=== PATIENT | female | born 1965 | race American Indian/Alaskan Native ===

== ENCOUNTER 2019-07-03 17:28 | Inpatient (IN) | payer MEDICARE ==
[2019-07-03] MEDS ORDERED: MAGNESIUM SULFATE 2 GM/50 ML BAG IV ONE (17:35)
[2019-07-03] MEDS ORDERED: methylPREDNISolone Sod Succinate 125 MG/2 ML INJ IV ONE (17:35)
--- NOTE | 2019-07-03 17:35 | Emergency Department Report ---
ED Shortness of Breath HPI - General Stated Complaint: TIM Time Seen by Provider: 07/03/19 17:32 Source: patient, EMS Mode of arrival: Stretcher Limitations: No Limitations - History of Present Illness Initial Comments: Patient is a 54-year-old female that presents emergency room with complaints of shortness of breath and difficulty breathing. Patient called EMS because she barely walk due to the worse of breath. Patient states her symptoms are severe and worsening. Patient states her symptoms are better with rest and worse with cough and exertion. Patient states she's had a fever over the past few days. Patient denies past medical history except for anxiety. Patient states she does not have a history of asthma or COPD. Patient brought in by EMS and is currently on a albuterol breathing treatment. Report received from EMS. EMS states that the patient is initially 86 on room air and placed on nonrebreather and oxygen improved to 92 MD Complaint: shortness of breath, cough -: Sudden Severity: severe Improves With: oxygen, upright position Worsens With: lying flat, exertion, movement Treatments Prior to Arrival: oxygen, bronchodilator - Related Data Home Medications Medication Instructions Recorded Confirmed Last Taken No Known Home Medications [No 07/03/19 07/03/19 Unknown Reported Home Medications] Allergies Allergy/AdvReac Type Severity Reaction Status Date / Time No Known Allergies Allergy Unverified 07/03/19 17:38 ED Review of Systems ROS: Stated complaint: TIM Other details as noted in HPI Constitutional: denies: chills, fever Eyes: denies: eye pain, eye discharge, vision change ENT: denies: ear pain, throat pain Respiratory: cough, orthopnea, shortness of breath, SOB with exertion, SOB at rest. denies: wheezing Cardiovascular: denies: chest pain, palpitations Endocrine: no symptoms reported Gastrointestinal: denies: abdominal pain, nausea, diarrhea Genitourinary: denies: urgency, dysuria, discharge Musculoskeletal: denies: back pain, joint swelling, arthralgia Skin: denies: rash, lesions Neurological: denies: headache, weakness, paresthesias Psychiatric: denies: anxiety, depression Hematological/Lymphatic: denies: easy bleeding, easy bruising ED Past Medical Hx - Past Medical History Previous Medical History?: Yes Hx Psychiatric Treatment: Yes (anx) - Surgical History Past Surgical History?: Yes Additional Surgical History: RORY at 35 - Family History Family history: no significant - Social History Smoking Status: Never Smoker Substance Use Type: None - Medications Home Medications: Home Medications Medication Instructions Recorded Confirmed Last Taken Type No Known Home Medications [No 07/03/19 07/03/19 Unknown History Reported Home Medications] ED Physical Exam - General Limitations: No Limitations General appearance: alert, in distress - Head Head exam: Present: atraumatic, normocephalic - Eye Eye exam: Present: normal appearance - ENT ENT exam: Present: mucous membranes dry - Neck Neck exam: Present: normal inspection - Respiratory Respiratory exam: Present: respiratory distress, rales, rhonchi, accessory muscle use - Cardiovascular Cardiovascular Exam: Present: regular rate, normal rhythm. Absent: systolic murmur, diastolic murmur, rubs, gallop - GI/Abdominal GI/Abdominal exam: Present: soft, normal bowel sounds. Absent: distended, tenderness, guarding - Rectal Rectal exam: Present: deferred - Extremities Exam Extremities exam: Present: normal inspection - Back Exam Back exam: Present: normal inspection - Neurological Exam Neurological exam: Present: alert, oriented X3 - Psychiatric Psychiatric exam: Present: normal affect, normal mood - Skin Skin exam: Present: warm, dry, intact, normal color. Absent: rash ED Course Vital Signs 07/03/19 07/03/19 07/03/19 17:32 17:46 17:47 Temperature 97.6 F Pulse Rate 113 H Pulse Rate [ Apical] Respiratory 30 H 29 H Rate Blood Pressure Blood Pressure 154/112 [Left] O2 Sat by Pulse 88 94 94 Oximetry 07/03/19 07/03/19 07/03/19 18:00 18:14 18:31 Temperature Pulse Rate 102 H 97 H 99 H Pulse Rate [ Apical] Respiratory 26 H 30 H 30 H Rate Blood Pressure 159/116 159/116 159/116 Blood Pressure [Left] O2 Sat by Pulse 96 95 96 Oximetry 07/03/19 07/03/19 07/03/19 18:35 19:13 19:31 Temperature Pulse Rate 97 H Pulse Rate [ Apical] Respiratory 30 H 21 28 H Rate Blood Pressure 150/112 150/112 150/112 Blood Pressure [Left] O2 Sat by Pulse 94 95 94 Oximetry 07/03/19 07/03/19 07/03/19 19:34 20:00 20:30 Temperature Pulse Rate 117 H Pulse Rate [ Apical] Respiratory 31 H 28 H 30 H Rate Blood Pressure 148/105 Blood Pressure [Left] O2 Sat by Pulse 96 91 99 Oximetry 07/03/19 07/03/19 07/03/19 20:31 21:00 21:41 Temperature Pulse Rate 115 H 106 H Pulse Rate [ Apical] Respiratory 34 H 29 H 22 Rate Blood Pressure 148/105 146/114 137/78 Blood Pressure [Left] O2 Sat by Pulse 96 96 99 Oximetry 07/03/19 21:45 Temperature Pulse Rate Pulse Rate [ 133 H Apical] Respiratory 35 H Rate Blood Pressure Blood Pressure [Left] O2 Sat by Pulse 93 Oximetry - Reevaluation(s) Reevaluation #1: Initial evaluation done and patient will be placed on BiPAP. On 15 L of oxygen and is still 86% 07/03/19 17:39 Reevaluation #2: Patient placed on BiPAP and O2 saturation improved. Patient given Solu-Medrol. X-ray done and shows pulmonary edema. 07/03/19 18:03 Reevaluation #3: Patient's sat improving. Patient is on BiPAP. Patient given Lasix. 07/03/19 18:40 Reevaluation #4: Discussed all results with patient. Patient agrees with plan of care and admission. Patient will be admitted to the hospital service. Patient's heart rate worsening and patient's rhonchi is increasing. Patient will be given a fluid challenge. 07/03/19 20:23 - Consultations Consultation #1: Hospitalist consult for admission. Hospitalist to admit patient. 07/03/19 20:23 ED Medical Decision Making - Lab Data Result diagrams: 07/03/19 17:54 07/03/19 17:54 - EKG Data -: EKG Interpreted by [place] EKG shows normal: sinus rhythm, axis, intervals, QRS complexes, ST-T waves Rate: normal - Radiology Data Radiology results: report reviewed, image reviewed CHEST 1 VIEW INDICATION / CLINICAL INFORMATION: Dyspnea. COMPARISON: None available. FINDINGS: SUPPORT DEVICES: None. HEART / MEDIASTINUM: No significant abnormality. LUNGS / PLEURA: Diffuse interstitial opacity and patchy areas of the airspace disease in both lungs. In the left upper lobe there are nodular appearing densities that may represent confluent are as of consolidation. A small left pleural effusion is noted No pneumothorax. ADDITIONAL FINDINGS: No significant additional findings. IMPRESSION: 1. Diffuse interstitial and patchy bilateral airspace opacities 2. Possible nodularity in the left upper lobe. CT angio chest INDICATION / CLINICAL INFORMATION: sob. TECHNIQUE: Precontrast bolus timing images were obtained followed by postcontrast axial and reformatted images. 3-plane MIP reconstructions were performed at an independent workstation by the technologist. All CT scans at this location are performed using CT dose reduction for ALARA by means of automated exposure control. COMPARISON: None available. FINDINGS: Pulmonary arterial enhancement is normal, no evidence of pulmonary embolus. There is diffuse interstitial opacity in patchy, mosaic pattern of groundglass opacity in both lungs, upper zone predominance. Findings are particularly dense in the left upper lobe but no discrete pulmonary nodules are visualized. No mediastinal adenopathy. There are small bilateral pleural effusions. Limited upper abdominal images are remarkable for atrophy of the right kidney. No significant osseous abnormality. IMPRESSION: 1. No evidence of pulmonary embolus. 2. Extensive bilateral pulmonary parenchymal disease characterized by interstitial opacity and groundglass densities. 3. Small bilateral pleural effusions. - Medical Decision Making Patient is a 54-year-old female that presents emergency room with respiratory distress, difficulty breathing, shortness of breath. Patient initial chest x- ray showed pulmonary edema and patient was treated with Lasix. After the CT was done it appeared that the patient was more a pneumonia and SIRS, so the patient was given fluids and antibiotics. Patient responded well ER. Patient was placed on BiPAP as well on initial evaluation patient's oxygen saturation improved. Patient was initially hypoxic. Patient also found to be tachycardic. Patient's blood pressure was stable in the ER. Patient's labs unremarkable except for elevated WBC, lactic acidosis and acidosis. Patient admitted to the hospitalist service and to the ICU. - Differential Diagnosis SOB. TIM. Resp distress. Respiratory failure. Hypoxia. SIRS. PNA Critical Care Time: Yes Critical care attestation.: If time is entered above; I have spent that time in minutes in the direct care of this critically ill patient, excluding procedure time. Critical Care Time: 65 minutes ED Disposition Clinical Impression: Respiratory distress, SOB (shortness of breath), Hypoxia, SIRS (systemic inflammatory response syndrome), Acidosis, Lactic acid acidosis Pneumonia Qualifiers: Pneumonia type: due to unspecified organism Laterality: bilateral Lung location: unspecified part of lung Qualified Code(s): J18.9 - Pneumonia, unspecified organism Pulmonary edema Qualifiers: Chronicity: acute Qualified Code(s): J81.0 - Acute pulmonary edema Respiratory failure Qualifiers: Chronicity: acute Respiratory failure complication: hypoxia Qualified Code(s): J96.01 - Acute respiratory failure with hypoxia Disposition: DC-09 OP ADMIT IP TO THIS HOSP Is pt being admited?: Yes Does the pt Need Aspirin: No Condition: Critical Time of Disposition: 20:22
[2019-07-03] MEDS ORDERED: CEFEPIME/NS 2 GM/100 ML 2 GM/100 ML BAG IV ONE (17:37)
[2019-07-03 18:05] LABS: Basophils # (Auto) 0.1 K/mm3 (0.0-0.1); Basophils % (Auto) 0.6 % (0.0-1.8); Hemoglobin 15.4 gm/dl (10.1-14.3); Lymphocytes % (Auto) 7.9 % (13.4-35.0); Mean Corpuscular HGB Conc 34 % (30-34); Mean Corpuscular Volume 99 fl (79-97); Monocytes # (Auto) 0.6 K/mm3 (0.0-0.8); Monocytes % (Auto) 4.9 % (0.0-7.3); Platelet Count 221 K/mm3 (140-440); Red Blood Count 4.63 M/mm3 (3.65-5.03); Red Cell Distribution Width 13.4 % (13.2-15.2)
[2019-07-03] MEDS ORDERED: FUROSEMIDE 40 MG/4 ML INJ IV ONE ×2 (18:06→20:17)
--- NOTE | 2019-07-03 18:22 | XRay Report ---
CHEST 1 VIEW INDICATION / CLINICAL INFORMATION: Dyspnea. COMPARISON: None available. FINDINGS: SUPPORT DEVICES: None. HEART / MEDIASTINUM: No significant abnormality. LUNGS / PLEURA: Diffuse interstitial opacity and patchy areas of the airspace disease in both lungs. In the left upper lobe there are nodular appearing densities that may represent confluent areas of co nsolidation. A small left pleural effusion is noted No pneumothorax. ADDITIONAL FINDINGS: No significant additional findings. IMPRESSION: 1. Diffuse interstitial and patchy bilateral airspace opacities 2. Possible nodularity in the left upper lobe. Signer Name: Swapnil Kinney MD Signed: 07/03/2019 6:18 PM Workstation Name: [id number]
[2019-07-03 18:27] LABS: Alanine Aminotransferase 272 units/L (7-56); Albumin 4.1 g/dL (3.9-5); BUN/Creatinine Ratio 17; Blood Urea Nitrogen 15 mg/dL (7-17); Hemolysis Index 90
--- NOTE | 2019-07-03 20:06 | Cat Scan Report ---
CT angio chest INDICATION / CLINICAL INFORMATION: sob. TECHNIQUE: Precontrast bolus timing images were obtained followed by postcontrast axial and reformatted images. 3-plane MIP reconstructions were performed at an independent workstation by the technologist. All CT scans at this location are performed using CT dose reduction for ALARA by means of automated exposure control. COMPARISON: None available. FINDINGS: Pulmonary arterial enhancement is normal, no evidence of pulmonary embolus. There is diffuse interstitial opacity in patchy, mosaic pattern of groundglass opacity in both lungs, upper zone predominance. Findings are particularly dense in the left upper lobe but no discrete pulmonary nodules are visualiz ed. No mediastinal adenopathy. There are small bilateral pleural effusions. Limited upper abdominal images are remarkable for atrophy of the right kidney. No significant osseous abnormality. IMPRESSION: 1. No evidence of pulmonary embolus. 2. Extensive bilateral pulmonary parenchymal disease characterized by interstitial opacity and ground glass densities. 3. Small bilateral pleural effusions. Signer Name: Swapnil Kinney MD Signed: 07/03/2019 8:02 PM Workstation Name: [id number]
--- NOTE | 2019-07-03 20:29 | History and Physical Report ---
History of Present Illness Chief complaint: I cant breathe History of present illness: 54 YO Female with Anxiety presents to ED for evaluation. Pt states that she has experienced shortness of breath over the past 1 day with worsening symptoms over the past 8 hours. Pt is unable to speak in complete sentences, and is using accessory muscles to breathe. EMS notified, and upon arrival the patient was found to be in distress. Pt transported to [facility]. Pt seen and evaluated in ED and found to have Acute Hypoxemic Respiratory Failure, SIRS, Bilateral Pneumonia, and Acidosis. Pt admitted to ICU and treated with supplemental oxygen, and nebulizer therapy without improvement. Pt denies fever, chills, CP, Palpitations, NVD, Trauma, Hemoptysis, Unilateral leg swelling, calf pain, Individual/Family history of DVT/PE/Bleeding/Blood Clotting Disorders, Inhalation of noxious/toxic fumes, or known ill contacts. Pt admitted to ICU. Pulmonary team consulted in ED. No prior admission for review. No medication listed for reconciliation at time of admission. Past History Past Medical History: other (Anxiety) Past Surgical History: hysterectomy Social history: single. denies: smoking, alcohol abuse, prescription drug abuse Family history: no significant family history (reviewed) Medications and Allergies Allergies Allergy/AdvReac Type Severity Reaction Status Date / Time No Known Allergies Allergy Unverified 07/03/19 17:38 Home Medications Medication Instructions Recorded Confirmed Last Taken Type No Known Home Medications [No 07/03/19 07/03/19 Unknown History Reported Home Medications] Review of Systems Constitutional: no weight loss, no weight gain, no fever, no chills Ears, nose, mouth and throat: no ear pain, no ear discharge, no tinnitis, no decreased hearing, no nose pain, no nasal congestion, no nasal discharge Breasts: no change in shape, no mass Cardiovascular: shortness of breath, no chest pain, no orthopnea, no palpitations Respiratory: no cough, no cough with sputum, no excessive sputum, no hemoptysis Gastrointestinal: no abdominal pain, no nausea, no vomiting, no diarrhea, no change in bowel habits, no hematemesis Genitourinary Female: no dysmenorrhea, no pelvic pain, no flank pain, no m enorrhagia, no dysuria, no urinary frequency, no urgency Menstruation: no currently menstrual, no premenarcheal, no post hysterectomy, no ammenorrhea, no ammenorrhea on BC, no period heavy, no period spotting Rectal: no pain, no incontinence, no bleeding, no itching, no hemorrhoids, no discharge Musculoskeletal: no neck stiffness, no neck pain, no shooting arm pain, no low back pain, no shooting leg pain, no leg numbness/tingling Integumentary: no rash, no pruritis, no sores, no wounds, no jaundice, no boils Neurological: no head injury, no transient paralysis, no paralysis, no numbness, no seizures, no syncope, no tremors Psychiatric: no anxiety, no memory loss, no change in sleep habits, no sleep disturbances, no insomnia, no change in libido, no disorientation Endocrine: no cold intolerance, no heat intolerance, no excessive thirst, no polydipsia, no nocturia, no excessive sweating Hematologic/Lymphatic: no easy bruising, no easy bleeding, no lymphadenopathy Allergic/Immunologic: no urticaria, no allergic rhinitis, no persistent infections, no anaphylaxis Exam - Constitutional Vitals: Temp Pulse Resp BP Pulse Ox 97.6 F 117 H 31 H 150/112 96 07/03/19 17:46 07/03/19 19:34 07/03/19 19:34 07/03/19 18:35 07/03/19 19:34 General appearance: Present: severe distress - EENT Eyes: Present: PERRL ENT: hearing intact, clear oral mucosa - Neck Neck: Present: supple, normal ROM - Respiratory Respiratory effort: labored, pursed lips, accessory muscle use, stridor Respiratory: left: diminished - Cardiovascular Rhythm: other (tachycardia) Heart Sounds: Present: S1 & S2. Absent: rub, click - Extremities Extremities: pulses symmetrical, No edema Peripheral Pulses: within normal limits - Abdominal General gastrointestinal: Present: soft, non-tender, non-distended, normal bowel sounds Female genitourinary: Present: normal - Musculoskeletal Musculoskeletal: generalized weakness - Psychiatric Psychiatric: agitated - Neurologic Neurologic: CNII-XII intact, moves all extremities Results - Labs CBC & Chem 7: 07/03/19 17:54 07/03/19 17:54 Labs: Abnormal lab results 07/03/19 07/03/19 07/03/19 Range/Units 17:54 17:54 17:54 WBC 12.6 H (4.5-11.0) K/mm3 Hgb 15.4 H (10.1-14.3) gm/dl Hct 46.0 H (30.3-42.9) % MCV 99 H (79-97) fl MCH 33 H (28-32) pg Lymph % (Auto) 7.9 L (13.4-35.0) % Lymph # 1.0 L (1.2-5.4) K/mm3 Seg Neutrophils % 86.6 H (40.0-70.0) % Seg Neutrophils # 11.0 H (1.8-7.7) K/mm3 POC ABG pH (7.35-7.45) POC ABG pO2 (80-105) VBG pH (7.320-7.420) Carbon Dioxide 16 L (22-30) mmol/L Glucose 210 H (65-100) mg/dL Lactic Acid 7.90 H* (0.7-2.0) mmol/L AST 226 H (5-40) units/L ALT 272 H (7-56) units/L 07/03/19 07/03/19 07/03/19 Range/Units 17:59 18:41 19:15 WBC (4.5-11.0) K/mm3 Hgb (10.1-14.3) gm/dl Hct (30.3-42.9) % MCV (79-97) fl MCH (28-32) pg Lymph % (Auto) (13.4-35.0) % Lymph # (1.2-5.4) K/mm3 Seg Neutrophils % (40.0-70.0) % Seg Neutrophils # (1.8-7.7) K/mm3 POC ABG pH 7.305 L (7.35-7.45) POC ABG pO2 77 L (80-105) VBG pH 7.174 L* (7.320-7.420) Carbon Dioxide (22-30) mmol/L Glucose (65-100) mg/dL Lactic Acid 6.90 H* (0.7-2.0) mmol/L AST (5-40) units/L ALT (7-56) units/L Assessment and Plan - Patient Problems (1) Respiratory failure Current Visit: Yes Status: Acute Qualifiers: Respiratory failure complication: hypoxia Plan to address problem: Admit to ICU: Chest X ray, CT chest, ABG, pulse oximetry, NIPPV as clinically indicated, Pulmonary consulted, The high probability of a clinically significant, sudden or life threatening deterioration of the [repiratory, neuro, renal] system(s) required my full and direct attention, intervention and personal management. The aggregate critical care time was [65] minutes. This time is in addition to time spent performing reported procedures but includes the following: [x] Data Review and interpretation [x] Patient assessment and monitoring of vital signs [x] Documentation [x] Medication orders and management (2) Pneumonia Current Visit: Yes Status: Acute Qualifiers: Laterality: bilateral Plan to address problem: Pneumonia protocol: Chest x ray, IV antibiotic therapy, blood cultures, supplemental oxygen, nebulizer therapy, pulse oximetry, (3) SIRS (systemic inflammatory response syndrome) Current Visit: Yes Status: Acute Plan to address problem: IV antibiotic therapy, CBC, CMP, chest x ray, urinalysis. (4) Elevated LFTs Current Visit: Yes Status: Acute Plan to address problem: Hepatic panel, (5) Acidosis Current Visit: Yes Status: Acute Plan to address problem: IV fluid resuscitation therapy, IV bicarbonate therapy (6) DVT prophylaxis Current Visit: Yes Status: Acute Plan to address problem: SCD to BLE while in bed
[2019-07-03] MEDS ORDERED: ALBUTEROL 2.5 MG/3 ML NEBU IH PRN (20:30)
[2019-07-03] MEDS ORDERED: FUROSEMIDE 40 MG/4 ML INJ ONE (20:31)
[2019-07-03] MEDS ORDERED: SODIUM CHLORIDE 0.9% 1000 ML 1,000 ML IV ONE ×2 (20:37→21:25)
[2019-07-03] MEDS ORDERED: SODIUM CHLORIDE 0.9% 1000 ML 1,000 ML ONE (20:38)
[2019-07-03] MEDS ORDERED: SODIUM BICARB 8.4% 50 MEQ/50 ML SYRINGE IV ONE (21:00)
[2019-07-03 21:12] LABS: Alanine Aminotransferase 283 units/L (7-56); Albumin 4.5 g/dL (3.9-5)
[2019-07-03 21:14] LABS: Bilirubin,Direct < 0.2 mg/dL (0-0.2)
[2019-07-03] MEDS: FUROSEMIDE 40 MG/4 ML INJ IV SCH (23:37)
[2019-07-04 04:21] LABS: Basophils % (Auto) 0.2 % (0.0-1.8); Hematocrit 47.9 % (30.3-42.9); Hemoglobin 16.6 gm/dl (10.1-14.3); Lymphocytes # (Auto) 1.1 K/mm3 (1.2-5.4); Lymphocytes % (Auto) 7.1 % (13.4-35.0); Mean Corpuscular HGB Conc 35 % (30-34); Mean Corpuscular Volume 97 fl (79-97); Monocytes # (Auto) 0.6 K/mm3 (0.0-0.8); Monocytes % (Auto) 4.1 % (0.0-7.3); Platelet Count 195 K/mm3 (140-440); Red Blood Count 4.96 M/mm3 (3.65-5.03); Red Cell Distribution Width 13.6 % (13.2-15.2)
[2019-07-04 04:46] LABS: Alanine Aminotransferase 224 units/L (7-56); Albumin 3.9 g/dL (3.9-5); BUN/Creatinine Ratio 18; Blood Urea Nitrogen 18 mg/dL (7-17); Calcium 9.1 mg/dL (8.4-10.2); Hemolysis Index 28
[2019-07-04] MEDS: FUROSEMIDE 40 MG/4 ML INJ IV SCH ×2 (05:22→18:44)
[2019-07-04 06:50] LABS: ABG Base Excess -7.1 mmol/L (-2.0-3.0); ABG HCO3 15.7 mmol/L (20.0-26.0); ABG Methemoglobin 0.5 % (0.0-1.5); ABG Oxygen Saturation 98.8 % (95.0-99.0); ABG PCO2 26.1 mm Hg; ABG PH 7.398 pH Units (7.350-7.450); ABG PO2 141.7 mm Hg (80.0-90.0)
--- NOTE | 2019-07-04 08:17 | Consultation ---
History of Present Illness Consult date: 07/04/19 Requesting physician: DB CASTELLANOS Reason for consult: other (Acute Hypoxemic Respiratory Failure) History of present illness: PULMONARY/CCM CONSULT NOTE (Full dictation # [id number]) Please see dictated notes for full details Past History Past Medical History: other (Anxiety) Past Surgical History: hysterectomy Social history: single. denies: smoking, alcohol abuse, prescription drug abuse Family history: no significant family history (reviewed) Medications and Allergies Allergies Allergy/AdvReac Type Severity Reaction Status Date / Time No Known Allergies Allergy Unverified 07/03/19 17:38 Home Medications Medication Instructions Recorded Confirmed Last Taken Type No Known Home Medications [No 07/03/19 07/03/19 Unknown History Reported Home Medications] Active Meds: Active Medications Albuterol (Proventil) 2.5 mg IH Q3H PRN PRN Reason: Shortness Of Breath Enoxaparin Sodium (Lovenox) 40 mg SUB-Q QDAY SHYANN Furosemide (Lasix) 40 mg IV 0600,1800 [facility] Last Admin: 07/04/19 05:22 Dose: 40 mg Documented by: Levofloxacin/Dextrose (Levaquin 750mg/150ml) 750 mg in 150 mls @ 100 mls/hr IV Q24H SHYANN; Protocol Stop: 07/07/19 22:29 Last Admin: 07/03/19 23:17 Dose: 100 mls/hr Documented by: Sodium Chloride (Sodium Chloride Flush Syringe 10 Ml) 10 ml IV BID SHYANN Last Admin: 07/03/19 23:15 Dose: 10 ml Documented by: Sodium Chloride (Sodium Chloride Flush Syringe 10 Ml) 10 ml IV PRN PRN PRN Reason: LINE FLUSH Physical Examination Vital signs: Vital Signs Pulse Ox 88 07/03/19 17:32 Results - Laboratory Findings CBC and BMP: 07/04/19 04:02 07/04/19 04:02 ABG POC ABG pH 7.246 (7.35-7.45) L 07/03/19 23:02 ABG pH 7.398 pH Units (7.350-7.450) 07/04/19 06:30 POC ABG pCO2 30.4 (35-45) L 07/03/19 23:02 ABG pCO2 26.1 mm Hg 07/04/19 06:30 POC ABG pO2 75 (80-105) L 07/03/19 23:02 ABG pO2 141.7 mm Hg (80.0-90.0) H 07/04/19 06:30 POC ABG HCO3 13.2 (22-26 mml/L) 07/03/19 23:02 POC ABG Total CO2 14 (23-27mmol/L) 07/03/19 23:02 POC ABG O2 Sat 92 07/03/19 23:02 ABG O2 Saturation 98.8 % (95.0-99.0) 07/04/19 06:30 Abnormal lab findings: Abnormal Labs 07/03/19 07/03/19 07/03/19 17:54 17:54 17:54 WBC 12.6 H Hgb 15.4 H Hct 46.0 H MCV 99 H MCH 33 H MCHC Lymph % (Auto) 7.9 L Lymph # 1.0 L Seg Neutrophils % 86.6 H Seg Neutrophils # 11.0 H POC ABG pH POC ABG pCO2 POC ABG pO2 ABG pO2 ABG HCO3 ABG Base Excess VBG pH Carbon Dioxide 16 L BUN Glucose 210 H Lactic Acid 7.90 H* AST 226 H ALT 272 H Total Protein 07/03/19 07/03/19 07/03/19 17:59 18:41 19:15 WBC Hgb Hct MCV MCH MCHC Lymph % (Auto) Lymph # Seg Neutrophils % Seg Neutrophils # POC ABG pH 7.305 L POC ABG pCO2 POC ABG pO2 77 L ABG pO2 ABG HCO3 ABG Base Excess VBG pH 7.174 L* Carbon Dioxide BUN Glucose Lactic Acid 6.90 H* AST ALT Total Protein 07/03/19 07/03/19 07/03/19 20:37 20:37 21:51 WBC Hgb Hct MCV MCH MCHC Lymph % (Auto) Lymph # Seg Neutrophils % Seg Neutrophils # POC ABG pH POC ABG pCO2 POC ABG pO2 ABG pO2 ABG HCO3 ABG Base Excess VBG pH Carbon Dioxide BUN Glucose Lactic Acid 6.50 H* 5.80 H* AST 257 H ALT 283 H Total Protein 8.3 H 07/03/19 07/04/19 07/04/19 23:02 00:46 04:02 WBC 15.2 H Hgb 16.6 H Hct 47.9 H MCV MCH 34 H MCHC 35 H Lymph % (Auto) 7.1 L Lymph # 1.1 L Seg Neutrophils % 88.6 H Seg Neutrophils # 13.5 H POC ABG pH 7.246 L POC ABG pCO2 30.4 L POC ABG pO2 75 L ABG pO2 ABG HCO3 ABG Base Excess VBG pH Carbon Dioxide BUN Glucose Lactic Acid 8.00 H* AST ALT Total Protein 07/04/19 07/04/19 04:02 06:30 WBC Hgb Hct MCV MCH MCHC Lymph % (Auto) Lymph # Seg Neutrophils % Seg Neutrophils # POC ABG pH POC ABG pCO2 POC ABG pO2 ABG pO2 141.7 H ABG HCO3 15.7 L ABG Base Excess -7.1 L VBG pH Carbon Dioxide 17 L BUN 18 H Glucose 138 H Lactic Acid AST 137 H ALT 224 H Total Protein
[2019-07-04] MEDS ORDERED: FAMOTIDINE 20 MG/2 ML INJ IV SCH (10:00)
[2019-07-04] MEDS: ENOXAPARIN 40 MG/0.4 ML INJ SUB-Q SCH (10:07)
--- NOTE | 2019-07-04 13:01 | Progress Note ---
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 The aggregate critical care time was [35] minutes. This time is in addition to time spent performing reported procedures but includes the following: [x] Data Review and interpretation [x] Patient assessment and monitoring of vital signs [x] Documentation [x] Medication orders and management Subjective Date of service: 07/04/19 Interval history: Ptaient seen and examined On NRB - 100% Fio2 family at bedside c/o SOB even while speaks Objective - Constitutional Vitals: Vital Signs - 12hr 07/04/19 07/04/19 07/04/19 01:00 01:11 01:21 Temperature Pulse Rate 115 H 115 H 114 H Pulse Rate [ Apical] Respiratory 32 H 32 H 30 H Rate Blood Pressure 127/100 129/98 129/98 O2 Sat by Pulse 97 97 98 Oximetry 07/04/19 07/04/19 07/04/19 01:30 01:41 01:51 Temperature Pulse Rate 112 H 112 H 120 H Pulse Rate [ Apical] Respiratory 30 H 31 H 29 H Rate Blood Pressure 123/97 123/97 123/97 O2 Sat by Pulse 98 100 99 Oximetry 07/04/19 07/04/19 07/04/19 02:00 02:11 02:21 Temperature Pulse Rate 114 H 114 H 114 H Pulse Rate [ Apical] Respiratory 32 H 30 H 31 H Rate Blood Pressure 115/90 115/90 115/90 O2 Sat by Pulse 96 100 99 Oximetry 07/04/19 07/04/19 07/04/19 02:30 02:41 02:51 Temperature Pulse Rate 111 H 118 H 110 H Pulse Rate [ Apical] Respiratory 30 H 30 H 32 H Rate Blood Pressure 115/91 115/90 115/90 O2 Sat by Pulse 98 99 99 Oximetry 07/04/19 07/04/19 07/04/19 03:00 03:11 03:21 Temperature Pulse Rate 111 H 110 H 110 H Pulse Rate [ 114 H Apical] Respiratory 31 H 30 H 30 H Rate Blood Pressure 118/94 115/91 115/91 O2 Sat by Pulse 99 99 100 Oximetry 07/04/19 07/04/19 07/04/19 03:30 03:41 03:51 Temperature Pulse Rate 114 H 113 H 118 H Pulse Rate [ Apical] Respiratory 26 H 30 H 29 H Rate Blood Pressure 121/87 118/94 118/94 O2 Sat by Pulse 97 100 99 Oximetry 07/04/19 07/04/19 07/04/19 04:00 04:11 04:21 Temperature 97.8 F Pulse Rate 115 H 121 H 122 H Pulse Rate [ Apical] Respiratory 29 H 31 H 60 H Rate Blood Pressure 121/86 121/86 121/86 O2 Sat by Pulse 99 99 99 Oximetry 07/04/19 07/04/19 07/04/19 04:30 04:41 04:51 Temperature Pulse Rate 116 H 115 H 113 H Pulse Rate [ Apical] Respiratory 26 H 31 H 26 H Rate Blood Pressure 119/94 119/94 121/86 O2 Sat by Pulse 98 100 100 Oximetry 07/04/19 07/04/19 07/04/19 05:00 05:11 05:21 Temperature Pulse Rate 118 H 111 H 111 H Pulse Rate [ Apical] Respiratory 23 30 H 30 H Rate Blood Pressure 112/89 112/89 119/94 O2 Sat by Pulse 99 99 98 Oximetry 07/04/19 07/04/19 07/04/19 05:30 05:41 05:51 Temperature Pulse Rate 109 H 108 H 103 H Pulse Rate [ Apical] Respiratory 30 H 30 H 30 H Rate Blood Pressure 118/95 118/95 118/95 O2 Sat by Pulse 95 97 97 Oximetry 07/04/19 07/04/19 07/04/19 06:01 06:11 06:31 Temperature Pulse Rate 111 H 110 H 114 H Pulse Rate [ Apical] Respiratory 31 H 30 H 31 H Rate Blood Pressure 118/95 118/95 78/61 O2 Sat by Pulse 97 99 93 Oximetry 07/04/19 07/04/19 07/04/19 07:00 07:30 07:35 Temperature Pulse Rate 100 H 106 H Pulse Rate [ Apical] Respiratory 30 H 30 H Rate Blood Pressure 102/78 112/87 O2 Sat by Pulse 98 98 95 Oximetry 07/04/19 07/04/19 07/04/19 08:00 08:30 09:00 Temperature 98.3 F Pulse Rate 112 H 111 H 120 H Pulse Rate [ Apical] Respiratory 25 H 30 H 33 H Rate Blood Pressure 115/92 112/88 125/89 O2 Sat by Pulse 93 92 90 Oximetry 07/04/19 07/04/19 07/04/19 09:30 10:00 10:30 Temperature Pulse Rate 113 H 110 H 107 H Pulse Rate [ Apical] Respiratory 30 H 31 H 34 H Rate Blood Pressure 112/82 127/95 127/95 O2 Sat by Pulse 87 91 Oximetry 07/04/19 07/04/19 07/04/19 11:00 11:56 12:00 Temperature 97.7 F Pulse Rate 107 H Pulse Rate [ 103 H Apical] Respiratory 30 H 31 H Rate Blood Pressure 129/98 O2 Sat by Pulse 94 Oximetry General appearance: Present: mild distress, well-nourished - EENT Eyes: PERRL, EOM intact ENT: hearing intact, clear oral mucosa Ears: bilateral: normal - Neck Neck: supple, normal ROM - Respiratory Respiratory effort: labored Respiratory: bilateral: diminished, rales, wheezing - Cardiovascular Rhythm: regular Heart Sounds: Present: S1 & S2. Absent: gallop, rub Extremities: pulses intact, No edema, normal color, Full ROM - Gastrointestinal General gastrointestinal: Present: soft, non-tender, non-distended, normal bowel sounds - Integumentary Integumentary: clear, warm, dry - Musculoskeletal Musculoskeletal: 1, strength equal bilaterally - Neurologic Neurologic: moves all extremities - Psychiatric Psychiatric: memory intact, appropriate mood/affect, intact judgment & insight - Labs CBC & Chem 7: 07/04/19 04:02 07/05/19 13:01 Labs: Abnormal lab results 07/03/19 07/03/19 07/03/19 Range/Units 17:54 17:54 17:54 WBC 12.6 H (4.5-11.0) K/mm3 Hgb 15.4 H (10.1-14.3) gm/dl Hct 46.0 H (30.3-42.9) % MCV 99 H (79-97) fl MCH 33 H (28-32) pg MCHC (30-34) % Lymph % (Auto) 7.9 L (13.4-35.0) % Lymph # 1.0 L (1.2-5.4) K/mm3 Seg Neutrophils % 86.6 H (40.0-70.0) % Seg Neutrophils # 11.0 H (1.8-7.7) K/mm3 POC ABG pH (7.35-7.45) POC ABG pCO2 (35-45) POC ABG pO2 (80-105) ABG pO2 (80.0-90.0) mm Hg ABG HCO3 (20.0-26.0) mmol/L ABG Base Excess (-2.0-3.0) mmol/L VBG pH (7.320-7.420) Carbon Dioxide 16 L (22-30) mmol/L BUN (7-17) mg/dL Glucose 210 H (65-100) mg/dL Lactic Acid 7.90 H* (0.7-2.0) mmol/L AST 226 H (5-40) units/L ALT 272 H (7-56) units/L C-Reactive Protein (0.00-1.30) mg/dL NT-Pro-B Natriuret Pep (0-900) pg/mL Total Protein (6.3-8.2) g/dL 07/03/19 07/03/19 07/03/19 Range/Units 17:59 18:41 19:15 WBC (4.5-11.0) K/mm3 Hgb (10.1-14.3) gm/dl Hct (30.3-42.9) % MCV (79-97) fl MCH (28-32) pg MCHC (30-34) % Lymph % (Auto) (13.4-35.0) % Lymph # (1.2-5.4) K/mm3 Seg Neutrophils % (40.0-70.0) % Seg Neutrophils # (1.8-7.7) K/mm3 POC ABG pH 7.305 L (7.35-7.45) POC ABG pCO2 (35-45) POC ABG pO2 77 L (80-105) ABG pO2 (80.0-90.0) mm Hg ABG HCO3 (20.0-26.0) mmol/L ABG Base Excess (-2.0-3.0) mmol/L VBG pH 7.174 L* (7.320-7.420) Carbon Dioxide (22-30) mmol/L BUN (7-17) mg/dL Glucose (65-100) mg/dL Lactic Acid 6.90 H* (0.7-2.0) mmol/L AST (5-40) units/L ALT (7-56) units/L C-Reactive Protein (0.00-1.30) mg/dL NT-Pro-B Natriuret Pep (0-900) pg/mL Total Protein (6.3-8.2) g/dL 07/03/19 07/03/19 07/03/19 Range/Units 20:37 20:37 21:51 WBC (4.5-11.0) K/mm3 Hgb (10.1-14.3) gm/dl Hct (30.3-42.9) % MCV (79-97) fl MCH (28-32) pg MCHC (30-34) % Lymph % (Auto) (13.4-35.0) % Lymph # (1.2-5.4) K/mm3 Seg Neutrophils % (40.0-70.0) % Seg Neutrophils # (1.8-7.7) K/mm3 POC ABG pH (7.35-7.45) POC ABG pCO2 (35-45) POC ABG pO2 (80-105) ABG pO2 (80.0-90.0) mm Hg ABG HCO3 (20.0-26.0) mmol/L ABG Base Excess (-2.0-3.0) mmol/L VBG pH (7.320-7.420) Carbon Dioxide (22-30) mmol/L BUN (7-17) mg/dL Glucose (65-100) mg/dL Lactic Acid 6.50 H* 5.80 H* (0.7-2.0) mmol/L AST 257 H (5-40) units/L ALT 283 H (7-56) units/L C-Reactive Protein (0.00-1.30) mg/dL NT-Pro-B Natriuret Pep (0-900) pg/mL Total Protein 8.3 H (6.3-8.2) g/dL 07/03/19 07/04/19 07/04/19 Range/Units 23:02 00:46 04:02 WBC 15.2 H (4.5-11.0) K/mm3 Hgb 16.6 H (10.1-14.3) gm/dl Hct 47.9 H (30.3-42.9) % MCV (79-97) fl MCH 34 H (28-32) pg MCHC 35 H (30-34) % Lymph % (Auto) 7.1 L (13.4-35.0) % Lymph # 1.1 L (1.2-5.4) K/mm3 Seg Neutrophils % 88.6 H (40.0-70.0) % Seg Neutrophils # 13.5 H (1.8-7.7) K/mm3 POC ABG pH 7.246 L (7.35-7.45) POC ABG pCO2 30.4 L (35-45) POC ABG pO2 75 L (80-105) ABG pO2 (80.0-90.0) mm Hg ABG HCO3 (20.0-26.0) mmol/L ABG Base Excess (-2.0-3.0) mmol/L VBG pH (7.320-7.420) Carbon Dioxide (22-30) mmol/L BUN (7-17) mg/dL Glucose (65-100) mg/dL Lactic Acid 8.00 H* (0.7-2.0) mmol/L AST (5-40) units/L ALT (7-56) units/L C-Reactive Protein (0.00-1.30) mg/dL NT-Pro-B Natriuret Pep (0-900) pg/mL Total Protein (6.3-8.2) g/dL 07/04/19 07/04/19 07/04/19 Range/Units 04:02 06:30 07:52 WBC (4.5-11.0) K/mm3 Hgb (10.1-14.3) gm/dl Hct (30.3-42.9) % MCV (79-97) fl MCH (28-32) pg MCHC (30-34) % Lymph % (Auto) (13.4-35.0) % Lymph # (1.2-5.4) K/mm3 Seg Neutrophils % (40.0-70.0) % Seg Neutrophils # (1.8-7.7) K/mm3 POC ABG pH (7.35-7.45) POC ABG pCO2 (35-45) POC ABG pO2 (80-105) ABG pO2 141.7 H (80.0-90.0) mm Hg ABG HCO3 15.7 L (20.0-26.0) mmol/L ABG Base Excess -7.1 L (-2.0-3.0) mmol/L VBG pH (7.320-7.420) Carbon Dioxide 17 L (22-30) mmol/L BUN 18 H (7-17) mg/dL Glucose 138 H (65-100) mg/dL Lactic Acid 4.10 H* (0.7-2.0) mmol/L AST 137 H (5-40) units/L ALT 224 H (7-56) units/L C-Reactive Protein (0.00-1.30) mg/dL NT-Pro-B Natriuret Pep (0-900) pg/mL Total Protein (6.3-8.2) g/dL 07/04/19 07/04/19 07/04/19 Range/Units 08:52 08:52 08:52 WBC (4.5-11.0) K/mm3 Hgb (10.1-14.3) gm/dl Hct (30.3-42.9) % MCV (79-97) fl MCH (28-32) pg MCHC (30-34) % Lymph % (Auto) (13.4-35.0) % Lymph # (1.2-5.4) K/mm3 Seg Neutrophils % (40.0-70.0) % Seg Neutrophils # (1.8-7.7) K/mm3 POC ABG pH (7.35-7.45) POC ABG pCO2 (35-45) POC ABG pO2 (80-105) ABG pO2 (80.0-90.0) mm Hg ABG HCO3 (20.0-26.0) mmol/L ABG Base Excess (-2.0-3.0) mmol/L VBG pH (7.320-7.420) Carbon Dioxide (22-30) mmol/L BUN (7-17) mg/dL Glucose (65-100) mg/dL Lactic Acid 3.60 H* (0.7-2.0) mmol/L AST (5-40) units/L ALT (7-56) units/L C-Reactive Protein 4.80 H (0.00-1.30) mg/dL NT-Pro-B Natriuret Pep 11911 H (0-900) pg/mL Total Protein (6.3-8.2) g/dL - Imaging and cardiology Chest x-ray: report reviewed
--- NOTE | 2019-07-05 02:39 | Consultation ---
PULMONARY CRITICAL CARE CONSULT NOTE CONSULTING PHYSICIAN: Dr. Cerrato. REASON FOR CONSULTATION: Acute hypoxemic respiratory failure. CHIEF COMPLAINT AND HISTORY OF PRESENT ILLNESS: The patient is a 54-year-old -Italian female with past medical history significant only for a diagnosis of anxiety, who came to the Emergency Room complaining of really about 1-2 days at most of increasing shortness of breath. She was talking in complete sentences using accessory muscles. Emergency medical services had found the patient in respiratory distress. In the ER, she was found to have bilateral pulmonary infiltrates diagnosed with acute hypoxemic respiratory failure. The patient admits to about a 10+ pack year tobacco smoking history. She had multiple bouts of vomiting at home for about a day prior to coming into the hospital. She denied any real fevers or chills. She denied any sick contacts. She denied any new onset leg pain or swelling either unilaterally or bilaterally or any suggestion of a deep venous thrombosis. She does admit to dyspnea on exertion going on for a few days as well as episodes of paroxysmal nocturnal dyspnea. This really is as much of the history of presentation. When I stopped by to see her, she was resting in bed. She had been on continuous BiPAP therapy requiring significantly high pressures of BiPAP of about 25/5 with a backup rate of 30 to match her own rate of about 45 breaths per minute. This really is as much of the history of presentation as I have. PAST MEDICAL HISTORY: Anxiety disorder. PAST SURGICAL HISTORY: Hysterectomy. MEDICATIONS: She was on at the time I stopped by her to see were reviewed, pertinent medications include the following: Albuterol 2.5 mg nebulized q.3 hours p.r.n. shortness of breath, Lovenox 40 mg subcutaneous daily, Pepcid 20 mg IV daily had been started earlier Lasix, she had received 40 mg IV dose and now was being placed on 40 mg IV q.12 hours. She received a dose of cefepime 2 g IV x 1 in the Emergency Room and a dose of Levaquin. She apparently also received 125 mg IV of Solu-Medrol. ALLERGIES: No known drug allergies. DIET: Well-built lady. Denies acute weight loss or gain in the preceding few weeks to months. FAMILY AND SOCIAL HISTORY: Lives in the community, 10+ pack year tobacco smoking history. Denies alcohol or illicit drug use or abuse. There is a family history of hypertension. REVIEW OF SYSTEMS: No loss of consciousness. No new onset seizures. No new onset focal weakness. No gross hematochezia or melena. No gross hematuria, no hematemesis. She did have the nausea and vomiting. She denied heat or cold intolerance. She denied polydipsia or polyuria. She denied any new rashes on her body. She denies any arthralgias or joint swelling. She denies any history of seizures. She denied any upper respiratory tract infection type symptoms. No history of allergic rhinitis. No sore throat. Complete 13-system review of systems obtained. Pertinent positives and/or negatives as in body of history above, otherwise are noncontributory. PHYSICAL EXAMINATION: VITAL SIGNS: At presentation, she was afebrile, temperature 97.6 degrees Fahrenheit with a pulse of 113, respiratory rate of 30, blood pressure 152/112, O2 sats initially were 88%, inspired oxygen concentration at that time was not recorded. When I stopped by to see her, she was on 50% Ventimask with O2 sats of 91-92%. GENERAL: She is a middle-aged -Italian female, normocephalic, atraumatic, talking to me still in a significantly interrupted sentences with moderately increased respiratory effort at rest. HEAD, EYES, EARS, NOSE AND THROAT: She is anicteric. No conjunctival erythema. Oropharynx was moist. Mallampati #3 oropharynx. No gross jugular venous distention, no thyromegaly. NECK: Grossly, there were no palpable lymph nodes in the supraclavicular or submandibular lymph node chains. LUNGS: Auscultation of both lung reyes revealed bilateral rales, no wheezing. HEART: Heart sounds 1 and 2 are heard. They were regular in rate and rhythm at time of my evaluation without overt rubs or murmurs. ABDOMEN: Soft, flat. Bowel sounds are positive, nontender, no palpable hepatosplenomegaly. EXTREMITIES: Without overt digital clubbing, no cyanosis, no pedal edema. Pedal pulses are 2+ bilaterally. NEUROLOGIC: Pupils are equal, round, about 4 mm, reactive to light. Extraocular muscle movements are intact. She moves all 4 extremities spontaneously. No fasciculations, no spasticity. SKIN: Normal turgor without overt cellulitis or rash. LABORATORY DATA: From my review are as follows: White cell count 12,600, hemoglobin 15.4, hematocrit 46.0 and platelet count 221. No band forms reported. Arterial blood gas at presentation showed a pH of 7.31, pCO2 was not reported, and a pO2 of 77 that was on 60% FiO2, went down to 7.25 on the pH with a pCO2 of 30 and pO2 of 75 on 70% FiO2. Most recent gas now shows a pH of 7.40, pCO2 of 26 and pO2 of 142 that was on 50%, I believe on BiPAP. Serum sodium 138, potassium 4.0, chloride 99, bicarbonate 16, BUN 15, creatinine 0.9, glucose was 210. Lactic acid level was 6.9, down to 3.6. AST was 226, ALT was 272, otherwise liver function tests within normal limits. Alcohol level was non-detectable. Microbiology studies, two sets of blood cultures, no growth to date. CT angiogram was done, it shows no gross filling defects consistent with pulmonary emboli, extensive bilateral pulmonary infiltrates with small bilateral pleural effusions, ground glass opacifications, overall more consistent with pulmonary edema, in my opinion; however, the chest x-ray also showed gross cardiomegaly. A 2D echocardiogram has been done and is now being reported as having an ejection fraction of less than 10-15% with a right ventricular systolic pressure is 37. No mention of diastolic function. ASSESSMENT: 1. Acute hypoxemic respiratory failure, requiring noninvasive continuous ventilation therapy. 2. Acute pulmonary edema. 3. Acute congestive heart failure exacerbation, actually new onset. 4. Leukocytosis. 5. Tobacco use disorder. 6. Metabolic acidosis, mild. 7. Lactic acidosis. 8. Elevated serum transaminases. 9. Possible occult pneumonia. 10. History of anxiety. PLAN: We will keep him on supplemental oxygen therapy. I will continue noninvasive ventilation therapy attempt to give her breaks during the day. We will continue to schedule diuresis q. 12 hours 40 mg IV as tolerated. Cardiology will be consulted. She will probably end up on heart failure medications. She probably needs a heart catheterization, I will defer to them. I will get a CRP level and follow her clinically off antibiotics at this time. Aspiration precautions will be maintained. Oxygen will be weaned to keep sats greater than or equal to about 90%. She will be placed or she is on GI prophylaxis as well as DVT prophylaxis. Flu and pneumonia vaccination will be addressed per protocol. I will be getting cardiac enzymes in this lady. It does not seem like anywhere gotten earlier. Thank you very much for the consult Dr. Cerrato. We will follow along and make further recommendations as picture progresses/becomes clearer. She is critically ill on life-sustaining interventions including continuous noninvasive ventilation at high risk of decompensation including the risk of . At this time, I spent about 35-40 minutes of critical care time without overlap excluding any procedural time that may be necessary. JOB# [id number] LYUDMILA/GREGG LY
[2019-07-05] MEDS: FUROSEMIDE 40 MG/4 ML INJ IV SCH ×2 (06:04→17:40)
[2019-07-05] MEDS: ENOXAPARIN 40 MG/0.4 ML INJ SUB-Q SCH (09:22)
[2019-07-05] MEDS: FAMOTIDINE 20 MG TAB PO SCH (09:22)
--- NOTE | 2019-07-05 11:50 | Progress Note ---
Assessment and Plan Acute hypoxemic respiratory failure Acute pulmonary edema. Acute congestive heart failure exacerbation (new onset) Leukocytosis. Tobacco use disorder. Metabolic acidosis, mild. Lactic acidosis. Elevated serum transaminases. Possible occult pneumonia. History of anxiety. - begin prn xanax for anxiolysis - continue to wean supplemental oxygen to keep O2 sat's > 90% - change BIPAP to prn at this point - continue diuresis - prn bronchodilators - heart failure evaluation per cardiology - follow clinically off AB's - GI & VTE prophylaxis - continue other care per attending / other consultants .... transfer to telemetry floor [place] Subjective Date of service: 07/05/19 Principal diagnosis: Ac. hypoxemic resp failure; Ac. pulmonary edema; Acute CHF (New Onset) Interval history: Patient is seen today for: Acute hypoxemic respiratory failure; Acute pulmonary edema; Acute CHF exacerbation (new onset); Leukocytosis; Tobacco use disorder; Metabolic acidosis, mild; Lactic acidosis; Elevated serum transaminases; Possible occult pneumonia; History of anxiety. Seen and examined at bedside; 24hour events reviewed; nursing and respiratory care staff consulted; no adverse overnight events reported to me; resting peacefully in bed; down to 3LNC; denies acute chest pains or palpitations; she was having anxiety issues this morning; seen by cardiology now; no new issues otherwise Objective Vital Signs - 12hr 07/05/19 07/05/19 07/05/19 00:00 00:30 01:00 Temperature Pulse Rate 106 H 95 H 96 H Pulse Rate [ 120 H Apical] Pulse Rate [ 120 H Left Dorsalis Pedis] Pulse Rate [ 120 H Right Dorsalis Pedis] Respiratory 25 H 22 26 H Rate Blood Pressure 87/65 97/73 105/80 O2 Sat by Pulse 97 Oximetry 07/05/19 07/05/19 07/05/19 01:30 02:00 02:30 Temperature Pulse Rate 97 H 101 H 88 Pulse Rate [ Apical] Pulse Rate [ Left Dorsalis Pedis] Pulse Rate [ Right Dorsalis Pedis] Respiratory 26 H 27 H 24 Rate Blood Pressure 100/78 92/72 86/65 O2 Sat by Pulse 95 Oximetry 07/05/19 07/05/19 07/05/19 03:00 03:03 03:30 Temperature 98.6 F Pulse Rate 99 H 95 H Pulse Rate [ Apical] Pulse Rate [ Left Dorsalis Pedis] Pulse Rate [ Right Dorsalis Pedis] Respiratory 25 H 22 Rate Blood Pressure 104/78 108/83 O2 Sat by Pulse 98 97 Oximetry 07/05/19 07/05/19 07/05/19 04:00 04:01 04:30 Temperature Pulse Rate 99 H 89 Pulse Rate [ 120 H Apical] Pulse Rate [ 112 H Left Dorsalis Pedis] Pulse Rate [ 112 H Right Dorsalis Pedis] Respiratory 34 H 25 H 25 H Rate Blood Pressure 94/73 98/72 O2 Sat by Pulse 91 100 98 Oximetry 07/05/19 07/05/19 07/05/19 05:00 05:30 06:00 Temperature Pulse Rate 104 H 86 77 Pulse Rate [ Apical] Pulse Rate [ Left Dorsalis Pedis] Pulse Rate [ Right Dorsalis Pedis] Respiratory 19 25 H 21 Rate Blood Pressure 110/86 105/81 95/68 O2 Sat by Pulse 94 Oximetry 07/05/19 07/05/19 08:00 10:17 Temperature 97.9 F Pulse Rate Pulse Rate [ Apical] Pulse Rate [ Left Dorsalis Pedis] Pulse Rate [ Right Dorsalis Pedis] Respiratory Rate Blood Pressure O2 Sat by Pulse 99 Oximetry Constitutional: alert, other (middle aged AAF, normocephalic with mildly increased respiratory effort at rest) Eyes: non-icteric ENT: oropharynx moist, other (mallampati 3) Neck: supple, no lymphadenopathy, no JVD Effort: mildly labored Ascultation: Bilateral: rales (bases bilaterally) Percussion: Bilateral: not dull Cardiovascular: regular rate and rhythm, other (No R/M) Gastrointestinal: normoactive bowel sounds, soft, non-tender, non-distended Integumentary: normal Extremities: no cyanosis, no edema, pulses normal, no ischemia or petechiae Neurologic: normal mental status, non-focal exam, pupils equal and round, CN II- XII normal, motor strength normal and Psychiatric: anxious CBC and BMP: 07/04/19 04:02 07/05/19 13:01 ABG, PT/INR, D-dimer: ABG POC ABG pH 7.246 (7.35-7.45) L 07/03/19 23:02 ABG pH 7.398 pH Units (7.350-7.450) 07/04/19 06:30 POC ABG pCO2 30.4 (35-45) L 07/03/19 23:02 ABG pCO2 26.1 mm Hg 07/04/19 06:30 POC ABG pO2 75 (80-105) L 07/03/19 23:02 ABG pO2 141.7 mm Hg (80.0-90.0) H 07/04/19 06:30 POC ABG HCO3 13.2 (22-26 mml/L) 07/03/19 23:02 POC ABG Total CO2 14 (23-27mmol/L) 07/03/19 23:02 POC ABG O2 Sat 92 07/03/19 23:02 ABG O2 Saturation 98.8 % (95.0-99.0) 07/04/19 06:30 Abnormal lab findings: Abnormal Labs 07/03/19 07/03/19 07/03/19 17:54 17:54 17:54 WBC 12.6 H Hgb 15.4 H Hct 46.0 H MCV 99 H MCH 33 H MCHC Lymph % (Auto) 7.9 L Lymph # 1.0 L Seg Neutrophils % 86.6 H Seg Neutrophils # 11.0 H POC ABG pH POC ABG pCO2 POC ABG pO2 ABG pO2 ABG HCO3 ABG Base Excess VBG pH Carbon Dioxide 16 L BUN Glucose 210 H Lactic Acid 7.90 H* AST 226 H ALT 272 H C-Reactive Protein NT-Pro-B Natriuret Pep Total Protein 07/03/19 07/03/19 07/03/19 17:59 18:41 19:15 WBC Hgb Hct MCV MCH MCHC Lymph % (Auto) Lymph # Seg Neutrophils % Seg Neutrophils # POC ABG pH 7.305 L POC ABG pCO2 POC ABG pO2 77 L ABG pO2 ABG HCO3 ABG Base Excess VBG pH 7.174 L* Carbon Dioxide BUN Glucose Lactic Acid 6.90 H* AST ALT C-Reactive Protein NT-Pro-B Natriuret Pep Total Protein 07/03/19 07/03/19 07/03/19 20:37 20:37 21:51 WBC Hgb Hct MCV MCH MCHC Lymph % (Auto) Lymph # Seg Neutrophils % Seg Neutrophils # POC ABG pH POC ABG pCO2 POC ABG pO2 ABG pO2 ABG HCO3 ABG Base Excess VBG pH Carbon Dioxide BUN Glucose Lactic Acid 6.50 H* 5.80 H* AST 257 H ALT 283 H C-Reactive Protein NT-Pro-B Natriuret Pep Total Protein 8.3 H 07/03/19 07/04/19 07/04/19 23:02 00:46 04:02 WBC 15.2 H Hgb 16.6 H Hct 47.9 H MCV MCH 34 H MCHC 35 H Lymph % (Auto) 7.1 L Lymph # 1.1 L Seg Neutrophils % 88.6 H Seg Neutrophils # 13.5 H POC ABG pH 7.246 L POC ABG pCO2 30.4 L POC ABG pO2 75 L ABG pO2 ABG HCO3 ABG Base Excess VBG pH Carbon Dioxide BUN Glucose Lactic Acid 8.00 H* AST ALT C-Reactive Protein NT-Pro-B Natriuret Pep Total Protein 07/04/19 07/04/19 07/04/19 04:02 06:30 07:52 WBC Hgb Hct MCV MCH MCHC Lymph % (Auto) Lymph # Seg Neutrophils % Seg Neutrophils # POC ABG pH POC ABG pCO2 POC ABG pO2 ABG pO2 141.7 H ABG HCO3 15.7 L ABG Base Excess -7.1 L VBG pH Carbon Dioxide 17 L BUN 18 H Glucose 138 H Lactic Acid 4.10 H* AST 137 H ALT 224 H C-Reactive Protein NT-Pro-B Natriuret Pep Total Protein 07/04/19 07/04/19 07/04/19 08:52 08:52 08:52 WBC Hgb Hct MCV MCH MCHC Lymph % (Auto) Lymph # Seg Neutrophils % Seg Neutrophils # POC ABG pH POC ABG pCO2 POC ABG pO2 ABG pO2 ABG HCO3 ABG Base Excess VBG pH Carbon Dioxide BUN Glucose Lactic Acid 3.60 H* AST ALT C-Reactive Protein 4.80 H NT-Pro-B Natriuret Pep 74528 H Total Protein Chest x-ray: image reviewed (Improving bilateral pulmonary infiltrates) Allied health notes reviewed: nursing
--- NOTE | 2019-07-05 12:56 | XRay Report ---
CHEST 1 VIEW INDICATION / CLINICAL INFORMATION: hypoxemic respiratory failure. COMPARISON: 07/03/2019 FINDINGS: SUPPORT DEVICES: None. HEART / MEDIASTINUM: No significant abnormality. LUNGS / PLEURA: Nodular airspace disease in both upper lungs No pneumothorax. ADDITIONAL FINDINGS: No significant additional findings. IMPRESSION: Diffuse bilateral airspace and interstitial disease has significantly improved since 07/03/2019. Nodul ar densities persist in the upper lungs Signer Name: Adria Sky MD FACR Signed: 07/05/2019 12:52 PM Workstation Name: [id number]
[2019-07-05 13:43] LABS: Calcium 9.1 mg/dL (8.4-10.2)
[2019-07-05] MEDS ORDERED: ALPRAZolam 0.25 MG TAB PO PRN (14:00)
--- NOTE | 2019-07-05 14:33 | Consultation ---
History of Present Illness Consult date: 07/05/19 Consult reason: congestive heart failure History of present illness: This is a 54-year old woman with no prior medical history who presented 07/03 with worsening shortness of breath, admitted with respiratory distress and acute pulmonary edema. Further evaluation with an echocardiogram reveals a severely decreased left ventricular systolic function, ejection fraction 10-15%. A cardiac consultation has been requested. Patient is resting in bed comfortably and reports her breathing has improved since admission. She denies chest pain. An ECG is a normal sinus rhythm. A repeat chest x-ray reports interstitial edema is near resolution. Past History Past Medical History: other (Anxiety) Past Surgical History: hysterectomy Social history: single. denies: smoking, alcohol abuse, prescription drug abuse Family history: no significant family history (reviewed) Medications and Allergies Allergies Allergy/AdvReac Type Severity Reaction Status Date / Time No Known Allergies Allergy Unverified 07/03/19 17:38 Home Medications Medication Instructions Recorded Confirmed Last Taken Type No Known Home Medications [No 07/03/19 07/03/19 Unknown History Reported Home Medications] Active Meds: Active Medications Albuterol (Proventil) 2.5 mg IH Q3H PRN PRN Reason: Shortness Of Breath Alprazolam (Xanax) 0.25 mg PO TID PRN PRN Reason: Anxiety Enoxaparin Sodium (Lovenox) 40 mg SUB-Q QDAY [facility] Last Admin: 07/05/19 09:22 Dose: 40 mg Documented by: Famotidine (Pepcid) 20 mg PO DAILY [facility] Last Admin: 07/05/19 09:22 Dose: 20 mg Documented by: Furosemide (Lasix) 40 mg IV 0600,1800 [facility] Last Admin: 07/05/19 06:04 Dose: 40 mg Documented by: Sodium Chloride (Sodium Chloride Flush Syringe 10 Ml) 10 ml IV BID [facility] Last Admin: 07/05/19 09:24 Dose: 10 ml Documented by: Sodium Chloride (Sodium Chloride Flush Syringe 10 Ml) 10 ml IV PRN PRN PRN Reason: LINE FLUSH Last Admin: 07/05/19 09:23 Dose: 10 ml Documented by: Physical Examination Vital Signs Pulse Ox 88 07/03/19 17:32 General appearance: no acute distress HEENT: Positive: PERRL Neck: Positive: trachea midline Cardiac: Positive: Reg Rate and Rhythm Lungs: Positive: Decreased Breath Sounds Neuro: Positive: Grossly Intact Results 07/04/19 04:02 07/05/19 13:01 Comprehensive Metabolic Panel 07/05/19 Range/Units 13:01 Sodium 135 L (137-145) mmol/L Potassium 4.5 (3.6-5.0) mmol/L Chloride 96.1 L (98-107) mmol/L Carbon Dioxide 25 D (22-30) mmol/L BUN 28 H (7-17) mg/dL Creatinine 1.2 (0.7-1.2) mg/dL Glucose 90 (65-100) mg/dL Calcium 9.1 (8.4-10.2) mg/dL
--- NOTE | 2019-07-05 15:25 | Progress Note ---
Assessment and Plan /Acute hypoxic Respiratory failure Likely due to acute CHF exacerbation conr lasix, nebs, O2 as needed wean off o2 as tolerated, pulmonary following /New onset CHFeEF 10-15% CHF protocol: Chest x ray, IV lasix, supplemental oxygen, nebulizer therapy, pulse oximetry, cardiology consulted - will follow recommendation / SIRS (systemic inflammatory response syndrome) likely reactive, will stop abx follow cx / Elevated LFTs Hepatic panel ordered, rainer from hepatic congestion / gastroenteritis with n/v, resolved - PPI, supportive care / DVT prophylaxis SCD to BLE while in bed Disposition: transfer to [facility] today Subjective Date of service: 07/05/19 Principal diagnosis: Ac. hypoxemic resp failure; Ac. pulmonary edema; Acute CHF (New Onset) Interval history: Ptaient seen and examined On N/c - 4-5L family at bedside, updated Breathing much improved denies chest pain Objective - Exam Narrative Exam: General appearance: Present: no distress, well-nourished - EENT Eyes: PERRL, EOM intact ENT: hearing intact, clear oral mucosa Ears: bilateral: normal - Neck Neck: supple, normal ROM - Respiratory Respiratory effort: labored Respiratory: bilateral: diminished, rales, wheezing - Cardiovascular Rhythm: regular Heart Sounds: Present: S1 & S2. Absent: gallop, rub Extremities: pulses intact, No edema, normal color, Full ROM - Gastrointestinal General gastrointestinal: Present: soft, non-tender, non-distended, normal bowel sounds - Integumentary Integumentary: clear, warm, dry - Musculoskeletal Musculoskeletal: 1, strength equal bilaterally - Neurologic Neurologic: moves all extremities - Psychiatric Psychiatric: memory intact, appropriate mood/affect, intact judgment & insight - Constitutional Vitals: Vital Signs - 12hr 07/05/19 07/05/19 07/05/19 03:30 04:00 04:01 Temperature Pulse Rate 95 H 99 H Pulse Rate [ 120 H Apical] Pulse Rate [ 112 H Left Dorsalis Pedis] Pulse Rate [ 112 H Right Dorsalis Pedis] Respiratory 22 34 H 25 H Rate Blood Pressure 108/83 94/73 O2 Sat by Pulse 97 91 100 Oximetry 07/05/19 07/05/19 07/05/19 04:30 05:00 05:30 Temperature Pulse Rate 89 104 H 86 Pulse Rate [ Apical] Pulse Rate [ Left Dorsalis Pedis] Pulse Rate [ Right Dorsalis Pedis] Respiratory 25 H 19 25 H Rate Blood Pressure 98/72 110/86 105/81 O2 Sat by Pulse 98 94 Oximetry 07/05/19 07/05/19 07/05/19 06:00 08:00 10:17 Temperature 97.9 F Pulse Rate 77 Pulse Rate [ Apical] Pulse Rate [ Left Dorsalis Pedis] Pulse Rate [ Right Dorsalis Pedis] Respiratory 21 Rate Blood Pressure 95/68 O2 Sat by Pulse 99 Oximetry 07/05/19 11:59 Temperature 98.6 F Pulse Rate Pulse Rate [ Apical] Pulse Rate [ Left Dorsalis Pedis] Pulse Rate [ Right Dorsalis Pedis] Respiratory Rate Blood Pressure O2 Sat by Pulse Oximetry - Labs CBC & Chem 7: 07/04/19 04:02 07/05/19 13:01 Labs: Abnormal lab results 07/05/19 07/05/19 Range/Units 13:01 13:01 Sodium 135 L (137-145) mmol/L Chloride 96.1 L (98-107) mmol/L BUN 28 H (7-17) mg/dL Lactic Acid 2.40 H* (0.7-2.0) mmol/L
[2019-07-05] MEDS: carvediloL 3.125 MG TAB PO SCH (23:51)
[2019-07-06] MEDS: FUROSEMIDE 40 MG/4 ML INJ IV SCH ×2 (05:24→17:45)
--- NOTE | 2019-07-06 09:48 | Progress Note ---
<EMILIANO JENKINS - Last Filed: 07/06/19 09:45> Assessment and Plan Acute pulmonary edema Acute systolic heart failure echocardiogram revealed severe dilated cardiomyopathy, ejection fraction 10- 15%. Recommendations: Continue medical management of acute pulmonary edema and congestive heart failure as tolerated. Further cardiac evaluation with a right and left cardiac cath will be done tomorrow. Subjective Date of service: 07/06/19 Principal diagnosis: Ac. hypoxemic resp failure; Ac. pulmonary edema; Acute CHF (New Onset) Interval history: Patient is resting in bed comfortably. No distress noted. No events reported on telemetry monitoring. Objective Vital Signs Temp Pulse Resp BP Pulse Ox 07/06/19 03:36 98.4 F 71 22 107/65 78 L 07/05/19 23:51 70 93/54 07/05/19 22:50 98.5 F 70 18 92/61 98 07/05/19 22:00 71 22 07/05/19 21:27 99.6 F 74 18 93/54 98 07/05/19 20:30 93 H 22 95/70 96 07/05/19 20:00 98.1 F 103 H 18 86/61 97 07/05/19 19:59 98 07/05/19 19:30 93 H 21 102/67 96 07/05/19 19:00 110 H 21 101/73 95 07/05/19 18:30 96 H 17 104/81 95 07/05/19 18:01 88 22 101/65 71 L 07/05/19 17:30 81 19 98/67 96 07/05/19 17:00 69 16 101/65 95 07/05/19 16:30 70 20 86/61 92 07/05/19 16:00 98.0 F 82 14 114/75 94 07/05/19 15:30 77 22 98/70 07/05/19 15:00 98 H 19 93/69 95 07/05/19 14:30 93 H 22 88/65 94 07/05/19 14:00 91 H 21 96/66 98 07/05/19 13:30 107 H 20 106/68 94 07/05/19 13:00 90 21 101/77 96 07/05/19 12:30 83 13 102/70 96 07/05/19 12:00 76 24 96/73 97 07/05/19 11:59 98.6 F 07/05/19 11:30 86 19 93/73 98 07/05/19 11:00 83 21 103/76 07/05/19 10:30 78 25 H 95/68 97 07/05/19 10:17 99 07/05/19 10:00 85 24 92/72 95 - Physical Examination General: No Apparent Distress HEENT: Positive: PERRL Neck: Positive: trachea midline Cardiac: Positive: Reg Rate and Rhythm Lungs: Positive: Decreased Breath Sounds Neuro: Positive: Grossly Intact - Labs and Meds Comprehensive Metabolic Panel 07/05/19 Range/Units 13:01 Sodium 135 L (137-145) mmol/L Potassium 4.5 (3.6-5.0) mmol/L Chloride 96.1 L (98-107) mmol/L Carbon Dioxide 25 D (22-30) mmol/L BUN 28 H (7-17) mg/dL Creatinine 1.2 (0.7-1.2) mg/dL Glucose 90 (65-100) mg/dL Calcium 9.1 (8.4-10.2) mg/dL - Allied health notes Allied health notes reviewed: nursing <THEODORE DON - Last Filed: 07/06/19 10:44> Assessment and Plan I've seen and evaluated the patient and agree with the assessment and plan. Mr. Mosley is a 54-year-old female presenting with new onset severe dilated cardiomyopathy with ejection fraction 10-15%. At this time recommend continuing goal-directed medical therapy and gentle diuresis for treatment of congestive heart failure and severe dilated cardiomyopathy. Given the patient's ejection fraction is 10-15%, the patient should have a right and left heart cath for further evaluation. We'll plan for right and left heart catheterization tomorrow. I've discussed this with the patient who is agreeable. Objective Vital Signs Temp Pulse Resp BP Pulse Ox 07/06/19 03:36 98.4 F 71 22 107/65 78 L 07/05/19 23:51 70 93/54 07/05/19 22:50 98.5 F 70 18 92/61 98 07/05/19 22:00 71 22 07/05/19 21:27 99.6 F 74 18 93/54 98 07/05/19 20:30 93 H 22 95/70 96 07/05/19 20:00 98.1 F 103 H 18 86/61 97 07/05/19 19:59 98 07/05/19 19:30 93 H 21 102/67 96 07/05/19 19:00 110 H 21 101/73 95 07/05/19 18:30 96 H 17 104/81 95 07/05/19 18:01 88 22 101/65 71 L 07/05/19 17:30 81 19 98/67 96 07/05/19 17:00 69 16 101/65 95 07/05/19 16:30 70 20 86/61 92 07/05/19 16:00 98.0 F 82 14 114/75 94 07/05/19 15:30 77 22 98/70 07/05/19 15:00 98 H 19 93/69 95 07/05/19 14:30 93 H 22 88/65 94 07/05/19 14:00 91 H 21 96/66 98 07/05/19 13:30 107 H 20 106/68 94 07/05/19 13:00 90 21 101/77 96 07/05/19 12:30 83 13 102/70 96 07/05/19 12:00 76 24 96/73 97 07/05/19 11:59 98.6 F 07/05/19 11:30 86 19 93/73 98 07/05/19 11:00 83 21 103/76 - Labs and Meds Comprehensive Metabolic Panel 07/05/19 Range/Units 13:01 Sodium 135 L (137-145) mmol/L Potassium 4.5 (3.6-5.0) mmol/L Chloride 96.1 L (98-107) mmol/L Carbon Dioxide 25 D (22-30) mmol/L BUN 28 H (7-17) mg/dL Creatinine 1.2 (0.7-1.2) mg/dL Glucose 90 (65-100) mg/dL Calcium 9.1 (8.4-10.2) mg/dL
[2019-07-06] MEDS: ENOXAPARIN 40 MG/0.4 ML INJ SUB-Q SCH (10:53)
[2019-07-06] MEDS: FAMOTIDINE 20 MG TAB PO SCH (10:53)
[2019-07-06] MEDS: ASPIRIN 325 MG TAB PO SCH (10:53)
[2019-07-06] MEDS: LISINOPRIL 5 MG TAB PO SCH (10:54)
[2019-07-06] MEDS: carvediloL 3.125 MG TAB PO SCH ×2 (10:54→21:29)
--- NOTE | 2019-07-06 13:42 | Progress Note ---
Assessment and Plan /Acute hypoxic Respiratory failure Likely due to acute CHF exacerbation conr lasix, nebs, O2 as needed wean off o2 as tolerated, pulmonary following /New onset CHFeEF 10-15% CHF protocol: Chest x ray, IV lasix, supplemental oxygen, nebulizer therapy, pulse oximetry, cardiology consulted - plan for cardiac cath tomorrow / SIRS (systemic inflammatory response syndrome) likely reactive, will stop abx follow cx / Elevated LFTs Hepatic panel ordered, likely from hepatic congestion / gastroenteritis with n/v, resolved - PPI, supportive care / DVT prophylaxis SCD to BLE while in bed Disposition: home with when medically stable Subjective Date of service: 07/06/19 Principal diagnosis: Ac. hypoxemic resp failure; Ac. pulmonary edema; Acute CHF (New Onset) Interval history: Ptaient seen and examined On N/c - 3L, patient is resting family at bedside, updated Breathing much improved denies chest pain Objective - Exam Narrative Exam: General appearance: Present: no distress, well-nourished - EENT Eyes: PERRL, EOM intact ENT: hearing intact, clear oral mucosa Ears: bilateral: normal - Neck Neck: supple, normal ROM - Respiratory Respiratory effort: labored Respiratory: bilateral: diminished, rales, wheezing - Cardiovascular Rhythm: regular Heart Sounds: Present: S1 & S2. Absent: gallop, rub Extremities: pulses intact, No edema, normal color, Full ROM - Gastrointestinal General gastrointestinal: Present: soft, non-tender, non-distended, normal bowel sounds - Integumentary Integumentary: clear, warm, dry - Musculoskeletal Musculoskeletal: 1, strength equal bilaterally - Neurologic Neurologic: moves all extremities - Psychiatric Psychiatric: memory intact, appropriate mood/affect, intact judgment & insight - Constitutional Vitals: Vital Signs - 12hr 07/06/19 07/06/19 07/06/19 03:36 10:00 11:15 Temperature 98.4 F Pulse Rate 71 68 Respiratory 22 Rate Blood Pressure 107/65 O2 Sat by Pulse 78 L 99 Oximetry - Labs CBC & Chem 7: 07/07/19 04:32 07/07/19 04:32 Labs: Abnormal lab results 07/05/19 07/05/19 07/05/19 Range/Units 13:01 13:01 14:49 Sodium 135 L (137-145) mmol/L Chloride 96.1 L (98-107) mmol/L BUN 28 H (7-17) mg/dL Lactic Acid 2.40 H* 3.10 H* (0.7-2.0) mmol/L
--- NOTE | 2019-07-06 17:25 | Progress Note ---
Assessment and Plan Patient alert, awake, and weak. Resting on 2L O2. O2 saturation 99%. No acute respiratory distress. BIPAP standby in the room. Patient afebrile, has leukocytosis. Patient denies history of asthma. Patient diagnosed with CHF. Patient denies smoking history, alcohol abuse, drug abuse. Patient says she is single, has 2 children. 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 - Patient Problems (1) Respiratory failure Current Visit: Yes Status: Acute Qualifiers: Chronicity: acute Respiratory failure complication: hypoxia Qualified Code(s): J96.01 - Acute respiratory failure with hypoxia Plan to address problem: Likely from CHF. It is improving. Patient resting on 2L O2 NC. O2 saturation 99%. BIPAP standby in the room. Albuterol aerosol treatment s q 6 hrs PRN for shortness of breath. Continue S/C Lovenox. Continue Famotidine. (2) SOB (shortness of breath) Current Visit: Yes Status: Acute Plan to address problem: Likely from CHF. It is improving. Patient resting on 2L O2 NC. O2 saturation 99%. (3) Congestive heart failure (CHF) Current Visit: Yes Status: Acute Plan to address problem: Management as per cardiology. Subjective Date of service: 07/06/19 Principal diagnosis: Ac. hypoxemic resp failure; Ac. pulmonary edema; Acute CHF (New Onset) Interval history: Patient alert, awake, and weak. Resting on 2L O2. O2 saturation 99%. No acute respiratory distress. BIPAP standby in the room. Patient afebrile, has leukocytosis. Patient denies history of asthma. Patient diagnosed with CHF. Patient denies smoking history, alcohol abuse, drug abuse. Patient says she is single, has 2 children. 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 Objective Vital Signs - 12hr 07/06/19 07/06/19 10:00 11:15 Pulse Rate 68 O2 Sat by Pulse 99 Oximetry Constitutional: no acute distress, alert, other (middle aged AAF, normocephalic with mildly increased respiratory effort at rest) Eyes: non-icteric ENT: oropharynx moist, other (mallampati 3) Neck: supple, no lymphadenopathy, no JVD Effort: mildly labored Ascultation: Bilateral: rales (bases bilaterally) Percussion: Bilateral: not dull Cardiovascular: regular rate and rhythm, other (No R/M) Gastrointestinal: normoactive bowel sounds, soft, non-tender, non-distended Integumentary: normal Extremities: no cyanosis, no edema, pulses normal, no ischemia or petechiae Neurologic: normal mental status, non-focal exam, pupils equal and round, CN II- XII normal, motor strength normal and Psychiatric: anxious CBC and BMP: 07/04/19 04:02 07/05/19 13:01 ABG, PT/INR, D-dimer: ABG POC ABG pH 7.246 (7.35-7.45) L 07/03/19 23:02 ABG pH 7.398 pH Units (7.350-7.450) 07/04/19 06:30 POC ABG pCO2 30.4 (35-45) L 07/03/19 23:02 ABG pCO2 26.1 mm Hg 07/04/19 06:30 POC ABG pO2 75 (80-105) L 07/03/19 23:02 ABG pO2 141.7 mm Hg (80.0-90.0) H 07/04/19 06:30 POC ABG HCO3 13.2 (22-26 mml/L) 07/03/19 23:02 POC ABG Total CO2 14 (23-27mmol/L) 07/03/19 23:02 POC ABG O2 Sat 92 07/03/19 23:02 ABG O2 Saturation 98.8 % (95.0-99.0) 07/04/19 06:30 Abnormal lab findings: Abnormal Labs 07/03/19 07/03/19 07/03/19 17:54 17:54 17:54 WBC 12.6 H Hgb 15.4 H Hct 46.0 H MCV 99 H MCH 33 H MCHC Lymph % (Auto) 7.9 L Lymph # 1.0 L Seg Neutrophils % 86.6 H Seg Neutrophils # 11.0 H POC ABG pH POC ABG pCO2 POC ABG pO2 ABG pO2 ABG HCO3 ABG Base Excess VBG pH Sodium Chloride Carbon Dioxide 16 L BUN Glucose 210 H Lactic Acid 7.90 H* AST 226 H ALT 272 H C-Reactive Protein NT-Pro-B Natriuret Pep Total Protein 07/03/19 07/03/19 07/03/19 17:59 18:41 19:15 WBC Hgb Hct MCV MCH MCHC Lymph % (Auto) Lymph # Seg Neutrophils % Seg Neutrophils # POC ABG pH 7.305 L POC ABG pCO2 POC ABG pO2 77 L ABG pO2 ABG HCO3 ABG Base Excess VBG pH 7.174 L* Sodium Chloride Carbon Dioxide BUN Glucose Lactic Acid 6.90 H* AST ALT C-Reactive Protein NT-Pro-B Natriuret Pep Total Protein 07/03/19 07/03/19 07/03/19 20:37 20:37 21:51 WBC Hgb Hct MCV MCH MCHC Lymph % (Auto) Lymph # Seg Neutrophils % Seg Neutrophils # POC ABG pH POC ABG pCO2 POC ABG pO2 ABG pO2 ABG HCO3 ABG Base Excess VBG pH Sodium Chloride Carbon Dioxide BUN Glucose Lactic Acid 6.50 H* 5.80 H* AST 257 H ALT 283 H C-Reactive Protein NT-Pro-B Natriuret Pep Total Protein 8.3 H 07/03/19 07/04/19 07/04/19 23:02 00:46 04:02 WBC 15.2 H Hgb 16.6 H Hct 47.9 H MCV MCH 34 H MCHC 35 H Lymph % (Auto) 7.1 L Lymph # 1.1 L Seg Neutrophils % 88.6 H Seg Neutrophils # 13.5 H POC ABG pH 7.246 L POC ABG pCO2 30.4 L POC ABG pO2 75 L ABG pO2 ABG HCO3 ABG Base Excess VBG pH Sodium Chloride Carbon Dioxide BUN Glucose Lactic Acid 8.00 H* AST ALT C-Reactive Protein NT-Pro-B Natriuret Pep Total Protein 07/04/19 07/04/19 07/04/19 04:02 06:30 07:52 WBC Hgb Hct MCV MCH MCHC Lymph % (Auto) Lymph # Seg Neutrophils % Seg Neutrophils # POC ABG pH POC ABG pCO2 POC ABG pO2 ABG pO2 141.7 H ABG HCO3 15.7 L ABG Base Excess -7.1 L VBG pH Sodium Chloride Carbon Dioxide 17 L BUN 18 H Glucose 138 H Lactic Acid 4.10 H* AST 137 H ALT 224 H C-Reactive Protein NT-Pro-B Natriuret Pep Total Protein 07/04/19 07/04/19 07/04/19 08:52 08:52 08:52 WBC Hgb Hct MCV MCH MCHC Lymph % (Auto) Lymph # Seg Neutrophils % Seg Neutrophils # POC ABG pH POC ABG pCO2 POC ABG pO2 ABG pO2 ABG HCO3 ABG Base Excess VBG pH Sodium Chloride Carbon Dioxide BUN Glucose Lactic Acid 3.60 H* AST ALT C-Reactive Protein 4.80 H NT-Pro-B Natriuret Pep 43095 H Total Protein 07/05/19 07/05/19 07/05/19 13:01 13:01 14:49 WBC Hgb Hct MCV MCH MCHC Lymph % (Auto) Lymph # Seg Neutrophils % Seg Neutrophils # POC ABG pH POC ABG pCO2 POC ABG pO2 ABG pO2 ABG HCO3 ABG Base Excess VBG pH Sodium 135 L Chloride 96.1 L Carbon Dioxide BUN 28 H Glucose Lactic Acid 2.40 H* 3.10 H* AST ALT C-Reactive Protein NT-Pro-B Natriuret Pep Total Protein Chest x-ray: report reviewed, image reviewed CT scan - chest: report reviewed, image reviewed Additional Studies: CXR 07/05/19 IMPRESSION: Diffuse bilateral airspace and interstitial disease has significantly improved since 07/03/2019. Nodular densities persist in the upper lungs CTA Chest 07/03/19 IMPRESSION: 1. No evidence of pulmonary embolus. 2. Extensive bilateral pulmonary parenchymal disease characterized by interstitial opacity and groundglass densities. 3. Small bilateral pleural effusions. CXR 07/03/19 IMPRESSION: 1. Diffuse interstitial and patchy bilateral airspace opacities 2. Possible nodularity in the left upper lobe. Allied health notes reviewed: nursing
[2019-07-07 05:28] LABS: Basophils % (Auto) 0.3 % (0.0-1.8); Eosinophils # (Auto) 0.1 K/mm3 (0.0-0.4); Eosinophils % (Auto) 1.8 % (0.0-4.3); Hematocrit 39.9 % (30.3-42.9); Hemoglobin 13.8 gm/dl (10.1-14.3); Lymphocytes # (Auto) 3.1 K/mm3 (1.2-5.4); Lymphocytes % (Auto) 40.4 % (13.4-35.0); Mean Corpuscular HGB Conc 35 % (30-34); Mean Corpuscular Volume 97 fl (79-97); Monocytes # (Auto) 0.5 K/mm3 (0.0-0.8); Monocytes % (Auto) 6.1 % (0.0-7.3); Platelet Count 154 K/mm3 (140-440); Red Blood Count 4.13 M/mm3 (3.65-5.03); Red Cell Distribution Width 13.1 % (13.2-15.2)
[2019-07-07 05:36] LABS: INR 4.42 (0.87-1.13)
[2019-07-07 05:46] LABS: Calcium 8.7 mg/dL (8.4-10.2)
[2019-07-07] MEDS: FUROSEMIDE 40 MG/4 ML INJ IV SCH ×2 (05:53→19:12)
--- NOTE | 2019-07-07 09:52 | Progress Note ---
Assessment and Plan Acute pulmonary edema Acute systolic heart failure echocardiogram revealed severe dilated cardiomyopathy, ejection fraction 10- 15%. Supra-therapeutic INR Elevated liver transaminase Recommendations: Recheck PT/INR Continue medical management for congestive heart failure as tolerated. Lexiscan thallium test will be done before discharge. Subjective Date of service: 07/07/19 Principal diagnosis: Ac. hypoxemic resp failure; Ac. pulmonary edema; Acute CHF (New Onset) Interval history: Cardiac cath cancelled due to supra therapeutic INR of 4.4. Objective Vital Signs Temp Pulse Resp BP Pulse Ox 07/07/19 07:38 98.2 F 81 18 108/77 100 07/07/19 05:32 20 98 07/07/19 03:52 98.0 F 69 12 98/65 80 L 07/07/19 03:49 80 19 104/77 99 07/06/19 23:32 98.5 F 74 16 104/77 99 07/06/19 22:00 74 22 07/06/19 21:29 76 103/58 07/06/19 20:19 98.5 F 70 16 103/58 100 07/06/19 18:46 98.0 F 102/68 07/06/19 11:15 99 07/06/19 10:00 68 - Physical Examination General: No Apparent Distress HEENT: Positive: PERRL Neck: Positive: trachea midline Cardiac: Positive: Reg Rate and Rhythm Lungs: Positive: Decreased Breath Sounds Neuro: Positive: Grossly Intact Extremities: Absent: edema - Labs and Meds Coagulation 07/07/19 Range/Units 04:32 PT 41.6 H (12.2-14.9) Sec. INR 4.42 H (0.87-1.13) CBC 07/07/19 Range/Units 04:32 WBC 7.8 (4.5-11.0) K/mm3 RBC 4.13 (3.65-5.03) M/mm3 Hgb 13.8 (10.1-14.3) gm/dl Hct 39.9 (30.3-42.9) % Plt Count 154 (140-440) K/mm3 Lymph # 3.1 (1.2-5.4) K/mm3 Terrell # 0.5 (0.0-0.8) K/mm3 Eos # 0.1 (0.0-0.4) K/mm3 Baso # 0.0 (0.0-0.1) K/mm3 Comprehensive Metabolic Panel 07/07/19 Range/Units 04:32 Sodium 135 L (137-145) mmol/L Potassium 3.2 L D (3.6-5.0) mmol/L Chloride 94.5 L (98-107) mmol/L Carbon Dioxide 27 (22-30) mmol/L BUN 29 H (7-17) mg/dL Creatinine 1.2 (0.7-1.2) mg/dL Glucose 107 H (65-100) mg/dL Calcium 8.7 (8.4-10.2) mg/dL - Allied health notes Allied health notes reviewed: nursing
[2019-07-07] MEDS ORDERED: POTASSIUM CHLORIDE ER 20 MEQ TAB PO NR (10:30)
[2019-07-07 10:31] LABS: INR 1.01 (0.87-1.13)
[2019-07-07] MEDS: ASPIRIN 325 MG TAB PO SCH (11:14)
[2019-07-07] MEDS: SPIRONOLACTONE 25 MG TAB PO SCH (11:15)
[2019-07-07] MEDS: carvediloL 3.125 MG TAB PO SCH ×2 (11:17→22:14)
[2019-07-07] MEDS: FAMOTIDINE 20 MG TAB PO SCH (11:18)
[2019-07-07] MEDS: ENOXAPARIN 40 MG/0.4 ML INJ SUB-Q SCH (11:22)
[2019-07-07] MEDS: LISINOPRIL 5 MG TAB PO SCH (11:46)
--- NOTE | 2019-07-07 12:20 | Progress Note ---
Assessment and Plan Acute hypoxemic respiratory failure Acute pulmonary edema. Acute congestive heart failure exacerbation (new onset) Leukocytosis. Tobacco use disorder. Metabolic acidosis, mild. Lactic acidosis. Elevated serum transaminases. Possible occult pneumonia. History of anxiety. - repeat Lactic acid level - repeat CXR - continue prn xanax for anxiolysis - continue to wean supplemental oxygen to keep O2 sat's > 90% - change BIPAP to prn at this point - continue diuresis - prn bronchodilators - heart failure evaluation per cardiology - follow clinically off AB's - GI & VTE prophylaxis - continue other care per attending / other consultants .... re-evaluate in am & prn Subjective Date of service: 07/07/19 Principal diagnosis: Ac. hypoxemic resp failure; Ac. pulmonary edema; Acute CHF (New Onset) Interval history: Patient is seen today for: Acute hypoxemic respiratory failure; Acute pulmonary edema; Acute CHF exacerbation (new onset); Leukocytosis; Tobacco use disorder; Metabolic acidosis, mild; Lactic acidosis; Elevated serum transaminases; Possible occult pneumonia; History of anxiety. Seen and examined at bedside; 24hour events reviewed; nursing and respiratory care staff consulted; no adverse overnight events reported to me; resting peacefully in bed; Objective Vital Signs - 12hr 07/07/19 07/07/19 07/07/19 03:49 03:52 05:32 Temperature 98.0 F Pulse Rate 80 69 Respiratory 19 12 20 Rate Blood Pressure 104/77 98/65 O2 Sat by Pulse 99 80 L 98 Oximetry 07/07/19 07/07/19 07/07/19 07:38 11:15 11:17 Temperature 98.2 F Pulse Rate 81 76 72 Respiratory 18 Rate Blood Pressure 108/77 108/77 108/77 O2 Sat by Pulse 100 Oximetry 07/07/19 07/07/19 11:46 11:54 Temperature 98.1 F Pulse Rate 72 77 Respiratory 20 Rate Blood Pressure 108/77 130/87 O2 Sat by Pulse 100 Oximetry Constitutional: no acute distress, alert, other (middle aged AAF, normocephalic with mildly increased respiratory effort at rest) Eyes: non-icteric ENT: oropharynx moist, other (mallampati 3) Neck: supple, no lymphadenopathy, no JVD Effort: mildly labored Ascultation: Bilateral: rales (bases bilaterally) Percussion: Bilateral: not dull Cardiovascular: regular rate and rhythm, other (No R/M) Gastrointestinal: normoactive bowel sounds, soft, non-tender, non-distended Integumentary: normal Extremities: no cyanosis, no edema, pulses normal, no ischemia or petechiae Neurologic: normal mental status, non-focal exam, pupils equal and round, CN II- XII normal, motor strength normal and Psychiatric: anxious CBC and BMP: 07/11/19 07:30 07/11/19 07:30 ABG, PT/INR, D-dimer: ABG POC ABG pH 7.246 (7.35-7.45) L 07/03/19 23:02 ABG pH 7.398 pH Units (7.350-7.450) 07/04/19 06:30 POC ABG pCO2 30.4 (35-45) L 07/03/19 23:02 ABG pCO2 26.1 mm Hg 07/04/19 06:30 POC ABG pO2 75 (80-105) L 07/03/19 23:02 ABG pO2 141.7 mm Hg (80.0-90.0) H 07/04/19 06:30 POC ABG HCO3 13.2 (22-26 mml/L) 07/03/19 23:02 POC ABG Total CO2 14 (23-27mmol/L) 07/03/19 23:02 POC ABG O2 Sat 92 07/03/19 23:02 ABG O2 Saturation 98.8 % (95.0-99.0) 07/04/19 06:30 PT/INR, D-dimer PT 13.0 Sec. (12.2-14.9) 07/07/19 09:49 INR 1.01 (0.87-1.13) 07/07/19 09:49 Abnormal lab findings: Abnormal Labs 07/03/19 07/03/19 07/03/19 17:54 17:54 17:54 WBC 12.6 H Hgb 15.4 H Hct 46.0 H MCV 99 H MCH 33 H MCHC RDW Lymph % (Auto) 7.9 L Lymph # 1.0 L Seg Neutrophils % 86.6 H Seg Neutrophils # 11.0 H PT INR POC ABG pH POC ABG pCO2 POC ABG pO2 ABG pO2 ABG HCO3 ABG Base Excess VBG pH Sodium Potassium Chloride Carbon Dioxide 16 L BUN Glucose 210 H Lactic Acid 7.90 H* AST 226 H ALT 272 H C-Reactive Protein NT-Pro-B Natriuret Pep Total Protein 07/03/19 07/03/19 07/03/19 17:59 18:41 19:15 WBC Hgb Hct MCV MCH MCHC RDW Lymph % (Auto) Lymph # Seg Neutrophils % Seg Neutrophils # PT INR POC ABG pH 7.305 L POC ABG pCO2 POC ABG pO2 77 L ABG pO2 ABG HCO3 ABG Base Excess VBG pH 7.174 L* Sodium Potassium Chloride Carbon Dioxide BUN Glucose Lactic Acid 6.90 H* AST ALT C-Reactive Protein NT-Pro-B Natriuret Pep Total Protein 07/03/19 07/03/19 07/03/19 20:37 20:37 21:51 WBC Hgb Hct MCV MCH MCHC RDW Lymph % (Auto) Lymph # Seg Neutrophils % Seg Neutrophils # PT INR POC ABG pH POC ABG pCO2 POC ABG pO2 ABG pO2 ABG HCO3 ABG Base Excess VBG pH Sodium Potassium Chloride Carbon Dioxide BUN Glucose Lactic Acid 6.50 H* 5.80 H* AST 257 H ALT 283 H C-Reactive Protein NT-Pro-B Natriuret Pep Total Protein 8.3 H 07/03/19 07/04/19 07/04/19 23:02 00:46 04:02 WBC 15.2 H Hgb 16.6 H Hct 47.9 H MCV MCH 34 H MCHC 35 H RDW Lymph % (Auto) 7.1 L Lymph # 1.1 L Seg Neutrophils % 88.6 H Seg Neutrophils # 13.5 H PT INR POC ABG pH 7.246 L POC ABG pCO2 30.4 L POC ABG pO2 75 L ABG pO2 ABG HCO3 ABG Base Excess VBG pH Sodium Potassium Chloride Carbon Dioxide BUN Glucose Lactic Acid 8.00 H* AST ALT C-Reactive Protein NT-Pro-B Natriuret Pep Total Protein 07/04/19 07/04/19 07/04/19 04:02 06:30 07:52 WBC Hgb Hct MCV MCH MCHC RDW Lymph % (Auto) Lymph # Seg Neutrophils % Seg Neutrophils # PT INR POC ABG pH POC ABG pCO2 POC ABG pO2 ABG pO2 141.7 H ABG HCO3 15.7 L ABG Base Excess -7.1 L VBG pH Sodium Potassium Chloride Carbon Dioxide 17 L BUN 18 H Glucose 138 H Lactic Acid 4.10 H* AST 137 H ALT 224 H C-Reactive Protein NT-Pro-B Natriuret Pep Total Protein 07/04/19 07/04/19 07/04/19 08:52 08:52 08:52 WBC Hgb Hct MCV MCH MCHC RDW Lymph % (Auto) Lymph # Seg Neutrophils % Seg Neutrophils # PT INR POC ABG pH POC ABG pCO2 POC ABG pO2 ABG pO2 ABG HCO3 ABG Base Excess VBG pH Sodium Potassium Chloride Carbon Dioxide BUN Glucose Lactic Acid 3.60 H* AST ALT C-Reactive Protein 4.80 H NT-Pro-B Natriuret Pep 18054 H Total Protein 07/05/19 07/05/19 07/05/19 13:01 13:01 14:49 WBC Hgb Hct MCV MCH MCHC RDW Lymph % (Auto) Lymph # Seg Neutrophils % Seg Neutrophils # PT INR POC ABG pH POC ABG pCO2 POC ABG pO2 ABG pO2 ABG HCO3 ABG Base Excess VBG pH Sodium 135 L Potassium Chloride 96.1 L Carbon Dioxide BUN 28 H Glucose Lactic Acid 2.40 H* 3.10 H* AST ALT C-Reactive Protein NT-Pro-B Natriuret Pep Total Protein 07/07/19 07/07/19 07/07/19 04:32 04:32 04:32 WBC Hgb Hct MCV MCH 34 H MCHC 35 H RDW 13.1 L Lymph % (Auto) 40.4 H Lymph # Seg Neutrophils % Seg Neutrophils # PT 41.6 H INR 4.42 H POC ABG pH POC ABG pCO2 POC ABG pO2 ABG pO2 ABG HCO3 ABG Base Excess VBG pH Sodium 135 L Potassium 3.2 L D Chloride 94.5 L Carbon Dioxide BUN 29 H Glucose 107 H Lactic Acid AST ALT C-Reactive Protein NT-Pro-B Natriuret Pep Total Protein Allied health notes reviewed: nursing
--- NOTE | 2019-07-07 13:21 | Progress Note ---
Assessment and Plan /Acute hypoxic Respiratory failure Likely due to acute CHF exacerbation conr lasix, nebs, O2 as needed wean off o2 as tolerated, pulmonary following /New onset CHFeEF 10-15% CHF protocol: Chest x ray, IV lasix, supplemental oxygen, nebulizer therapy, pulse oximetry, cardiology consulted - cardiac cath cancelled and plan for stress test tomorrow / SIRS (systemic inflammatory response syndrome) likely reactive, off abx, negative cx / Elevated LFTs - trended down Hepatic panel ordered, likely from hepatic congestion / gastroenteritis with n/v, resolved - PPI, supportive care / DVT prophylaxis SCD to BLE while in bed Disposition: home with HH when medically stable and when clears by cardiology Brief history: 54 y/o AAF presented with acute respiratory failure, wor up showed new onset CHF with Ef 10-15%. Planned for stress test tomorrow. Subjective Date of service: 07/07/19 Principal diagnosis: Ac. hypoxemic resp failure; Ac. pulmonary edema; Acute CHF (New Onset) Interval history: Ptaient seen and examined On N/c - 3L, patient is resting family at bedside, updated Breathing much improved had an episode of chest tightness today - occured while taking all pills together - EKG showed no ST elevation. symptom improved after taking ice water Objective - Exam Narrative Exam: General appearance: Present: no distress, well-nourished - EENT Eyes: PERRL, EOM intact ENT: hearing intact, clear oral mucosa Ears: bilateral: normal - Neck Neck: supple, normal ROM - Respiratory Respiratory effort: labored Respiratory: bilateral: diminished, rales, wheezing - Cardiovascular Rhythm: regular Heart Sounds: Present: S1 & S2. Absent: gallop, rub Extremities: pulses intact, No edema, normal color, Full ROM - Gastrointestinal General gastrointestinal: Present: soft, non-tender, non-distended, normal bowel sounds - Integumentary Integumentary: clear, warm, dry - Musculoskeletal Musculoskeletal: 1, strength equal bilaterally - Neurologic Neurologic: moves all extremities - Psychiatric Psychiatric: memory intact, appropriate mood/affect, intact judgment & insight - Constitutional Vitals: Vital Signs - 12hr 07/07/19 07/07/19 07/07/19 03:49 03:52 05:32 Temperature 98.0 F Pulse Rate 80 69 Respiratory 19 12 20 Rate Blood Pressure 104/77 98/65 O2 Sat by Pulse 99 80 L 98 Oximetry 07/07/19 07/07/19 07/07/19 07:38 10:00 11:15 Temperature 98.2 F Pulse Rate 81 66 76 Respiratory 18 Rate Blood Pressure 108/77 108/77 O2 Sat by Pulse 100 Oximetry 07/07/19 07/07/19 07/07/19 11:17 11:46 11:54 Temperature 98.1 F Pulse Rate 72 72 77 Respiratory 20 Rate Blood Pressure 108/77 108/77 130/87 O2 Sat by Pulse 100 Oximetry - Labs CBC & Chem 7: 07/07/19 04:32 07/07/19 04:32 Labs: Abnormal lab results 07/07/19 07/07/19 07/07/19 Range/Units 04:32 04:32 04:32 MCH 34 H (28-32) pg MCHC 35 H (30-34) % RDW 13.1 L (13.2-15.2) % Lymph % (Auto) 40.4 H (13.4-35.0) % PT 41.6 H (12.2-14.9) Sec. INR 4.42 H (0.87-1.13) Sodium 135 L (137-145) mmol/L Potassium 3.2 L D (3.6-5.0) mmol/L Chloride 94.5 L (98-107) mmol/L BUN 29 H (7-17) mg/dL Glucose 107 H (65-100) mg/dL
[2019-07-07] MEDS ORDERED: MORPHINE 2 MG/1 ML INJ IV PRN (14:30)
[2019-07-07] MEDS ORDERED: POTASSIUM CHLORIDE ER 20 MEQ TAB PO SCH (15:00)
[2019-07-07] MEDS: POLYETHYLENE GLYCOL 3350 17 GM POWDER PO SCH (22:18)
[2019-07-08 03:12] LABS: Chol/HDL Ratio 4.66 %
[2019-07-08] MEDS: FUROSEMIDE 40 MG/4 ML INJ IV SCH ×2 (05:20→18:01)
[2019-07-08 08:29] LABS: BUN/Creatinine Ratio 20; Blood Urea Nitrogen 22 mg/dL (7-17); Calcium 9.4 mg/dL (8.4-10.2); Hemolysis Index 35
[2019-07-08] MEDS ORDERED: REGADENOSON 0.4 MG/5 ML INJ IV ONE ×2 (09:11→09:24)
--- NOTE | 2019-07-08 09:22 | Progress Note ---
Assessment and Plan Acute hypoxemic respiratory failure Acute pulmonary edema. Acute congestive heart failure exacerbation (new onset) Leukocytosis. Tobacco use disorder. Metabolic acidosis, mild. Lactic acidosis. Elevated serum transaminases. Possible occult pneumonia. History of anxiety. -Follow up lexiscan when done -Smoking cessation counselling - continue prn xanax for anxiolysis - continue to wean supplemental oxygen to keep O2 sat's > 90% - continue BIPAP prn - continue diuresis, heart failure measures - prn bronchodilators - heart failure evaluation per cardiology - follow clinically off AB's - VTE prophylaxis Subjective Date of service: 07/08/19 Principal diagnosis: Ac. hypoxemic resp failure; Ac. pulmonary edema; Acute CHF (New Onset) Interval history: Patient is seen today for: Acute hypoxemic respiratory failure; Acute pulmonary edema; Acute CHF exacerbation (new onset); Leukocytosis; Tobacco use disorder; Metabolic acidosis, mild; Lactic acidosis; Elevated serum transaminases; Possible occult pneumonia; History of anxiety. Seen and examined at bedside; 24hour events reviewed; nursing and respiratory care staff consulted; no adverse overnight events reported to me; resting peacefully in bed; Objective Vital Signs - 12hr 07/07/19 07/07/19 07/08/19 22:14 23:20 01:50 Temperature 98.0 F Pulse Rate 71 66 75 Respiratory 16 12 Rate Blood Pressure 96/63 O2 Sat by Pulse 100 97 Oximetry 07/08/19 07/08/19 03:06 07:49 Temperature 97.9 F 97.9 F Pulse Rate 59 L 66 Respiratory 16 18 Rate Blood Pressure 114/79 100/66 O2 Sat by Pulse 98 100 Oximetry Constitutional: no acute distress, alert, other (middle aged AAF, normocephalic with mildly increased respiratory effort at rest) Eyes: non-icteric ENT: oropharynx moist, other (mallampati 3) Neck: supple, no lymphadenopathy, no JVD Effort: mildly labored Ascultation: Bilateral: rales (bases bilaterally) Percussion: Bilateral: not dull Cardiovascular: regular rate and rhythm, other (No R/M) Gastrointestinal: normoactive bowel sounds, soft, non-tender, non-distended Integumentary: normal Extremities: no cyanosis, no edema, pulses normal, no ischemia or petechiae Neurologic: normal mental status, non-focal exam, pupils equal and round, CN II- XII normal, motor strength normal and Psychiatric: anxious CBC and BMP: 07/07/19 04:32 07/08/19 07:25 ABG, PT/INR, D-dimer: ABG POC ABG pH 7.246 (7.35-7.45) L 07/03/19 23:02 ABG pH 7.398 pH Units (7.350-7.450) 07/04/19 06:30 POC ABG pCO2 30.4 (35-45) L 07/03/19 23:02 ABG pCO2 26.1 mm Hg 07/04/19 06:30 POC ABG pO2 75 (80-105) L 07/03/19 23:02 ABG pO2 141.7 mm Hg (80.0-90.0) H 07/04/19 06:30 POC ABG HCO3 13.2 (22-26 mml/L) 07/03/19 23:02 POC ABG Total CO2 14 (23-27mmol/L) 07/03/19 23:02 POC ABG O2 Sat 92 07/03/19 23:02 ABG O2 Saturation 98.8 % (95.0-99.0) 07/04/19 06:30 PT/INR, D-dimer PT 13.0 Sec. (12.2-14.9) 07/07/19 09:49 INR 1.01 (0.87-1.13) 07/07/19 09:49 Abnormal lab findings: Abnormal Labs 07/03/19 07/03/19 07/03/19 17:54 17:54 17:54 WBC 12.6 H Hgb 15.4 H Hct 46.0 H MCV 99 H MCH 33 H MCHC RDW Lymph % (Auto) 7.9 L Lymph # 1.0 L Seg Neutrophils % 86.6 H Seg Neutrophils # 11.0 H PT INR POC ABG pH POC ABG pCO2 POC ABG pO2 ABG pO2 ABG HCO3 ABG Base Excess VBG pH Sodium Potassium Chloride Carbon Dioxide 16 L BUN Glucose 210 H POC Glucose Lactic Acid 7.90 H* AST 226 H ALT 272 H Troponin T C-Reactive Protein NT-Pro-B Natriuret Pep Total Protein HDL Cholesterol 07/03/19 07/03/19 07/03/19 17:59 18:41 19:15 WBC Hgb Hct MCV MCH MCHC RDW Lymph % (Auto) Lymph # Seg Neutrophils % Seg Neutrophils # PT INR POC ABG pH 7.305 L POC ABG pCO2 POC ABG pO2 77 L ABG pO2 ABG HCO3 ABG Base Excess VBG pH 7.174 L* Sodium Potassium Chloride Carbon Dioxide BUN Glucose POC Glucose Lactic Acid 6.90 H* AST ALT Troponin T C-Reactive Protein NT-Pro-B Natriuret Pep Total Protein HDL Cholesterol 07/03/19 07/03/19 07/03/19 20:37 20:37 21:51 WBC Hgb Hct MCV MCH MCHC RDW Lymph % (Auto) Lymph # Seg Neutrophils % Seg Neutrophils # PT INR POC ABG pH POC ABG pCO2 POC ABG pO2 ABG pO2 ABG HCO3 ABG Base Excess VBG pH Sodium Potassium Chloride Carbon Dioxide BUN Glucose POC Glucose Lactic Acid 6.50 H* 5.80 H* AST 257 H ALT 283 H Troponin T C-Reactive Protein NT-Pro-B Natriuret Pep Total Protein 8.3 H HDL Cholesterol 07/03/19 07/04/19 07/04/19 23:02 00:46 04:02 WBC 15.2 H Hgb 16.6 H Hct 47.9 H MCV MCH 34 H MCHC 35 H RDW Lymph % (Auto) 7.1 L Lymph # 1.1 L Seg Neutrophils % 88.6 H Seg Neutrophils # 13.5 H PT INR POC ABG pH 7.246 L POC ABG pCO2 30.4 L POC ABG pO2 75 L ABG pO2 ABG HCO3 ABG Base Excess VBG pH Sodium Potassium Chloride Carbon Dioxide BUN Glucose POC Glucose Lactic Acid 8.00 H* AST ALT Troponin T C-Reactive Protein NT-Pro-B Natriuret Pep Total Protein HDL Cholesterol 07/04/19 07/04/19 07/04/19 04:02 06:30 07:52 WBC Hgb Hct MCV MCH MCHC RDW Lymph % (Auto) Lymph # Seg Neutrophils % Seg Neutrophils # PT INR POC ABG pH POC ABG pCO2 POC ABG pO2 ABG pO2 141.7 H ABG HCO3 15.7 L ABG Base Excess -7.1 L VBG pH Sodium Potassium Chloride Carbon Dioxide 17 L BUN 18 H Glucose 138 H POC Glucose Lactic Acid 4.10 H* AST 137 H ALT 224 H Troponin T C-Reactive Protein NT-Pro-B Natriuret Pep Total Protein HDL Cholesterol 07/04/19 07/04/19 07/04/19 08:52 08:52 08:52 WBC Hgb Hct MCV MCH MCHC RDW Lymph % (Auto) Lymph # Seg Neutrophils % Seg Neutrophils # PT INR POC ABG pH POC ABG pCO2 POC ABG pO2 ABG pO2 ABG HCO3 ABG Base Excess VBG pH Sodium Potassium Chloride Carbon Dioxide BUN Glucose POC Glucose Lactic Acid 3.60 H* AST ALT Troponin T C-Reactive Protein 4.80 H NT-Pro-B Natriuret Pep 82347 H Total Protein HDL Cholesterol 07/05/19 07/05/19 07/05/19 13:01 13:01 14:49 WBC Hgb Hct MCV MCH MCHC RDW Lymph % (Auto) Lymph # Seg Neutrophils % Seg Neutrophils # PT INR POC ABG pH POC ABG pCO2 POC ABG pO2 ABG pO2 ABG HCO3 ABG Base Excess VBG pH Sodium 135 L Potassium Chloride 96.1 L Carbon Dioxide BUN 28 H Glucose POC Glucose Lactic Acid 2.40 H* 3.10 H* AST ALT Troponin T C-Reactive Protein NT-Pro-B Natriuret Pep Total Protein HDL Cholesterol 07/07/19 07/07/19 07/07/19 04:32 04:32 04:32 WBC Hgb Hct MCV MCH 34 H MCHC 35 H RDW 13.1 L Lymph % (Auto) 40.4 H Lymph # Seg Neutrophils % Seg Neutrophils # PT 41.6 H INR 4.42 H POC ABG pH POC ABG pCO2 POC ABG pO2 ABG pO2 ABG HCO3 ABG Base Excess VBG pH Sodium 135 L Potassium 3.2 L D Chloride 94.5 L Carbon Dioxide BUN 29 H Glucose 107 H POC Glucose Lactic Acid AST ALT Troponin T C-Reactive Protein NT-Pro-B Natriuret Pep Total Protein HDL Cholesterol 07/07/19 07/07/19 07/07/19 14:19 17:42 19:45 WBC Hgb Hct MCV MCH MCHC RDW Lymph % (Auto) Lymph # Seg Neutrophils % Seg Neutrophils # PT INR POC ABG pH POC ABG pCO2 POC ABG pO2 ABG pO2 ABG HCO3 ABG Base Excess VBG pH Sodium Potassium Chloride Carbon Dioxide BUN Glucose POC Glucose 139 H 109 H Lactic Acid AST ALT Troponin T 0.094 H C-Reactive Protein NT-Pro-B Natriuret Pep Total Protein HDL Cholesterol 07/07/19 07/08/19 07/08/19 21:04 01:03 05:19 WBC Hgb Hct MCV MCH MCHC RDW Lymph % (Auto) Lymph # Seg Neutrophils % Seg Neutrophils # PT INR POC ABG pH POC ABG pCO2 POC ABG pO2 ABG pO2 ABG HCO3 ABG Base Excess VBG pH Sodium Potassium Chloride Carbon Dioxide BUN Glucose POC Glucose 108 H Lactic Acid AST ALT Troponin T 0.069 H D 0.073 H C-Reactive Protein NT-Pro-B Natriuret Pep Total Protein HDL Cholesterol 36 L 07/08/19 07:25 WBC Hgb Hct MCV MCH MCHC RDW Lymph % (Auto) Lymph # Seg Neutrophils % Seg Neutrophils # PT INR POC ABG pH POC ABG pCO2 POC ABG pO2 ABG pO2 ABG HCO3 ABG Base Excess VBG pH Sodium Potassium Chloride 94.5 L Carbon Dioxide BUN 22 H Glucose POC Glucose Lactic Acid AST ALT Troponin T C-Reactive Protein NT-Pro-B Natriuret Pep Total Protein HDL Cholesterol Allied health notes reviewed: nursing
[2019-07-08 10:08] LABS: Hepatitis B Surface Antigen Non-Reactive (Negative); Hepatitis C Virus Antibody Non-Reactive (NonReactive)
--- NOTE | 2019-07-08 11:47 | Progress Note ---
Assessment and Plan Acute pulmonary edema - resolved Acute systolic heart failure - resolved Echocardiogram revealed severe dilated cardiomyopathy, ejection fraction 10- 15%. Elevated liver transaminase Recommendations: Follow-up lexiscan findings Continue medical management for congestive heart failure as tolerated. Lifevest prior to discharge Subjective Date of service: 07/08/19 Principal diagnosis: Ac. hypoxemic resp failure; Ac. pulmonary edema; Acute CHF (New Onset) Interval history: Doing well No events overnight Objective Vital Signs Temp Pulse Resp BP Pulse Ox 07/08/19 10:00 87 07/08/19 09:27 112/68 07/08/19 09:26 116/72 07/08/19 09:25 109/71 07/08/19 09:24 111/71 07/08/19 09:23 121/80 07/08/19 09:21 109/76 07/08/19 09:17 106/70 07/08/19 09:15 111/76 07/08/19 09:11 105/68 07/08/19 09:06 101/71 07/08/19 07:49 97.9 F 66 18 100/66 100 07/08/19 03:06 97.9 F 59 L 16 114/79 98 07/08/19 01:50 75 12 97 07/07/19 23:20 98.0 F 66 16 96/63 100 07/07/19 22:14 71 07/07/19 20:20 71 12 97 07/07/19 20:00 68 07/07/19 19:25 97.7 F 70 12 101/62 98 07/07/19 17:18 18 84/54 07/07/19 15:56 97.9 F 66 18 91/59 100 07/07/19 11:54 98.1 F 77 20 130/87 100 07/07/19 11:46 72 108/77 - Physical Examination General: No Apparent Distress HEENT: Positive: PERRL Neck: Positive: trachea midline Cardiac: Positive: Reg Rate and Rhythm Lungs: Positive: Normal Exam Neuro: Positive: Grossly Intact Extremities: Absent: edema - Labs and Meds Lipids 07/08/19 Range/Units 01:03 Triglycerides 106 (2-149) mg/dL Cholesterol 168 (50-199) mg/dL HDL Cholesterol 36 L (40-59) mg/dL Cholesterol/HDL Ratio 4.66 % Comprehensive Metabolic Panel 07/08/19 Range/Units 07:25 Sodium 137 (137-145) mmol/L Potassium 4.0 D (3.6-5.0) mmol/L Chloride 94.5 L (98-107) mmol/L Carbon Dioxide 23 (22-30) mmol/L BUN 22 H (7-17) mg/dL Creatinine 1.1 (0.7-1.2) mg/dL Glucose 100 (65-100) mg/dL Calcium 9.4 (8.4-10.2) mg/dL - Allied health notes Allied health notes reviewed: nursing
[2019-07-08] MEDS: LISINOPRIL 5 MG TAB PO SCH (12:01)
[2019-07-08] MEDS: FAMOTIDINE 20 MG TAB PO SCH (12:01)
[2019-07-08] MEDS: ASPIRIN 81 MG TAB CHEW PO SCH (12:02)
[2019-07-08] MEDS: carvediloL 3.125 MG TAB PO SCH ×2 (12:02→21:26)
[2019-07-08] MEDS: POTASSIUM CHLORIDE ER 20 MEQ TAB PO SCH (12:03)
[2019-07-08] MEDS: SPIRONOLACTONE 25 MG TAB PO SCH (12:03)
[2019-07-08] MEDS: ENOXAPARIN 40 MG/0.4 ML INJ SUB-Q SCH (12:04)
[2019-07-08] MEDS: POLYETHYLENE GLYCOL 3350 17 GM POWDER PO SCH (12:15)
--- NOTE | 2019-07-08 13:48 | Progress Note ---
Assessment and Plan - Patient Problems (1) Congestive heart failure (CHF) Current Visit: Yes Status: Acute Plan to address problem: Patient presented with acute respiratory failure secondary to pulmonary edema congestive heart failure with ejection fraction of 10%. 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 (2) Respiratory failure Current Visit: Yes Status: Acute Qualifiers: Chronicity: acute Respiratory failure complication: hypoxia Qualified Code(s): J96.01 - Acute respiratory failure with hypoxia Plan to address problem: Q respiratory failure secondary to acute systolic heart failure. Ejection fraction 10-15%. (3) Chest pain Current Visit: Yes Status: Acute Plan to address problem: Patient Hospital course complicated by abnormal stress tests with a defect scheduled for cardiac catheterization in a.m. History Interval history: Patient 54-year-old that presents with acute respiratory failure secondary to congestive heart failure systolic congestive heart failure. Patient is currently chest pain-free now. Some shortness of breath otherwise stable. Patient hospital course was complicated by abnormal cardiac stress test. Patient to have cardiac catheterization in a.m. Hospitalist Physical - Constitutional Vitals: Temp Pulse Resp BP Pulse Ox 97.9 F 87 18 112/68 99 07/08/19 07:49 07/08/19 12:03 07/08/19 07:49 07/08/19 12:03 07/08/19 10:00 General appearance: Present: mild distress, well-nourished - EENT Eyes: Present: PERRL, EOM intact, irregular pupil ENT: hearing intact, clear oral mucosa, dentition normal - Neck Neck: Present: supple, normal ROM - Respiratory Respiratory effort: normal Respiratory: bilateral: CTA - Cardiovascular Rhythm: regular - Extremities Extremities: no ischemia, pulses intact, pulses symmetrical, No edema, normal temperature, normal color Peripheral Pulses: within normal limits - Abdominal General gastrointestinal: soft, non-tender, non-distended, normal bowel sounds - Integumentary Integumentary: Present: clear, warm, dry - Psychiatric Psychiatric: appropriate mood/affect, intact judgment & insight, memory intact - Neurologic Neurologic: CNII-XII intact, moves all extremities Results - Labs CBC & Chem 7: 07/07/19 04:32 07/08/19 07:25 Labs: Laboratory Last Values WBC 7.8 K/mm3 (4.5-11.0) 07/07/19 04:32 RBC 4.13 M/mm3 (3.65-5.03) 07/07/19 04:32 Hgb 13.8 gm/dl (10.1-14.3) 07/07/19 04:32 Hct 39.9 % (30.3-42.9) 07/07/19 04:32 MCV 97 fl (79-97) 07/07/19 04:32 MCH 34 pg (28-32) H 07/07/19 04:32 MCHC 35 % (30-34) H 07/07/19 04:32 RDW 13.1 % (13.2-15.2) L 07/07/19 04:32 Plt Count 154 K/mm3 (140-440) 07/07/19 04:32 Lymph % (Auto) 40.4 % (13.4-35.0) H 07/07/19 04:32 [place] % (Auto) 6.1 % (0.0-7.3) 07/07/19 04:32 Eos % (Auto) 1.8 % (0.0-4.3) 07/07/19 04:32 Baso % (Auto) 0.3 % (0.0-1.8) 07/07/19 04:32 Lymph # 3.1 K/mm3 (1.2-5.4) 07/07/19 04:32 [place] # 0.5 K/mm3 (0.0-0.8) 07/07/19 04:32 Eos # 0.1 K/mm3 (0.0-0.4) 07/07/19 04:32 Baso # 0.0 K/mm3 (0.0-0.1) 07/07/19 04:32 Seg Neutrophils % 51.4 % (40.0-70.0) 07/07/19 04:32 Seg Neutrophils # 4.0 K/mm3 (1.8-7.7) 07/07/19 04:32 PT 13.0 Sec. (12.2-14.9) 07/07/19 09:49 INR 1.01 (0.87-1.13) 07/07/19 09:49 POC ABG pH 7.246 (7.35-7.45) L 07/03/19 23:02 ABG pH 7.398 pH Units (7.350-7.450) 07/04/19 06:30 POC ABG pCO2 30.4 (35-45) L 07/03/19 23:02 ABG pCO2 26.1 mm Hg 07/04/19 06:30 POC ABG pO2 75 (80-105) L 07/03/19 23:02 ABG pO2 141.7 mm Hg (80.0-90.0) H 07/04/19 06:30 POC ABG HCO3 13.2 (22-26 mml/L) 07/03/19 23:02 ABG HCO3 15.7 mmol/L (20.0-26.0) L 07/04/19 06:30 POC ABG Total CO2 14 (23-27mmol/L) 07/03/19 23:02 POC ABG O2 Sat 92 07/03/19 23:02 ABG O2 Saturation 98.8 % (95.0-99.0) 07/04/19 06:30 ABG O2 Content 21.7 (0.0-44) 07/04/19 06:30 POC ABG Base Excess -14 ((-2) - (+3)mmol/L) 07/03/19 23:02 ABG Base Excess -7.1 mmol/L (-2.0-3.0) L 07/04/19 06:30 ABG Hemoglobin 15.7 gm/dl (12.0-16.0) 07/04/19 06:30 ABG Carboxyhemoglobin 1.0 % (0.0-5.0) 07/04/19 06:30 ABG Methemoglobin 0.5 % (0.0-1.5) 07/04/19 06:30 VBG pH 7.174 (7.320-7.420) L* 07/03/19 17:59 97.3 % (95.0-99.0) 07/04/19 06:30 50 % 07/04/19 06:30 Sodium 137 mmol/L (137-145) 07/08/19 07:25 Potassium 4.0 mmol/L (3.6-5.0) D 07/08/19 07:25 Chloride 94.5 mmol/L (98-107) L 07/08/19 07:25 Carbon Dioxide 23 mmol/L (22-30) 07/08/19 07:25 24 mmol/L 07/08/19 07:25 BUN 22 mg/dL (7-17) H 07/08/19 07:25 1.1 mg/dL (0.7-1.2) 07/08/19 07:25 Estimated GFR > 60 ml/min 07/08/19 07:25 20 % 07/08/19 07:25 Glucose 100 mg/dL (65-100) 07/08/19 07:25 POC Glucose 100 (70-105) 07/08/19 11:23 Lactic Acid 0.80 mmol/L (0.7-2.0) 07/07/19 13:05 Calcium 9.4 mg/dL (8.4-10.2) 07/08/19 07:25 0.40 mg/dL (0.1-1.2) 07/04/19 04:02 < 0.2 mg/dL (0-0.2) 07/03/19 20:37 0.3 mg/dL 07/03/19 20:37 AST 137 units/L (5-40) H 07/04/19 04:02 ALT 224 units/L (7-56) H 07/04/19 04:02 113 units/L (35-129) 07/04/19 04:02 0.073 ng/mL (0.00-0.029) H 07/08/19 05:19 4.80 mg/dL (0.00-1.30) H 07/04/19 08:52 NT-Pro-B Natriuret Pep 29771 pg/mL (0-900) H 07/04/19 08:52 8.0 g/dL (6.3-8.2) 07/04/19 04:02 3.9 g/dL (3.9-5) 07/04/19 04:02 1.0 % 07/04/19 04:02 Triglycerides 106 mg/dL (2-149) 07/08/19 01:03 Cholesterol 168 mg/dL (50-199) 07/08/19 01:03 121 mg/dL (50-130) 07/08/19 01:03 36 mg/dL (40-59) L 07/08/19 01:03 4.66 % 07/08/19 01:03 Plasma/Serum Alcohol < 0.01 % (0-0.07) 07/03/19 20:37 Hepatitis A IgM Ab Non-reactive (NonReactive) 07/08/19 07:25 Hep Bs Antigen Non-reactive (Negative) 07/08/19 07:25 Hep B Core IgM Ab Non-reactive (NonReactive) 07/08/19 07:25 Non-reactive (NonReactive) 07/08/19 07:25 - Imaging and Cardiology Chest x-ray: report reviewed Venous US: report reviewed (echocardiogram) Active Medications - Current Medications Current Medications: Generic Name Dose Route Start Last Admin Trade Name Freq PRN Reason Stop Dose Admin Albuterol 2.5 mg 07/03/19 20:30 Proventil IH Q3H PRN Shortness Of Breath Alprazolam 0.25 mg 07/05/19 14:00 Xanax PO TID PRN Anxiety Aspirin 81 mg 07/08/19 10:00 07/08/19 12:02 Baby Aspirin PO 81 mg QDAY SHYANN Administration Carvedilol 3.125 mg 07/05/19 22:00 07/08/19 12:02 Coreg PO 3.125 mg BID SHYANN Administration Enoxaparin Sodium 40 mg 07/04/19 10:00 07/08/19 12:04 Lovenox SUB-Q 40 mg QDAY SHYANN Administration Famotidine 20 mg 07/05/19 10:00 07/08/19 12:01 Pepcid PO 20 mg DAILY SHYANN Administration Furosemide 40 mg 07/04/19 00:00 07/08/19 05:20 Lasix IV 40 mg 0600,1800 SHYANN Administration Lisinopril 2.5 mg 07/06/19 10:00 07/08/19 12:01 Zestril PO 2.5 mg QDAY SHYANN Administration Morphine Sulfate 2 mg 07/07/19 14:30 Morphine IV Q3H PRN Pain, Moderate (4-6) Polyethylene Glycol 17 gm 07/07/19 20:00 07/08/19 12:15 Miralax 3350 PO Not Given QDAY SHYANN Potassium Chloride 20 meq 07/08/19 10:00 07/08/19 12:03 K-Dur PO 20 meq QDAY SHYANN Administration Sodium Chloride 10 ml 07/03/19 22:00 07/08/19 12:04 Sodium Chloride Flush Syringe 10 Ml IV 10 ml BID SHYANN Administration Sodium Chloride 10 ml 07/03/19 20:30 07/05/19 09:23 Sodium Chloride Flush Syringe 10 Ml IV 10 ml PRN PRN Administration LINE FLUSH Spironolactone 25 mg 07/07/19 10:30 07/08/19 12:03 Aldactone PO 25 mg QDAY SHYANN Administration Nutrition/Malnutrition Assess - Dietary Evaluation Nutrition/Malnutrition Findings: Nutrition Notes Start: 07/08/19 13:09 Freq: Status: Active Protocol: Document 07/08/19 13:10 RM (Rec: 07/08/19 13:19 RM [id number]) Nutrition Notes Need for Assessment generated from: LOS Initial or Follow up Assessment Current Diagnosis Heart Failure Other Pertinent Diagnosis Pneu, SIRS Current Diet NPO after midnight Labs/Tests Reviewed Pertinent Medications Lasix Height 5 ft 5 in Weight 69.1 kg [place] Body Weight (kg) 56.81 BMI 25.3 Subjective/Other Information Screened for LOS. Pt stated that her appetite is "so so" and that she ate bites of her meals before NPO status. Percent of energy/protein needs met: 0%/0% Burn Absent Trauma Absent Minimum of two criteria No #1 Nutrition Diagnosis Inadequate oral intake Etiology decreased appetite As Evidenced by Signs and Symptoms pt statement that she ate bites of her meals before NPO status Is patient on ventilator? No Is Patient Ambulatory and/or Out of Bed No REE-([facility]-confined to bed) [phone] Calculation Used for Recommendations [facility] Additional Notes Protein Needs: 104-117g (1.5-1 .7g/kg) Fluid Needs: 1 ml/kcal Nutrition Intervention Change Diet Order: Advance diet when medically able Add Supplement/Snack (indicate name/kcal Ensure Enlive [place] 1 /protein ) daily once diet advanced Provides kCal: 350 Provides Protein (gm) 20 Goal #1 Diet advancement Anticipated Discharge Needs: Unable to determine at this time Follow-Up By: 07/12/19 Additional Comments Follow for PO and ONS intakes
[2019-07-09] MEDS: FUROSEMIDE 40 MG/4 ML INJ IV SCH ×2 (05:37→17:30)
--- NOTE | 2019-07-09 05:38 | Treadmill Report ---
INDICATION: Cardiomyopathy. ORDERING PHYSICIAN: Dr. Jayashree Chowdhury. FINDINGS: The left ventricular cavity is normal in size. There is evidence of a small, mildly reversible apical and mid anterior wall defect. Overlying breast attenuation artifact cannot be completely excluded. Gated wall imaging reveals an ejection fraction of 39% with moderate global hypokinesis. IMPRESSION: 1. Small, mildly reversible apical and mid anterior wall defect. LAD ischemia versus breast attenuation artifact. 2. The left ventricular ejection fraction is measured at 39% with moderate global left ventricular hypokinesis. JOB# [id number] AKAlfa/NTS
[2019-07-09] MEDS: ENOXAPARIN 40 MG/0.4 ML INJ SUB-Q SCH (09:52)
[2019-07-09] MEDS: POTASSIUM CHLORIDE ER 20 MEQ TAB PO SCH (09:53)
[2019-07-09] MEDS: FAMOTIDINE 20 MG TAB PO SCH (09:53)
[2019-07-09] MEDS: LISINOPRIL 5 MG TAB PO SCH (09:53)
[2019-07-09] MEDS: ASPIRIN 81 MG TAB CHEW PO SCH (09:53)
[2019-07-09] MEDS: carvediloL 3.125 MG TAB PO SCH ×2 (09:54→21:42)
[2019-07-09] MEDS: SPIRONOLACTONE 25 MG TAB PO SCH (09:59)
[2019-07-09] MEDS: POLYETHYLENE GLYCOL 3350 17 GM POWDER PO SCH (10:00)
--- NOTE | 2019-07-09 11:28 | Progress Note ---
Assessment and Plan - Patient Problems (1) Congestive heart failure (CHF) Current Visit: Yes Status: Acute Plan to address problem: Patient presented with acute respiratory failure respiratory failure has resolved with diuretics. Patient's chest clear oxygenating much better. congestive heart failure with ejection fraction of 10%. 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 Unclear etiology patient had small reversible defect plan for cardiac catheterization on Thursday. LifeVest prior to discharge. (2) Respiratory failure Current Visit: Yes Status: Acute Qualifiers: Chronicity: acute Respiratory failure complication: hypoxia Qualified Code(s): J96.01 - Acute respiratory failure with hypoxia Plan to address problem: Acute respiratory failure secondary to systolic congestive heart failure acute CHF exacerbation. Resolving with afterload reduce his diuretics Tyrone inhibitors. Abnormal stress test. Cardiac catheterization planned for Thursday. (3) Chest pain Current Visit: Yes Status: Acute Plan to address problem: Patient Hospital course complicated by abnormal stress tests with a defect scheduled for cardiac catheterization in a.m. History Interval history: Patient states she feels better today a little depressed. About her children. Sister at bedside. States she does not want anything for depression or anxiety no pills she says she'll let me know if he changes her mind. Denies chest pain denies shortness of breath. Hospitalist Physical - Constitutional Vitals: Temp Pulse Resp BP Pulse Ox 97.9 F 75 18 101/66 100 07/09/19 07:50 07/09/19 09:59 07/09/19 07:50 07/09/19 09:59 07/09/19 07:50 General appearance: Present: no acute distress, well-nourished - EENT Eyes: Present: PERRL, EOM intact ENT: hearing intact, clear oral mucosa, dentition normal - Neck Neck: Present: supple, normal ROM - Respiratory Respiratory: right: diminished, bilateral: CTA - Cardiovascular Rhythm: regular - Extremities Extremities: no ischemia, pulses intact, pulses symmetrical, No edema, normal temperature, normal color, Full ROM Peripheral Pulses: within normal limits - Abdominal General gastrointestinal: soft, non-tender, non-distended, normal bowel sounds, no hepatomegaly, no splenomegaly, no mass - Integumentary Integumentary: Present: clear, warm, dry - Psychiatric Psychiatric: appropriate mood/affect, intact judgment & insight, memory intact, depressed - Neurologic Neurologic: moves all extremities Results - Labs CBC & Chem 7: 07/07/19 04:32 07/08/19 07:25 Labs: Laboratory Last Values WBC 7.8 K/mm3 (4.5-11.0) 07/07/19 04:32 RBC 4.13 M/mm3 (3.65-5.03) 07/07/19 04:32 Hgb 13.8 gm/dl (10.1-14.3) 07/07/19 04:32 Hct 39.9 % (30.3-42.9) 07/07/19 04:32 MCV 97 fl (79-97) 07/07/19 04:32 MCH 34 pg (28-32) H 07/07/19 04:32 MCHC 35 % (30-34) H 07/07/19 04:32 RDW 13.1 % (13.2-15.2) L 07/07/19 04:32 Plt Count 154 K/mm3 (140-440) 07/07/19 04:32 Lymph % (Auto) 40.4 % (13.4-35.0) H 07/07/19 04:32 [place] % (Auto) 6.1 % (0.0-7.3) 07/07/19 04:32 Eos % (Auto) 1.8 % (0.0-4.3) 07/07/19 04:32 Baso % (Auto) 0.3 % (0.0-1.8) 07/07/19 04:32 Lymph # 3.1 K/mm3 (1.2-5.4) 07/07/19 04:32 [place] # 0.5 K/mm3 (0.0-0.8) 07/07/19 04:32 Eos # 0.1 K/mm3 (0.0-0.4) 07/07/19 04:32 Baso # 0.0 K/mm3 (0.0-0.1) 07/07/19 04:32 Seg Neutrophils % 51.4 % (40.0-70.0) 07/07/19 04:32 Seg Neutrophils # 4.0 K/mm3 (1.8-7.7) 07/07/19 04:32 PT 13.0 Sec. (12.2-14.9) 07/07/19 09:49 INR 1.01 (0.87-1.13) 07/07/19 09:49 POC ABG pH 7.246 (7.35-7.45) L 07/03/19 23:02 ABG pH 7.398 pH Units (7.350-7.450) 07/04/19 06:30 POC ABG pCO2 30.4 (35-45) L 07/03/19 23:02 ABG pCO2 26.1 mm Hg 07/04/19 06:30 POC ABG pO2 75 (80-105) L 07/03/19 23:02 ABG pO2 141.7 mm Hg (80.0-90.0) H 07/04/19 06:30 POC ABG HCO3 13.2 (22-26 mml/L) 07/03/19 23:02 ABG HCO3 15.7 mmol/L (20.0-26.0) L 07/04/19 06:30 POC ABG Total CO2 14 (23-27mmol/L) 07/03/19 23:02 POC ABG O2 Sat 92 07/03/19 23:02 ABG O2 Saturation 98.8 % (95.0-99.0) 07/04/19 06:30 ABG O2 Content 21.7 (0.0-44) 07/04/19 06:30 POC ABG Base Excess -14 ((-2) - (+3)mmol/L) 07/03/19 23:02 ABG Base Excess -7.1 mmol/L (-2.0-3.0) L 07/04/19 06:30 ABG Hemoglobin 15.7 gm/dl (12.0-16.0) 07/04/19 06:30 ABG Carboxyhemoglobin 1.0 % (0.0-5.0) 07/04/19 06:30 ABG Methemoglobin 0.5 % (0.0-1.5) 07/04/19 06:30 VBG pH 7.174 (7.320-7.420) L* 07/03/19 17:59 97.3 % (95.0-99.0) 07/04/19 06:30 50 % 07/04/19 06:30 Sodium 137 mmol/L (137-145) 07/08/19 07:25 Potassium 4.0 mmol/L (3.6-5.0) D 07/08/19 07:25 Chloride 94.5 mmol/L (98-107) L 07/08/19 07:25 Carbon Dioxide 23 mmol/L (22-30) 07/08/19 07:25 24 mmol/L 07/08/19 07:25 BUN 22 mg/dL (7-17) H 07/08/19 07:25 1.1 mg/dL (0.7-1.2) 07/08/19 07:25 Estimated GFR > 60 ml/min 07/08/19 07:25 20 % 07/08/19 07:25 Glucose 100 mg/dL (65-100) 07/08/19 07:25 POC Glucose 78 (70-105) 07/09/19 07:55 Lactic Acid 0.80 mmol/L (0.7-2.0) 07/07/19 13:05 Calcium 9.4 mg/dL (8.4-10.2) 07/08/19 07:25 0.40 mg/dL (0.1-1.2) 07/04/19 04:02 < 0.2 mg/dL (0-0.2) 07/03/19 20:37 0.3 mg/dL 07/03/19 20:37 AST 137 units/L (5-40) H 07/04/19 04:02 ALT 224 units/L (7-56) H 07/04/19 04:02 113 units/L (35-129) 07/04/19 04:02 0.033 ng/mL (0.00-0.029) H D 07/08/19 12:28 4.80 mg/dL (0.00-1.30) H 07/04/19 08:52 NT-Pro-B Natriuret Pep 22402 pg/mL (0-900) H 07/04/19 08:52 8.0 g/dL (6.3-8.2) 07/04/19 04:02 3.9 g/dL (3.9-5) 07/04/19 04:02 1.0 % 07/04/19 04:02 Triglycerides 106 mg/dL (2-149) 07/08/19 01:03 Cholesterol 168 mg/dL (50-199) 07/08/19 01:03 121 mg/dL (50-130) 07/08/19 01:03 36 mg/dL (40-59) L 07/08/19 01:03 4.66 % 07/08/19 01:03 Plasma/Serum Alcohol < 0.01 % (0-0.07) 07/03/19 20:37 Hepatitis A IgM Ab Non-reactive (NonReactive) 07/08/19 07:25 Hep Bs Antigen Non-reactive (Negative) 07/08/19 07:25 Hep B Core IgM Ab Non-reactive (NonReactive) 07/08/19 07:25 Non-reactive (NonReactive) 07/08/19 07:25 Active Medications - Current Medications Current Medications: Generic Name Dose Route Start Last Admin Trade Name Freq PRN Reason Stop Dose Admin Albuterol 2.5 mg 07/03/19 20:30 Proventil IH Q3H PRN Shortness Of Breath Alprazolam 0.25 mg 07/05/19 14:00 Xanax PO TID PRN Anxiety Aspirin 81 mg 07/08/19 10:00 07/09/19 09:53 Baby Aspirin PO 81 mg QDAY SHYANN Administration Carvedilol 3.125 mg 07/05/19 22:00 07/09/19 09:54 Coreg PO 3.125 mg BID SHYANN Administration Enoxaparin Sodium 40 mg 07/04/19 10:00 07/09/19 09:52 Lovenox SUB-Q 40 mg QDAY SHYANN Administration Famotidine 20 mg 07/05/19 10:00 07/09/19 09:53 Pepcid PO 20 mg DAILY SHYANN Administration Furosemide 40 mg 07/04/19 00:00 07/09/19 05:37 Lasix IV 40 mg 0600,1800 SHYANN Administration Lisinopril 2.5 mg 07/06/19 10:00 07/09/19 09:53 Zestril PO 2.5 mg QDAY SHYANN Administration Morphine Sulfate 2 mg 07/07/19 14:30 Morphine IV Q3H PRN Pain, Moderate (4-6) Polyethylene Glycol 17 gm 07/07/19 20:00 07/09/19 10:00 Miralax 3350 PO Not Given QDAY SHYANN Potassium Chloride 20 meq 07/08/19 10:00 07/09/19 09:53 K-Dur PO 20 meq QDAY SHYANN Administration Sodium Chloride 10 ml 07/03/19 22:00 07/09/19 09:59 Sodium Chloride Flush Syringe 10 Ml IV 10 ml BID SHYANN Administration Sodium Chloride 10 ml 07/03/19 20:30 07/05/19 09:23 Sodium Chloride Flush Syringe 10 Ml IV 10 ml PRN PRN Administration LINE FLUSH Spironolactone 25 mg 07/07/19 10:30 07/09/19 09:59 Aldactone PO 25 mg QDAY SHYANN Administration Nutrition/Malnutrition Assess - Dietary Evaluation Nutrition/Malnutrition Findings: Nutrition Notes Start: 07/08/19 13:09 Freq: Status: Active Protocol: Document 07/08/19 13:10 RM (Rec: 07/08/19 13:19 RM [id number]) Nutrition Notes Need for Assessment generated from: LOS Initial or Follow up Assessment Current Diagnosis Heart Failure Other Pertinent Diagnosis Pneu, SIRS Current Diet NPO after midnight Labs/Tests Reviewed Pertinent Medications Lasix Height 5 ft 5 in Weight 69.1 kg [place] Body Weight (kg) 56.81 BMI 25.3 Subjective/Other Information Screened for LOS. Pt stated that her appetite is "so so" and that she ate bites of her meals before NPO status. Percent of energy/protein needs met: 0%/0% Burn Absent Trauma Absent Minimum of two criteria No #1 Nutrition Diagnosis Inadequate oral intake Etiology decreased appetite As Evidenced by Signs and Symptoms pt statement that she ate bites of her meals before NPO status Is patient on ventilator? No Is Patient Ambulatory and/or Out of Bed No REE-([facility]-confined to bed) [phone] Calculation Used for Recommendations [facility] Additional Notes Protein Needs: 104-117g (1.5-1 .7g/kg) Fluid Needs: 1 ml/kcal Nutrition Intervention Change Diet Order: Advance diet when medically able Add Supplement/Snack (indicate name/kcal Ensure Enlive [place] 1 /protein ) daily once diet advanced Provides kCal: 350 Provides Protein (gm) 20 Goal #1 Diet advancement Anticipated Discharge Needs: Unable to determine at this time Follow-Up By: 07/12/19 Additional Comments Follow for PO and ONS intakes
--- NOTE | 2019-07-09 12:17 | Progress Note ---
Assessment and Plan - Patient Problems (1) Congestive heart failure (CHF) Current Visit: Yes Status: Acute Plan to address problem: Congestive heart failure fluid overload optimize. A cardiac catheterization has been recommended for Thursday morning. Subjective Date of service: 07/09/19 Principal diagnosis: Ac. hypoxemic resp failure; Ac. pulmonary edema; Acute CHF (New Onset) Interval history: Patient is comfortable, no cardiac complaints. Looks and feels better. Objective Vital Signs Temp Pulse Resp BP Pulse Ox 07/09/19 11:58 98.0 F 70 18 93/63 98 07/09/19 09:59 75 101/66 07/09/19 09:54 75 101/66 07/09/19 09:53 75 101/66 07/09/19 07:50 97.9 F 75 18 101/66 100 07/09/19 05:38 97.7 F 07/09/19 05:35 69 16 102/68 100 07/08/19 23:40 77 22 96 07/08/19 22:19 98.1 F 07/08/19 22:18 61 18 101/65 100 07/08/19 22:01 99 07/08/19 20:41 18 07/08/19 20:38 71 07/08/19 20:16 98.1 F 07/08/19 20:15 71 18 100/65 100 07/08/19 17:59 18 108/71 07/08/19 17:10 98.2 F 71 18 95/63 100 - Physical Examination General: No Apparent Distress HEENT: Positive: PERRL Neck: Positive: trachea midline Cardiac: Positive: Reg Rate and Rhythm Lungs: Positive: Decreased Breath Sounds Neuro: Positive: Grossly Intact Abdomen: Positive: Soft Skin: Positive: Clear Extremities: Absent: edema - Allied health notes Allied health notes reviewed: nursing
--- NOTE | 2019-07-09 15:12 | Progress Note ---
Assessment and Plan Acute hypoxemic respiratory failure Acute pulmonary edema. Acute congestive heart failure exacerbation (new onset) Leukocytosis. Tobacco use disorder. Metabolic acidosis, mild. Lactic acidosis. Elevated serum transaminases. Possible occult pneumonia. History of anxiety. -For cardiac cath on Thursday -Smoking cessation counselling done at the bedside -Life vest on discharge - continue prn xanax for anxiolysis - continue to wean supplemental oxygen to keep O2 sat's > 90% - continue BIPAP prn - continue diuresis, heart failure measures - prn bronchodilators - follow clinically off AB's - VTE prophylaxis Updated patient and family at the bedside. All questions answered Subjective Date of service: 07/09/19 Principal diagnosis: Ac. hypoxemic resp failure; Ac. pulmonary edema; Acute CHF (New Onset) Interval history: Patient is seen today for: Acute hypoxemic respiratory failure; Acute pulmonary edema; Acute CHF exacerbation (new onset); Leukocytosis; Tobacco use disorder; Metabolic acidosis, mild; Lactic acidosis; Elevated serum transaminases; Possible occult pneumonia; History of anxiety. Seen and examined at bedside; 24hour events reviewed; nursing and respiratory care staff consulted; no adverse overnight events reported to me; resting peacefully in bed;anxious about cardiac cath and life vest. family is visiting. Comfortable, denies any chest pain, no shortness of breath. denies any fevers, chills, nausea or vomiting. Vitals, labs, medications, chart notes reviewed Objective Vital Signs - 12hr 07/09/19 07/09/19 07/09/19 05:35 05:38 07:50 Temperature 97.7 F 97.9 F Pulse Rate 69 75 Respiratory 16 18 Rate Blood Pressure 102/68 101/66 O2 Sat by Pulse 100 100 Oximetry 07/09/19 07/09/19 07/09/19 09:53 09:54 09:59 Temperature Pulse Rate 75 75 75 Respiratory Rate Blood Pressure 101/66 101/66 101/66 O2 Sat by Pulse Oximetry 07/09/19 07/09/19 10:00 11:58 Temperature 98.0 F Pulse Rate 70 Respiratory 18 Rate Blood Pressure 93/63 O2 Sat by Pulse 98 98 Oximetry Constitutional: no acute distress, alert Eyes: non-icteric ENT: oropharynx moist, other (mallampati 3) Neck: supple, no lymphadenopathy, no JVD Effort: normal Ascultation: Bilateral: rales (bases bilaterally) Percussion: Bilateral: not dull Cardiovascular: regular rate and rhythm, other (No R/M) Gastrointestinal: normoactive bowel sounds, soft, non-tender, non-distended Integumentary: normal Extremities: no cyanosis, no edema, pulses normal, no ischemia or petechiae Neurologic: normal mental status, non-focal exam, pupils equal and round, CN II- XII normal, motor strength normal and Psychiatric: mood appropriate, anxious CBC and BMP: 07/07/19 04:32 07/08/19 07:25 ABG, PT/INR, D-dimer: ABG POC ABG pH 7.246 (7.35-7.45) L 07/03/19 23:02 ABG pH 7.398 pH Units (7.350-7.450) 07/04/19 06:30 POC ABG pCO2 30.4 (35-45) L 07/03/19 23:02 ABG pCO2 26.1 mm Hg 07/04/19 06:30 POC ABG pO2 75 (80-105) L 07/03/19 23:02 ABG pO2 141.7 mm Hg (80.0-90.0) H 07/04/19 06:30 POC ABG HCO3 13.2 (22-26 mml/L) 07/03/19 23:02 POC ABG Total CO2 14 (23-27mmol/L) 07/03/19 23:02 POC ABG O2 Sat 92 07/03/19 23:02 ABG O2 Saturation 98.8 % (95.0-99.0) 07/04/19 06:30 PT/INR, D-dimer PT 13.0 Sec. (12.2-14.9) 07/07/19 09:49 INR 1.01 (0.87-1.13) 07/07/19 09:49 Abnormal lab findings: Abnormal Labs 07/03/19 07/03/19 07/03/19 17:54 17:54 17:54 WBC 12.6 H Hgb 15.4 H Hct 46.0 H MCV 99 H MCH 33 H MCHC RDW Lymph % (Auto) 7.9 L Lymph # 1.0 L Seg Neutrophils % 86.6 H Seg Neutrophils # 11.0 H PT INR POC ABG pH POC ABG pCO2 POC ABG pO2 ABG pO2 ABG HCO3 ABG Base Excess VBG pH Sodium Potassium Chloride Carbon Dioxide 16 L BUN Glucose 210 H POC Glucose Lactic Acid 7.90 H* AST 226 H ALT 272 H Troponin T C-Reactive Protein NT-Pro-B Natriuret Pep Total Protein HDL Cholesterol 07/03/19 07/03/19 07/03/19 17:59 18:41 19:15 WBC Hgb Hct MCV MCH MCHC RDW Lymph % (Auto) Lymph # Seg Neutrophils % Seg Neutrophils # PT INR POC ABG pH 7.305 L POC ABG pCO2 POC ABG pO2 77 L ABG pO2 ABG HCO3 ABG Base Excess VBG pH 7.174 L* Sodium Potassium Chloride Carbon Dioxide BUN Glucose POC Glucose Lactic Acid 6.90 H* AST ALT Troponin T C-Reactive Protein NT-Pro-B Natriuret Pep Total Protein HDL Cholesterol 07/03/19 07/03/19 07/03/19 20:37 20:37 21:51 WBC Hgb Hct MCV MCH MCHC RDW Lymph % (Auto) Lymph # Seg Neutrophils % Seg Neutrophils # PT INR POC ABG pH POC ABG pCO2 POC ABG pO2 ABG pO2 ABG HCO3 ABG Base Excess VBG pH Sodium Potassium Chloride Carbon Dioxide BUN Glucose POC Glucose Lactic Acid 6.50 H* 5.80 H* AST 257 H ALT 283 H Troponin T C-Reactive Protein NT-Pro-B Natriuret Pep Total Protein 8.3 H HDL Cholesterol 07/03/19 07/04/19 07/04/19 23:02 00:46 04:02 WBC 15.2 H Hgb 16.6 H Hct 47.9 H MCV MCH 34 H MCHC 35 H RDW Lymph % (Auto) 7.1 L Lymph # 1.1 L Seg Neutrophils % 88.6 H Seg Neutrophils # 13.5 H PT INR POC ABG pH 7.246 L POC ABG pCO2 30.4 L POC ABG pO2 75 L ABG pO2 ABG HCO3 ABG Base Excess VBG pH Sodium Potassium Chloride Carbon Dioxide BUN Glucose POC Glucose Lactic Acid 8.00 H* AST ALT Troponin T C-Reactive Protein NT-Pro-B Natriuret Pep Total Protein HDL Cholesterol 07/04/19 07/04/19 07/04/19 04:02 06:30 07:52 WBC Hgb Hct MCV MCH MCHC RDW Lymph % (Auto) Lymph # Seg Neutrophils % Seg Neutrophils # PT INR POC ABG pH POC ABG pCO2 POC ABG pO2 ABG pO2 141.7 H ABG HCO3 15.7 L ABG Base Excess -7.1 L VBG pH Sodium Potassium Chloride Carbon Dioxide 17 L BUN 18 H Glucose 138 H POC Glucose Lactic Acid 4.10 H* AST 137 H ALT 224 H Troponin T C-Reactive Protein NT-Pro-B Natriuret Pep Total Protein HDL Cholesterol 07/04/19 07/04/19 07/04/19 08:52 08:52 08:52 WBC Hgb Hct MCV MCH MCHC RDW Lymph % (Auto) Lymph # Seg Neutrophils % Seg Neutrophils # PT INR POC ABG pH POC ABG pCO2 POC ABG pO2 ABG pO2 ABG HCO3 ABG Base Excess VBG pH Sodium Potassium Chloride Carbon Dioxide BUN Glucose POC Glucose Lactic Acid 3.60 H* AST ALT Troponin T C-Reactive Protein 4.80 H NT-Pro-B Natriuret Pep 29929 H Total Protein HDL Cholesterol 07/05/19 07/05/19 07/05/19 13:01 13:01 14:49 WBC Hgb Hct MCV MCH MCHC RDW Lymph % (Auto) Lymph # Seg Neutrophils % Seg Neutrophils # PT INR POC ABG pH POC ABG pCO2 POC ABG pO2 ABG pO2 ABG HCO3 ABG Base Excess VBG pH Sodium 135 L Potassium Chloride 96.1 L Carbon Dioxide BUN 28 H Glucose POC Glucose Lactic Acid 2.40 H* 3.10 H* AST ALT Troponin T C-Reactive Protein NT-Pro-B Natriuret Pep Total Protein HDL Cholesterol 07/07/19 07/07/19 07/07/19 04:32 04:32 04:32 WBC Hgb Hct MCV MCH 34 H MCHC 35 H RDW 13.1 L Lymph % (Auto) 40.4 H Lymph # Seg Neutrophils % Seg Neutrophils # PT 41.6 H INR 4.42 H POC ABG pH POC ABG pCO2 POC ABG pO2 ABG pO2 ABG HCO3 ABG Base Excess VBG pH Sodium 135 L Potassium 3.2 L D Chloride 94.5 L Carbon Dioxide BUN 29 H Glucose 107 H POC Glucose Lactic Acid AST ALT Troponin T C-Reactive Protein NT-Pro-B Natriuret Pep Total Protein HDL Cholesterol 07/07/19 07/07/19 07/07/19 14:19 17:42 19:45 WBC Hgb Hct MCV MCH MCHC RDW Lymph % (Auto) Lymph # Seg Neutrophils % Seg Neutrophils # PT INR POC ABG pH POC ABG pCO2 POC ABG pO2 ABG pO2 ABG HCO3 ABG Base Excess VBG pH Sodium Potassium Chloride Carbon Dioxide BUN Glucose POC Glucose 139 H 109 H Lactic Acid AST ALT Troponin T 0.094 H C-Reactive Protein NT-Pro-B Natriuret Pep Total Protein HDL Cholesterol 07/07/19 07/08/19 07/08/19 21:04 01:03 05:19 WBC Hgb Hct MCV MCH MCHC RDW Lymph % (Auto) Lymph # Seg Neutrophils % Seg Neutrophils # PT INR POC ABG pH POC ABG pCO2 POC ABG pO2 ABG pO2 ABG HCO3 ABG Base Excess VBG pH Sodium Potassium Chloride Carbon Dioxide BUN Glucose POC Glucose 108 H Lactic Acid AST ALT Troponin T 0.069 H D 0.073 H C-Reactive Protein NT-Pro-B Natriuret Pep Total Protein HDL Cholesterol 36 L 07/08/19 07/08/19 07/08/19 07:25 12:28 20:54 WBC Hgb Hct MCV MCH MCHC RDW Lymph % (Auto) Lymph # Seg Neutrophils % Seg Neutrophils # PT INR POC ABG pH POC ABG pCO2 POC ABG pO2 ABG pO2 ABG HCO3 ABG Base Excess VBG pH Sodium Potassium Chloride 94.5 L Carbon Dioxide BUN 22 H Glucose POC Glucose 128 H Lactic Acid AST ALT Troponin T 0.033 H D C-Reactive Protein NT-Pro-B Natriuret Pep Total Protein HDL Cholesterol Allied health notes reviewed: nursing
[2019-07-09] MEDS ORDERED: ALUM-MAG HYDROXIDE-SIMETHICONE 200-200-20MG/5ML ORAL LIQD 30 ML PO PRN (18:42)
[2019-07-10] MEDS: FUROSEMIDE 40 MG/4 ML INJ IV SCH ×2 (06:05→20:37)
[2019-07-10] MEDS: carvediloL 3.125 MG TAB PO SCH ×2 (10:57→22:26)
[2019-07-10] MEDS: ASPIRIN 81 MG TAB CHEW PO SCH (10:57)
[2019-07-10] MEDS: FAMOTIDINE 20 MG TAB PO SCH (10:57)
[2019-07-10] MEDS: SPIRONOLACTONE 25 MG TAB PO SCH (10:58)
[2019-07-10] MEDS: POLYETHYLENE GLYCOL 3350 17 GM POWDER PO SCH ×2 (10:58→11:29)
[2019-07-10] MEDS: POTASSIUM CHLORIDE ER 20 MEQ TAB PO SCH (10:58)
[2019-07-10] MEDS: ENOXAPARIN 40 MG/0.4 ML INJ SUB-Q SCH ×2 (10:58→11:29)
[2019-07-10] MEDS: LISINOPRIL 5 MG TAB PO SCH (10:59)
--- NOTE | 2019-07-10 12:45 | Progress Note ---
Assessment and Plan - Patient Problems (1) Congestive heart failure (CHF) Current Visit: Yes Status: Acute Plan to address problem: At present ejection fraction 10-15%. Now compensated with diuretics. Awaiting left heart cath in a.m. (2) Respiratory failure Current Visit: Yes Status: Acute Qualifiers: Chronicity: acute Respiratory failure complication: hypoxia Qualified Code(s): J96.01 - Acute respiratory failure with hypoxia Plan to address problem: Acute respiratory failure secondary to systolic congestive heart failure acute CHF exacerbation. Resolving with afterload reduce his diuretics Tyrone inhibitors. Abnormal stress test. Cardiac catheterization planned for Thursday. (3) Chest pain Current Visit: Yes Status: Acute Plan to address problem: She did present remains chest pain free to glycerin when necessary. (4) HTN (hypertension) Current Visit: Yes Status: Acute Plan to address problem: A partial stable very well controlled. Coreg lisinopril diuretic. History Interval history: Family bedside all questions and concerns answered to sisters and patient's satisfaction. No new events. Awaiting on cardiac catheterization a.m. Hospitalist Physical - Constitutional Vitals: Temp Pulse Resp BP Pulse Ox 98.1 F 89 18 112/82 100 07/10/19 11:49 07/10/19 08:26 07/10/19 11:49 07/10/19 11:49 07/10/19 11:49 General appearance: Present: no acute distress, well-nourished - EENT Eyes: Present: PERRL, EOM intact ENT: hearing intact, clear oral mucosa, dentition normal - Neck Neck: Present: supple, normal ROM - Respiratory Respiratory effort: normal Respiratory: bilateral: CTA - Cardiovascular Rhythm: regular - Extremities Extremities: no ischemia, pulses intact, pulses symmetrical, No edema Peripheral Pulses: within normal limits - Abdominal General gastrointestinal: soft, non-distended - Integumentary Integumentary: Present: clear, warm, dry - Psychiatric Psychiatric: appropriate mood/affect - Neurologic Neurologic: CNII-XII intact Results - Labs CBC & Chem 7: 07/07/19 04:32 07/08/19 07:25 Labs: Laboratory Last Values WBC 7.8 K/mm3 (4.5-11.0) 07/07/19 04:32 RBC 4.13 M/mm3 (3.65-5.03) 07/07/19 04:32 Hgb 13.8 gm/dl (10.1-14.3) 07/07/19 04:32 Hct 39.9 % (30.3-42.9) 07/07/19 04:32 MCV 97 fl (79-97) 07/07/19 04:32 MCH 34 pg (28-32) H 07/07/19 04:32 MCHC 35 % (30-34) H 07/07/19 04:32 RDW 13.1 % (13.2-15.2) L 07/07/19 04:32 Plt Count 154 K/mm3 (140-440) 07/07/19 04:32 Lymph % (Auto) 40.4 % (13.4-35.0) H 07/07/19 04:32 Cook % (Auto) 6.1 % (0.0-7.3) 07/07/19 04:32 Eos % (Auto) 1.8 % (0.0-4.3) 07/07/19 04:32 Baso % (Auto) 0.3 % (0.0-1.8) 07/07/19 04:32 Lymph # 3.1 K/mm3 (1.2-5.4) 07/07/19 04:32 Cook # 0.5 K/mm3 (0.0-0.8) 07/07/19 04:32 Eos # 0.1 K/mm3 (0.0-0.4) 07/07/19 04:32 Baso # 0.0 K/mm3 (0.0-0.1) 07/07/19 04:32 Seg Neutrophils % 51.4 % (40.0-70.0) 07/07/19 04:32 Seg Neutrophils # 4.0 K/mm3 (1.8-7.7) 07/07/19 04:32 PT 13.0 Sec. (12.2-14.9) 07/07/19 09:49 INR 1.01 (0.87-1.13) 07/07/19 09:49 POC ABG pH 7.246 (7.35-7.45) L 07/03/19 23:02 ABG pH 7.398 pH Units (7.350-7.450) 07/04/19 06:30 POC ABG pCO2 30.4 (35-45) L 07/03/19 23:02 ABG pCO2 26.1 mm Hg 07/04/19 06:30 POC ABG pO2 75 (80-105) L 07/03/19 23:02 ABG pO2 141.7 mm Hg (80.0-90.0) H 07/04/19 06:30 POC ABG HCO3 13.2 (22-26 mml/L) 07/03/19 23:02 ABG HCO3 15.7 mmol/L (20.0-26.0) L 07/04/19 06:30 POC ABG Total CO2 14 (23-27mmol/L) 07/03/19 23:02 POC ABG O2 Sat 92 07/03/19 23:02 ABG O2 Saturation 98.8 % (95.0-99.0) 07/04/19 06:30 ABG O2 Content 21.7 (0.0-44) 07/04/19 06:30 POC ABG Base Excess -14 ((-2) - (+3)mmol/L) 07/03/19 23:02 ABG Base Excess -7.1 mmol/L (-2.0-3.0) L 07/04/19 06:30 ABG Hemoglobin 15.7 gm/dl (12.0-16.0) 07/04/19 06:30 ABG Carboxyhemoglobin 1.0 % (0.0-5.0) 07/04/19 06:30 ABG Methemoglobin 0.5 % (0.0-1.5) 07/04/19 06:30 VBG pH 7.174 (7.320-7.420) L* 07/03/19 17:59 97.3 % (95.0-99.0) 07/04/19 06:30 50 % 07/04/19 06:30 Sodium 137 mmol/L (137-145) 07/08/19 07:25 Potassium 4.0 mmol/L (3.6-5.0) D 07/08/19 07:25 Chloride 94.5 mmol/L (98-107) L 07/08/19 07:25 Carbon Dioxide 23 mmol/L (22-30) 07/08/19 07:25 24 mmol/L 07/08/19 07:25 BUN 22 mg/dL (7-17) H 07/08/19 07:25 1.1 mg/dL (0.7-1.2) 07/08/19 07:25 Estimated GFR > 60 ml/min 07/08/19 07:25 20 % 07/08/19 07:25 Glucose 100 mg/dL (65-100) 07/08/19 07:25 POC Glucose 90 (70-105) 07/09/19 16:28 Lactic Acid 0.80 mmol/L (0.7-2.0) 07/07/19 13:05 Calcium 9.4 mg/dL (8.4-10.2) 07/08/19 07:25 0.40 mg/dL (0.1-1.2) 07/04/19 04:02 < 0.2 mg/dL (0-0.2) 07/03/19 20:37 0.3 mg/dL 07/03/19 20:37 AST 137 units/L (5-40) H 07/04/19 04:02 ALT 224 units/L (7-56) H 07/04/19 04:02 113 units/L (35-129) 07/04/19 04:02 0.033 ng/mL (0.00-0.029) H D 07/08/19 12:28 4.80 mg/dL (0.00-1.30) H 07/04/19 08:52 NT-Pro-B Natriuret Pep 92728 pg/mL (0-900) H 07/04/19 08:52 8.0 g/dL (6.3-8.2) 07/04/19 04:02 3.9 g/dL (3.9-5) 07/04/19 04:02 1.0 % 07/04/19 04:02 Triglycerides 106 mg/dL (2-149) 07/08/19 01:03 Cholesterol 168 mg/dL (50-199) 07/08/19 01:03 121 mg/dL (50-130) 07/08/19 01:03 36 mg/dL (40-59) L 07/08/19 01:03 4.66 % 07/08/19 01:03 Plasma/Serum Alcohol < 0.01 % (0-0.07) 07/03/19 20:37 Hepatitis A IgM Ab Non-reactive (NonReactive) 07/08/19 07:25 Hep Bs Antigen Non-reactive (Negative) 07/08/19 07:25 Hep B Core IgM Ab Non-reactive (NonReactive) 07/08/19 07:25 Non-reactive (NonReactive) 07/08/19 07:25 Active Medications - Current Medications Current Medications: Generic Name Dose Route Start Last Admin Trade Name Freq PRN Reason Stop Dose Admin Al Hydrox/Mg Hydrox/Simethicone 30 ml 07/09/19 18:42 Alum-Mag Hydrox-Simeth 684-234-70xz/5ml PO Q8H PRN Indigestion Albuterol 2.5 mg 07/03/19 20:30 Proventil IH Q3H PRN Shortness Of Breath Alprazolam 0.25 mg 07/05/19 14:00 Xanax PO TID PRN Anxiety Aspirin 81 mg 07/08/19 10:00 07/10/19 10:57 Baby Aspirin PO 81 mg QDAY SHYANN Administration Carvedilol 3.125 mg 07/05/19 22:00 07/10/19 10:57 Coreg PO 3.125 mg BID SHYANN Administration Enoxaparin Sodium 40 mg 07/04/19 10:00 07/10/19 11:29 Lovenox SUB-Q Not Given QDAY SHYANN Famotidine 20 mg 07/05/19 10:00 07/10/19 10:57 Pepcid PO 20 mg DAILY SHYANN Administration Furosemide 40 mg 07/04/19 00:00 07/10/19 06:05 Lasix IV Not Given 0600,1800 SHYANN Lisinopril 2.5 mg 07/06/19 10:00 07/10/19 10:59 Zestril PO Not Given QDAY SHYANN Morphine Sulfate 2 mg 07/07/19 14:30 Morphine IV Q3H PRN Pain, Moderate (4-6) Polyethylene Glycol 17 gm 07/07/19 20:00 07/10/19 11:29 Miralax 3350 PO Not Given QDAY SHYANN Potassium Chloride 20 meq 07/08/19 10:00 07/10/19 10:58 K-Dur PO 20 meq QDAY SHYANN Administration Sodium Chloride 10 ml 07/03/19 22:00 07/09/19 21:41 Sodium Chloride Flush Syringe 10 Ml IV 10 ml BID SHYANN Administration Sodium Chloride 10 ml 07/03/19 20:30 07/05/19 09:23 Sodium Chloride Flush Syringe 10 Ml IV 10 ml PRN PRN Administration LINE FLUSH Spironolactone 25 mg 07/07/19 10:30 07/10/19 10:58 Aldactone PO Not Given QDAY SHYANN Nutrition/Malnutrition Assess - Dietary Evaluation Nutrition/Malnutrition Findings: Nutrition Notes Start: 07/08/19 13:09 Freq: Status: Active Protocol: Document 07/08/19 13:10 RM (Rec: 07/08/19 13:19 RM [id number]) Nutrition Notes Need for Assessment generated from: LOS Initial or Follow up Assessment Current Diagnosis Heart Failure Other Pertinent Diagnosis Pneu, SIRS Current Diet NPO after midnight Labs/Tests Reviewed Pertinent Medications Lasix Height 5 ft 5 in Weight 69.1 kg [place] Body Weight (kg) 56.81 BMI 25.3 Subjective/Other Information Screened for LOS. Pt stated that her appetite is "so so" and that she ate bites of her meals before NPO status. Percent of energy/protein needs met: 0%/0% Burn Absent Trauma Absent Minimum of two criteria No #1 Nutrition Diagnosis Inadequate oral intake Etiology decreased appetite As Evidenced by Signs and Symptoms pt statement that she ate bites of her meals before NPO status Is patient on ventilator? No Is Patient Ambulatory and/or Out of Bed No REE-([facility]-confined to bed) 1542.792 Calculation Used for Recommendations [facility] Additional Notes Protein Needs: 104-117g (1.5-1 .7g/kg) Fluid Needs: 1 ml/kcal Nutrition Intervention Change Diet Order: Advance diet when medically able Add Supplement/Snack (indicate name/kcal Ensure Enlive [place] 1 /protein ) daily once diet advanced Provides kCal: 350 Provides Protein (gm) 20 Goal #1 Diet advancement Anticipated Discharge Needs: Unable to determine at this time Follow-Up By: 07/12/19 Additional Comments Follow for PO and ONS intakes
--- NOTE | 2019-07-10 14:30 | Progress Note ---
Assessment and Plan Acute hypoxemic respiratory failure Acute pulmonary edema. Acute congestive heart failure exacerbation (new onset) Leukocytosis. Tobacco use disorder. Metabolic acidosis, mild. Lactic acidosis. Elevated serum transaminases. Possible occult pneumonia. History of anxiety. -For cardiac cath on Thursday -Smoking cessation counselling done at the bedside -Life vest on discharge - continue prn xanax for anxiolysis - continue to wean supplemental oxygen to keep O2 sat's > 90% - continue BIPAP prn - continue diuresis, heart failure measures - prn bronchodilators - follow clinically off AB's - VTE prophylaxis Updated patient and family at the bedside. All questions answered Subjective Date of service: 07/10/19 Principal diagnosis: Ac. hypoxemic resp failure; Ac. pulmonary edema; Acute CHF (New Onset) Interval history: Patient is seen today for: Acute hypoxemic respiratory failure; Acute pulmonary edema; Acute CHF exacerbation (new onset); Leukocytosis; Tobacco use disorder; Metabolic acidosis, mild; Lactic acidosis; Elevated serum transaminases; Possible occult pneumonia; History of anxiety. Seen and examined at bedside; 24hour events reviewed; nursing and respiratory care staff consulted; no adverse overnight events reported to me; resting peacefully in bed;anxious about cardiac cath and life vest. family is visiting. Comfortable, denies any chest pain, no shortness of breath. denies any fevers, chills, nausea or vomiting. Vitals, labs, medications, chart notes reviewed Objective Vital Signs - 12hr 07/10/19 07/10/19 07/10/19 05:53 05:56 08:26 Temperature 98.5 F 97.9 F Pulse Rate 73 89 Respiratory 18 18 Rate Blood Pressure 87/58 96/66 O2 Sat by Pulse 98 100 Oximetry 07/10/19 07/10/19 07/10/19 10:57 10:58 11:49 Temperature 98.1 F Pulse Rate Respiratory 18 Rate Blood Pressure 96/66 96/66 112/82 O2 Sat by Pulse 100 Oximetry Constitutional: no acute distress, alert Eyes: non-icteric ENT: oropharynx moist, other (mallampati 3) Neck: supple, no lymphadenopathy, no JVD Effort: normal Ascultation: Bilateral: rales (bases bilaterally) Percussion: Bilateral: not dull Cardiovascular: regular rate and rhythm, other (No R/M) Gastrointestinal: normoactive bowel sounds, soft, non-tender, non-distended Integumentary: normal Extremities: no cyanosis, no edema, pulses normal, no ischemia or petechiae Neurologic: normal mental status, non-focal exam, pupils equal and round, CN II- XII normal, motor strength normal and Psychiatric: mood appropriate, anxious CBC and BMP: 07/11/19 07:30 07/11/19 07:30 ABG, PT/INR, D-dimer: ABG POC ABG pH 7.246 (7.35-7.45) L 07/03/19 23:02 ABG pH 7.398 pH Units (7.350-7.450) 07/04/19 06:30 POC ABG pCO2 30.4 (35-45) L 07/03/19 23:02 ABG pCO2 26.1 mm Hg 07/04/19 06:30 POC ABG pO2 75 (80-105) L 07/03/19 23:02 ABG pO2 141.7 mm Hg (80.0-90.0) H 07/04/19 06:30 POC ABG HCO3 13.2 (22-26 mml/L) 07/03/19 23:02 POC ABG Total CO2 14 (23-27mmol/L) 07/03/19 23:02 POC ABG O2 Sat 92 07/03/19 23:02 ABG O2 Saturation 98.8 % (95.0-99.0) 07/04/19 06:30 PT/INR, D-dimer PT 13.0 Sec. (12.2-14.9) 07/07/19 09:49 INR 1.01 (0.87-1.13) 07/07/19 09:49 Abnormal lab findings: Abnormal Labs 07/03/19 07/03/19 07/03/19 17:54 17:54 17:54 WBC 12.6 H Hgb 15.4 H Hct 46.0 H MCV 99 H MCH 33 H MCHC RDW Lymph % (Auto) 7.9 L Lymph # 1.0 L Seg Neutrophils % 86.6 H Seg Neutrophils # 11.0 H PT INR POC ABG pH POC ABG pCO2 POC ABG pO2 ABG pO2 ABG HCO3 ABG Base Excess VBG pH Sodium Potassium Chloride Carbon Dioxide 16 L BUN Glucose 210 H POC Glucose Lactic Acid 7.90 H* AST 226 H ALT 272 H Troponin T C-Reactive Protein NT-Pro-B Natriuret Pep Total Protein HDL Cholesterol 07/03/19 07/03/19 07/03/19 17:59 18:41 19:15 WBC Hgb Hct MCV MCH MCHC RDW Lymph % (Auto) Lymph # Seg Neutrophils % Seg Neutrophils # PT INR POC ABG pH 7.305 L POC ABG pCO2 POC ABG pO2 77 L ABG pO2 ABG HCO3 ABG Base Excess VBG pH 7.174 L* Sodium Potassium Chloride Carbon Dioxide BUN Glucose POC Glucose Lactic Acid 6.90 H* AST ALT Troponin T C-Reactive Protein NT-Pro-B Natriuret Pep Total Protein HDL Cholesterol 07/03/19 07/03/19 07/03/19 20:37 20:37 21:51 WBC Hgb Hct MCV MCH MCHC RDW Lymph % (Auto) Lymph # Seg Neutrophils % Seg Neutrophils # PT INR POC ABG pH POC ABG pCO2 POC ABG pO2 ABG pO2 ABG HCO3 ABG Base Excess VBG pH Sodium Potassium Chloride Carbon Dioxide BUN Glucose POC Glucose Lactic Acid 6.50 H* 5.80 H* AST 257 H ALT 283 H Troponin T C-Reactive Protein NT-Pro-B Natriuret Pep Total Protein 8.3 H HDL Cholesterol 07/03/19 07/04/19 07/04/19 23:02 00:46 04:02 WBC 15.2 H Hgb 16.6 H Hct 47.9 H MCV MCH 34 H MCHC 35 H RDW Lymph % (Auto) 7.1 L Lymph # 1.1 L Seg Neutrophils % 88.6 H Seg Neutrophils # 13.5 H PT INR POC ABG pH 7.246 L POC ABG pCO2 30.4 L POC ABG pO2 75 L ABG pO2 ABG HCO3 ABG Base Excess VBG pH Sodium Potassium Chloride Carbon Dioxide BUN Glucose POC Glucose Lactic Acid 8.00 H* AST ALT Troponin T C-Reactive Protein NT-Pro-B Natriuret Pep Total Protein HDL Cholesterol 07/04/19 07/04/19 07/04/19 04:02 06:30 07:52 WBC Hgb Hct MCV MCH MCHC RDW Lymph % (Auto) Lymph # Seg Neutrophils % Seg Neutrophils # PT INR POC ABG pH POC ABG pCO2 POC ABG pO2 ABG pO2 141.7 H ABG HCO3 15.7 L ABG Base Excess -7.1 L VBG pH Sodium Potassium Chloride Carbon Dioxide 17 L BUN 18 H Glucose 138 H POC Glucose Lactic Acid 4.10 H* AST 137 H ALT 224 H Troponin T C-Reactive Protein NT-Pro-B Natriuret Pep Total Protein HDL Cholesterol 07/04/19 07/04/19 07/04/19 08:52 08:52 08:52 WBC Hgb Hct MCV MCH MCHC RDW Lymph % (Auto) Lymph # Seg Neutrophils % Seg Neutrophils # PT INR POC ABG pH POC ABG pCO2 POC ABG pO2 ABG pO2 ABG HCO3 ABG Base Excess VBG pH Sodium Potassium Chloride Carbon Dioxide BUN Glucose POC Glucose Lactic Acid 3.60 H* AST ALT Troponin T C-Reactive Protein 4.80 H NT-Pro-B Natriuret Pep 11751 H Total Protein HDL Cholesterol 07/05/19 07/05/19 07/05/19 13:01 13:01 14:49 WBC Hgb Hct MCV MCH MCHC RDW Lymph % (Auto) Lymph # Seg Neutrophils % Seg Neutrophils # PT INR POC ABG pH POC ABG pCO2 POC ABG pO2 ABG pO2 ABG HCO3 ABG Base Excess VBG pH Sodium 135 L Potassium Chloride 96.1 L Carbon Dioxide BUN 28 H Glucose POC Glucose Lactic Acid 2.40 H* 3.10 H* AST ALT Troponin T C-Reactive Protein NT-Pro-B Natriuret Pep Total Protein HDL Cholesterol 07/07/19 07/07/19 07/07/19 04:32 04:32 04:32 WBC Hgb Hct MCV MCH 34 H MCHC 35 H RDW 13.1 L Lymph % (Auto) 40.4 H Lymph # Seg Neutrophils % Seg Neutrophils # PT 41.6 H INR 4.42 H POC ABG pH POC ABG pCO2 POC ABG pO2 ABG pO2 ABG HCO3 ABG Base Excess VBG pH Sodium 135 L Potassium 3.2 L D Chloride 94.5 L Carbon Dioxide BUN 29 H Glucose 107 H POC Glucose Lactic Acid AST ALT Troponin T C-Reactive Protein NT-Pro-B Natriuret Pep Total Protein HDL Cholesterol 07/07/19 07/07/19 07/07/19 14:19 17:42 19:45 WBC Hgb Hct MCV MCH MCHC RDW Lymph % (Auto) Lymph # Seg Neutrophils % Seg Neutrophils # PT INR POC ABG pH POC ABG pCO2 POC ABG pO2 ABG pO2 ABG HCO3 ABG Base Excess VBG pH Sodium Potassium Chloride Carbon Dioxide BUN Glucose POC Glucose 139 H 109 H Lactic Acid AST ALT Troponin T 0.094 H C-Reactive Protein NT-Pro-B Natriuret Pep Total Protein HDL Cholesterol 07/07/19 07/08/19 07/08/19 21:04 01:03 05:19 WBC Hgb Hct MCV MCH MCHC RDW Lymph % (Auto) Lymph # Seg Neutrophils % Seg Neutrophils # PT INR POC ABG pH POC ABG pCO2 POC ABG pO2 ABG pO2 ABG HCO3 ABG Base Excess VBG pH Sodium Potassium Chloride Carbon Dioxide BUN Glucose POC Glucose 108 H Lactic Acid AST ALT Troponin T 0.069 H D 0.073 H C-Reactive Protein NT-Pro-B Natriuret Pep Total Protein HDL Cholesterol 36 L 07/08/19 07/08/19 07/08/19 07:25 12:28 20:54 WBC Hgb Hct MCV MCH MCHC RDW Lymph % (Auto) Lymph # Seg Neutrophils % Seg Neutrophils # PT INR POC ABG pH POC ABG pCO2 POC ABG pO2 ABG pO2 ABG HCO3 ABG Base Excess VBG pH Sodium Potassium Chloride 94.5 L Carbon Dioxide BUN 22 H Glucose POC Glucose 128 H Lactic Acid AST ALT Troponin T 0.033 H D C-Reactive Protein NT-Pro-B Natriuret Pep Total Protein HDL Cholesterol Allied health notes reviewed: nursing
[2019-07-10] MEDS ORDERED: SODIUM CHLORIDE 0.9% 500 ML 500 ML IV SCH (16:00)
--- NOTE | 2019-07-10 17:12 | Progress Note ---
Assessment and Plan - Patient Problems (1) Congestive heart failure (CHF) Current Visit: Yes Status: Acute Plan to address problem: Congestive heart failure fluid overload are optimized. A cardiac catheterization has been recommended for tomorrow morning. Subjective Date of service: 07/10/19 Principal diagnosis: Ac. hypoxemic resp failure; Ac. pulmonary edema; Acute CHF (New Onset) Interval history: Patient is comfortable, no cardiac complaints. Looks and feels better. Objective Vital Signs Temp Pulse Pulse Resp BP BP Pulse Ox 07/10/19 15:51 98.9 F 84 18 94/64 100 07/10/19 11:49 98.1 F 18 112/82 100 07/10/19 10:58 96/66 07/10/19 10:57 96/66 07/10/19 08:26 97.9 F 89 18 96/66 100 07/10/19 05:56 98.5 F 07/10/19 05:53 73 18 87/58 98 07/09/19 23:52 98 07/09/19 23:00 98.5 F 07/09/19 22:59 64 18 96/57 99 07/09/19 22:20 74 18 100 07/09/19 21:42 74 94/54 07/09/19 20:07 98.3 F 74 16 94/54 100 07/09/19 20:04 67 - Physical Examination General: No Apparent Distress HEENT: Positive: PERRL Neck: Positive: trachea midline Cardiac: Positive: Reg Rate and Rhythm Lungs: Positive: Decreased Breath Sounds Neuro: Positive: Grossly Intact Abdomen: Positive: Soft Skin: Positive: Clear Extremities: Absent: edema - Allied health notes Allied health notes reviewed: nursing
[2019-07-10] MEDS: NEOMY 3.5 MG/BACIT 400 UNITS/POLY B 5000 UNITS/GM OINT PACKET TP SCH (22:26)
[2019-07-11] MEDS: FUROSEMIDE 40 MG/4 ML INJ IV SCH (06:51)
[2019-07-11 08:28] LABS: Basophils % (Auto) 0.8 % (0.0-1.8); Eosinophils # (Auto) 0.1 K/mm3 (0.0-0.4); Hematocrit 38.2 % (30.3-42.9); Hemoglobin 13.1 gm/dl (10.1-14.3); Lymphocytes # (Auto) 1.4 K/mm3 (1.2-5.4); Lymphocytes % (Auto) 30.3 % (13.4-35.0); Mean Corpuscular HGB Conc 34 % (30-34); Mean Corpuscular Volume 97 fl (79-97); Monocytes # (Auto) 0.7 K/mm3 (0.0-0.8); Monocytes % (Auto) 14.5 % (0.0-7.3); Platelet Count 191 K/mm3 (140-440); Red Blood Count 3.93 M/mm3 (3.65-5.03); Red Cell Distribution Width 12.6 % (13.2-15.2)
[2019-07-11 08:39] LABS: INR 1.02 (0.87-1.13)
[2019-07-11 08:40] LABS: Partial Thromboplastin Time 27.2 Sec. (24.2-36.6)
[2019-07-11 08:44] LABS: BUN/Creatinine Ratio 19; Blood Urea Nitrogen 19 mg/dL (7-17); Calcium 9.2 mg/dL (8.4-10.2); Hemolysis Index 25
[2019-07-11] MEDS: NEOMY 3.5 MG/BACIT 400 UNITS/POLY B 5000 UNITS/GM OINT PACKET TP SCH (08:58)
[2019-07-11] MEDS: SPIRONOLACTONE 25 MG TAB PO SCH (09:01)
[2019-07-11] MEDS: ASPIRIN 81 MG TAB CHEW PO SCH (09:01)
[2019-07-11] MEDS: POLYETHYLENE GLYCOL 3350 17 GM POWDER PO SCH (09:01)
[2019-07-11] MEDS: POTASSIUM CHLORIDE ER 20 MEQ TAB PO SCH (09:01)
[2019-07-11] MEDS: carvediloL 3.125 MG TAB PO SCH (09:01)
[2019-07-11] MEDS: ENOXAPARIN 40 MG/0.4 ML INJ SUB-Q SCH (09:02)
[2019-07-11] MEDS: FAMOTIDINE 20 MG TAB PO SCH (09:02)
[2019-07-11] MEDS: LISINOPRIL 5 MG TAB PO SCH (09:02)
[2019-07-11] MEDS ORDERED: ASPIRIN EC 325 MG TAB PO ONE ×2 (13:10→14:09)
--- NOTE | 2019-07-11 13:12 | Progress Note ---
Assessment and Plan Patient went to clinical laboratory medical director and undergoing cardiac catherization. O2 saturation 99%. BIPAP stand by in the room. - Patient Problems (1) Respiratory failure Current Visit: Yes Status: Acute Qualifiers: Chronicity: acute Respiratory failure complication: hypoxia Qualified Code(s): J96.01 - Acute respiratory failure with hypoxia Plan to address problem: Likely from CHF. It is improving. Patient resting on 2L O2 NC. O2 saturation 99%. BIPAP standby in the room. Albuterol aerosol treatment s q 6 hrs PRN for shortness of breath. Continue S/C Lovenox. Continue Famotidine. (2) SOB (shortness of breath) Current Visit: Yes Status: Acute Plan to address problem: Likely from CHF. It is improving. Patient resting on 2L O2 NC. O2 saturation 99%. (3) Congestive heart failure (CHF) Current Visit: Yes Status: Acute Plan to address problem: Management as per cardiology. Patient undergoing cardiac catheterization. Subjective Date of service: 07/11/19 Principal diagnosis: Ac. hypoxemic resp failure; Ac. pulmonary edema; Acute CHF (New Onset) Interval history: Patient went to clinical laboratory medical director and undergoing cardiac catherization. O2 saturation 99%. BIPAP stand by in the room. Objective Vital Signs - 12hr 07/11/19 07/11/19 07/11/19 04:13 07:58 09:44 Temperature 98.2 F 98.3 F Pulse Rate 79 84 Respiratory 18 18 18 Rate Blood Pressure 114/77 112/65 O2 Sat by Pulse 100 100 99 Oximetry 07/11/19 10:00 Temperature Pulse Rate 66 Respiratory Rate Blood Pressure O2 Sat by Pulse Oximetry Constitutional: no acute distress, alert Eyes: non-icteric ENT: oropharynx moist, other (mallampati 3) Neck: supple, no lymphadenopathy, no JVD Effort: normal Ascultation: Bilateral: rales (bases bilaterally) Percussion: Bilateral: not dull Cardiovascular: regular rate and rhythm, other (No R/M) Gastrointestinal: normoactive bowel sounds, soft, non-tender, non-distended Integumentary: normal Extremities: no cyanosis, no edema, pulses normal, no ischemia or petechiae Neurologic: normal mental status, non-focal exam, pupils equal and round, CN II- XII normal, motor strength normal and Psychiatric: mood appropriate, anxious CBC and BMP: 07/11/19 07:30 07/11/19 07:30 ABG, PT/INR, D-dimer: ABG POC ABG pH 7.246 (7.35-7.45) L 07/03/19 23:02 ABG pH 7.398 pH Units (7.350-7.450) 07/04/19 06:30 POC ABG pCO2 30.4 (35-45) L 07/03/19 23:02 ABG pCO2 26.1 mm Hg 07/04/19 06:30 POC ABG pO2 75 (80-105) L 07/03/19 23:02 ABG pO2 141.7 mm Hg (80.0-90.0) H 07/04/19 06:30 POC ABG HCO3 13.2 (22-26 mml/L) 07/03/19 23:02 POC ABG Total CO2 14 (23-27mmol/L) 07/03/19 23:02 POC ABG O2 Sat 92 07/03/19 23:02 ABG O2 Saturation 98.8 % (95.0-99.0) 07/04/19 06:30 PT/INR, D-dimer PT 13.1 Sec. (12.2-14.9) 07/11/19 07:30 INR 1.02 (0.87-1.13) 07/11/19 07:30 Abnormal lab findings: Abnormal Labs 07/03/19 07/03/19 07/03/19 17:54 17:54 17:54 WBC 12.6 H Hgb 15.4 H Hct 46.0 H MCV 99 H MCH 33 H MCHC RDW Lymph % (Auto) 7.9 L [place] % (Auto) Lymph # 1.0 L Seg Neutrophils % 86.6 H Seg Neutrophils # 11.0 H PT INR POC ABG pH POC ABG pCO2 POC ABG pO2 ABG pO2 ABG HCO3 ABG Base Excess VBG pH Sodium Potassium Chloride Carbon Dioxide 16 L BUN Glucose 210 H POC Glucose Lactic Acid 7.90 H* AST 226 H ALT 272 H Troponin T C-Reactive Protein NT-Pro-B Natriuret Pep Total Protein HDL Cholesterol 07/03/19 07/03/19 07/03/19 17:59 18:41 19:15 WBC Hgb Hct MCV MCH MCHC RDW Lymph % (Auto) [place] % (Auto) Lymph # Seg Neutrophils % Seg Neutrophils # PT INR POC ABG pH 7.305 L POC ABG pCO2 POC ABG pO2 77 L ABG pO2 ABG HCO3 ABG Base Excess VBG pH 7.174 L* Sodium Potassium Chloride Carbon Dioxide BUN Glucose POC Glucose Lactic Acid 6.90 H* AST ALT Troponin T C-Reactive Protein NT-Pro-B Natriuret Pep Total Protein HDL Cholesterol 07/03/19 07/03/19 07/03/19 20:37 20:37 21:51 WBC Hgb Hct MCV MCH MCHC RDW Lymph % (Auto) [place] % (Auto) Lymph # Seg Neutrophils % Seg Neutrophils # PT INR POC ABG pH POC ABG pCO2 POC ABG pO2 ABG pO2 ABG HCO3 ABG Base Excess VBG pH Sodium Potassium Chloride Carbon Dioxide BUN Glucose POC Glucose Lactic Acid 6.50 H* 5.80 H* AST 257 H ALT 283 H Troponin T C-Reactive Protein NT-Pro-B Natriuret Pep Total Protein 8.3 H HDL Cholesterol 07/03/19 07/04/19 07/04/19 23:02 00:46 04:02 WBC 15.2 H Hgb 16.6 H Hct 47.9 H MCV MCH 34 H MCHC 35 H RDW Lymph % (Auto) 7.1 L [place] % (Auto) Lymph # 1.1 L Seg Neutrophils % 88.6 H Seg Neutrophils # 13.5 H PT INR POC ABG pH 7.246 L POC ABG pCO2 30.4 L POC ABG pO2 75 L ABG pO2 ABG HCO3 ABG Base Excess VBG pH Sodium Potassium Chloride Carbon Dioxide BUN Glucose POC Glucose Lactic Acid 8.00 H* AST ALT Troponin T C-Reactive Protein NT-Pro-B Natriuret Pep Total Protein HDL Cholesterol 07/04/19 07/04/19 07/04/19 04:02 06:30 07:52 WBC Hgb Hct MCV MCH MCHC RDW Lymph % (Auto) [place] % (Auto) Lymph # Seg Neutrophils % Seg Neutrophils # PT INR POC ABG pH POC ABG pCO2 POC ABG pO2 ABG pO2 141.7 H ABG HCO3 15.7 L ABG Base Excess -7.1 L VBG pH Sodium Potassium Chloride Carbon Dioxide 17 L BUN 18 H Glucose 138 H POC Glucose Lactic Acid 4.10 H* AST 137 H ALT 224 H Troponin T C-Reactive Protein NT-Pro-B Natriuret Pep Total Protein HDL Cholesterol 07/04/19 07/04/19 07/04/19 08:52 08:52 08:52 WBC Hgb Hct MCV MCH MCHC RDW Lymph % (Auto) [place] % (Auto) Lymph # Seg Neutrophils % Seg Neutrophils # PT INR POC ABG pH POC ABG pCO2 POC ABG pO2 ABG pO2 ABG HCO3 ABG Base Excess VBG pH Sodium Potassium Chloride Carbon Dioxide BUN Glucose POC Glucose Lactic Acid 3.60 H* AST ALT Troponin T C-Reactive Protein 4.80 H NT-Pro-B Natriuret Pep 11547 H Total Protein HDL Cholesterol 07/05/19 07/05/19 07/05/19 13:01 13:01 14:49 WBC Hgb Hct MCV MCH MCHC RDW Lymph % (Auto) [place] % (Auto) Lymph # Seg Neutrophils % Seg Neutrophils # PT INR POC ABG pH POC ABG pCO2 POC ABG pO2 ABG pO2 ABG HCO3 ABG Base Excess VBG pH Sodium 135 L Potassium Chloride 96.1 L Carbon Dioxide BUN 28 H Glucose POC Glucose Lactic Acid 2.40 H* 3.10 H* AST ALT Troponin T C-Reactive Protein NT-Pro-B Natriuret Pep Total Protein HDL Cholesterol 07/07/19 07/07/19 07/07/19 04:32 04:32 04:32 WBC Hgb Hct MCV MCH 34 H MCHC 35 H RDW 13.1 L Lymph % (Auto) 40.4 H [place] % (Auto) Lymph # Seg Neutrophils % Seg Neutrophils # PT 41.6 H INR 4.42 H POC ABG pH POC ABG pCO2 POC ABG pO2 ABG pO2 ABG HCO3 ABG Base Excess VBG pH Sodium 135 L Potassium 3.2 L D Chloride 94.5 L Carbon Dioxide BUN 29 H Glucose 107 H POC Glucose Lactic Acid AST ALT Troponin T C-Reactive Protein NT-Pro-B Natriuret Pep Total Protein HDL Cholesterol 07/07/19 07/07/19 07/07/19 14:19 17:42 19:45 WBC Hgb Hct MCV MCH MCHC RDW Lymph % (Auto) [place] % (Auto) Lymph # Seg Neutrophils % Seg Neutrophils # PT INR POC ABG pH POC ABG pCO2 POC ABG pO2 ABG pO2 ABG HCO3 ABG Base Excess VBG pH Sodium Potassium Chloride Carbon Dioxide BUN Glucose POC Glucose 139 H 109 H Lactic Acid AST ALT Troponin T 0.094 H C-Reactive Protein NT-Pro-B Natriuret Pep Total Protein HDL Cholesterol 07/07/19 07/08/19 07/08/19 21:04 01:03 05:19 WBC Hgb Hct MCV MCH MCHC RDW Lymph % (Auto) [place] % (Auto) Lymph # Seg Neutrophils % Seg Neutrophils # PT INR POC ABG pH POC ABG pCO2 POC ABG pO2 ABG pO2 ABG HCO3 ABG Base Excess VBG pH Sodium Potassium Chloride Carbon Dioxide BUN Glucose POC Glucose 108 H Lactic Acid AST ALT Troponin T 0.069 H D 0.073 H C-Reactive Protein NT-Pro-B Natriuret Pep Total Protein HDL Cholesterol 36 L 07/08/19 07/08/19 07/08/19 07:25 12:28 20:54 WBC Hgb Hct MCV MCH MCHC RDW Lymph % (Auto) [place] % (Auto) Lymph # Seg Neutrophils % Seg Neutrophils # PT INR POC ABG pH POC ABG pCO2 POC ABG pO2 ABG pO2 ABG HCO3 ABG Base Excess VBG pH Sodium Potassium Chloride 94.5 L Carbon Dioxide BUN 22 H Glucose POC Glucose 128 H Lactic Acid AST ALT Troponin T 0.033 H D C-Reactive Protein NT-Pro-B Natriuret Pep Total Protein HDL Cholesterol 07/11/19 07/11/19 07:30 07:30 WBC Hgb Hct MCV MCH 33 H MCHC RDW 12.6 L Lymph % (Auto) [place] % (Auto) 14.5 H Lymph # Seg Neutrophils % Seg Neutrophils # PT INR POC ABG pH POC ABG pCO2 POC ABG pO2 ABG pO2 ABG HCO3 ABG Base Excess VBG pH Sodium 136 L Potassium 5.1 H D Chloride 96.3 L Carbon Dioxide BUN 19 H Glucose 102 H POC Glucose Lactic Acid AST ALT Troponin T C-Reactive Protein NT-Pro-B Natriuret Pep Total Protein HDL Cholesterol Allied health notes reviewed: nursing
[2019-07-11] MEDS ORDERED: HEPARIN/NS 5000 UNIT/500ML 1,500 ML IR ONE (13:24)
[2019-07-11] MEDS ORDERED: VERAPAMIL 5 MG/2 ML INJ ONE (13:24)
[2019-07-11] MEDS ORDERED: HEPARIN 10,000 UNITS/10 ML VIAL ONE (13:24)
[2019-07-11] MEDS ORDERED: LIDOCAINE (2%) 20 MG/1 ML VIAL 20 ML MDV INFILTRATI ONE (13:25)
[2019-07-11] MEDS ORDERED: NITROGLYCERIN SYRINGE 6 ML ONE (13:25)
[2019-07-11] MEDS ORDERED: SODIUM CHLORIDE 0.9% 500 ML 500 ML ONE (13:25)
[2019-07-11] MEDS ORDERED: MIDAZOLAM 2 MG/2 ML INJ ONE (13:26)
[2019-07-11] MEDS ORDERED: fentaNYL 100 MCG/2 ML INJ ONE (13:26)
--- NOTE | 2019-07-11 14:17 | Event Note ---
Date: 07/11/19 Left heart catheterization was completed via the right radial approach, no complications. We found, essentially angiographically normal coronary arteries. Most significant finding is the near-complete resolution of the patient's presenting cardiomyopathy. On the left ventriculogram, the ejection fraction today is >55%. Patient is stable for cardiac discharge, continue current treatment with afterload agents, beta blockers and oral antiplatelet therapy. Follow-up in my office in one week.
--- NOTE | 2019-07-11 14:37 | Cardiac Catherization Report ---
CARDIAC CATHETERIZATION REPORT REASON FOR PROCEDURE: Congestive heart failure. PROCEDURES: 1. Left heart catheterization. 2. Selective left and right coronary angiography. 3. Left ventricle angiography. 4. Sedation time, start 1345, end 1357 hours. DESCRIPTION OF PROCEDURE: The patient was prepped and draped in a sterile fashion after informed consent. The right radial cath site was prepped and draped after a negative Antoine's test. The right radial artery was entered using Seldinger technique followed by placement of a 6-L[place]ian hydrophilic sheath. Routine radial cocktail was administered via the sheath. Left coronary angiography was performed using a #3.5 left Oksana catheter. A #4 right Oksana was used for right coronary angiography. A pigtail catheter was used for left ventricle angiography. The catheters were removed, sheath removed, and hemostasis achieved using manual compression. The patient was returned to the postprocedure unit in stable condition. There were no complications. FINDINGS: HEMODYNAMICS: Left ventricular end-diastolic pressure was 10. Ascending aortic pressure 104/63. There was no significant pressure gradient on pullback across the aortic valve. CORONARY ANGIOGRAPHY: The left main coronary artery was angiographically normal. The left anterior descending artery contained mild luminal irregularities, but otherwise essentially angiographically normal. The circumflex artery and its obtuse marginal branches were similarly free of significant disease. The right coronary artery was a relatively small caliber, but dominant vessel, also angiographically normal. Left ventricular systolic function was within normal limits, ejection fraction estimated at 55%. CONCLUSION: 1. No significant coronary artery disease, essentially, angiographically normal coronary arteries. 2. Well preserved left ventricular systolic function with ejection fraction 55%. RECOMMENDATION: Risk factor modification and medical therapy. JOB# [id number] CA/NTS
[2019-07-11] MEDS ORDERED: SODIUM CHLORIDE 0.9% 1000 ML 1,000 ML IV SCH (15:00)
--- NOTE | 2019-07-11 15:56 | Discharge Summary ---
Providers - Providers Date of Admission: 07/03/19 20:30 Date of discharge: 07/11/19 Attending physician: SANJAY ACUNA 07/03/19 20:51 Consult to Physician [CONS] Routine Comment: Consulting Provider: CHRISTOPHER DELGADO Physician Instructions: Reason For Exam: respiratory failure 07/04/19 16:37 Physical Therapy Evaluation and Treat [CONS] Routine Comment: Reason For Exam: endurance building 07/04/19 17:13 Consult to Physician [CONS] Routine Comment: Consulting Provider: JAZZ LANE Physician Instructions: Reason For Exam: New onset CHF (EF 10-15%) 07/11/19 14:19 Consult to Cardiac Rehabilitation [CONS] Routine Reason For Exam: Cardiac Rehab Evaluation Primary care physician: [facility] Hospitalization Condition: Good Pertinent studies: Echocardiogram which show ejection fraction 10-15%. Address thallium unremarkable. Left heart catheterization which show complete resolution of cardiomyopathy ejection fraction greater than 55%. Disposition: TO HOME OR SELFCARE - Discharge Diagnoses (1) Congestive heart failure (CHF) Status: Acute Comment: Patient left heart cath show complete resolution of her heart failure. May be related to viral versus stress heart. Patient will be discharged with TRICIA inhibitor beta nacho and antiplatelet medication. At present does not need diuretic. (2) Respiratory failure Status: Acute Qualifiers: Chronicity: acute Respiratory failure complication: hypoxia Qualified Code(s): J96.01 - Acute respiratory failure with hypoxia Comment: was secondary to CHF.now is all the diuresis. Now has regained ejection fraction. No need for diuretics. (3) Chest pain Status: Resolved (4) HTN (hypertension) Status: Acute Comment: Very well controlled continue TRICIA inhibitor and beta nacho. Core Measure Documentation - Palliative Care Palliative Care/ Comfort Measures: Not Applicable - Core Measures Any of the following diagnoses?: heart failure - Heart Failure Discharge Requirements TRICIA/ARB for LVSD if EF <40%: Yes Beta ncaho at discharge: Yes Exam - Constitutional Vitals: Temp Pulse Resp BP Pulse Ox 98.3 F 66 18 112/65 99 07/11/19 09:44 07/11/19 10:00 07/11/19 09:44 07/11/19 09:44 07/11/19 09:44 General appearance: Present: no acute distress, well-nourished - EENT Eyes: Present: PERRL ENT: hearing intact, clear oral mucosa - Neck Neck: Present: supple, normal ROM - Respiratory Respiratory effort: normal Respiratory: bilateral: CTA - Cardiovascular Heart Sounds: Present: S1 & S2. Absent: rub, click - Extremities Extremities: pulses symmetrical, No edema Peripheral Pulses: within normal limits - Abdominal General gastrointestinal: Present: soft, non-tender, non-distended, normal bowel sounds Female genitourinary: Present: normal - Integumentary Integumentary: Present: clear, warm, dry - Musculoskeletal Musculoskeletal: gait normal, strength equal bilaterally - Psychiatric Psychiatric: appropriate mood/affect, intact judgment & insight - Neurologic Neurologic: CNII-XII intact, moves all extremities Plan Activity: no restrictions Weight Bearing Status: Full Weight Bearing Diet: low salt Prescriptions: Spironolactone [Aldactone] 25 mg PO QDAY #30 tablet Aspirin [Aspirin BABY CHEW TAB] 81 mg PO QDAY #30 tab.chew Carvedilol [Coreg] 3.125 mg PO BID #60 tablet ALPRAZolam [Xanax TAB] 0.25 mg PO TID PRN #20 tablet PRN Reason: Anxiety Lisinopril [Zestril TAB] 2.5 mg PO QDAY #30 tablet
[2019-07-11 18:37] VITALS: BP 106/78
== END 2019-07-11 20:00 | disposition home or self-care (01) | DRG 286 ==
LOC: ED 17:28 → CC1 20:30 → 4A 07-05 21:20
PROVIDERS: ADMIT Internal Medicine; ATTEND Internal Medicine
PROC: 5A09357 Assistance with Respiratory Ventilation, Less than 24 Consecutive Hours, Continuous Positive Airway Pressure (ICD-10-PCS; 2019-07-03)
PROC: 4A033R1 Measurement of Arterial Saturation, Peripheral, Percutaneous Approach (ICD-10-PCS; 2019-07-03)
PROC: 5A09357 Assistance with Respiratory Ventilation, Less than 24 Consecutive Hours, Continuous Positive Airway Pressure (ICD-10-PCS; 2019-07-04)
PROC: 5A09357 Assistance with Respiratory Ventilation, Less than 24 Consecutive Hours, Continuous Positive Airway Pressure (ICD-10-PCS; 2019-07-07)
PROC: 5A09357 Assistance with Respiratory Ventilation, Less than 24 Consecutive Hours, Continuous Positive Airway Pressure (ICD-10-PCS; 2019-07-08)
PROC: 4A023N7 Measurement of Cardiac Sampling and Pressure, Left Heart, Percutaneous Approach (ICD-10-PCS; principal; 2019-07-11)
PROC: B2111ZZ Fluoroscopy of Multiple Coronary Arteries using Low Osmolar Contrast (ICD-10-PCS; 2019-07-11)
PROC: B2151ZZ Fluoroscopy of Left Heart using Low Osmolar Contrast (ICD-10-PCS; 2019-07-11)
DX: I11.0 Hypertensive heart disease with heart failure (principal); I50.21 Acute systolic (congestive) heart failure; J96.01 Acute respiratory failure with hypoxia; J18.1 Lobar pneumonia, unspecified organism; E87.2 Acidosis; R65.10 Systemic inflammatory response syndrome (SIRS) of non-infectious origin without acute organ dysfunction; F41.9 Anxiety disorder, unspecified; K52.9 Noninfective gastroenteritis and colitis, unspecified; I50.9 Heart failure, unspecified; Z90.710 Acquired absence of both cervix and uterus; Z79.899 Other long term (current) drug therapy
CPT/HCPCS: 36415; 36600; 71045; 71275; 78452; 80048; 80053; 80061; 80074; 80076; 80320; 82140; 82803; 82805; 82962; 83880; 84484; 85025; 85610; 85730; 86140; 87040; 87070; 87205; 93005; 93010; 93017; 93306; 93458; 94660; 94760; 96365; 96375; G0378; A6250; A9502; C1894; G0480; J0692; J1644; J1650; J1940; J1956; J2250; J2270; J2785; J2930; J3010; J3475; J7030; J7040; Q9967

== ENCOUNTER 2019-07-12 17:10 | Emergency (ER) | payer MEDICARE ==
[2019-07-12] MEDS ORDERED: methylPREDNISolone Sod Succinate 40 MG/1 ML INJ IV ONE (17:23)
[2019-07-12] MEDS ORDERED: diphenhydrAMINE 50 MG/ML VIAL IV ONE ×2 (17:23→21:06)
--- NOTE | 2019-07-12 17:23 | Event Note ---
ED Screening Note Date of service: 07/12/19 Time: 17:18 ED Screening Note: 54 y o female Return to Ed for allergic reaction after taking medication that was rx to her after hospital d/c yesterday generlized hives all over body, was told to come toER This initial assessment/diagnostic orders/clinical plan/treatment(s) is/are subject to change based on patients health status, clinical progression and re- assessment by fellow clinical providers in the ED. Further treatment and workup at subsequent clinical providers discretion. Patient/guardian urged not to elope from the ED as their condition may be serious if not clinically assessed and managed. Initial orders include: main side Eval
[2019-07-12] MEDS ORDERED: FAMOTIDINE 20 MG/2 ML INJ IV ONE ×2 (17:24→21:06)
[2019-07-12 18:06] LABS: Basophils % (Auto) 0.7 % (0.0-1.8); Eosinophils # (Auto) 0.1 K/mm3 (0.0-0.4); Eosinophils % (Auto) 2.3 % (0.0-4.3); Hemoglobin 13.9 gm/dl (10.1-14.3); Lymphocytes # (Auto) 1.5 K/mm3 (1.2-5.4); Lymphocytes % (Auto) 25.8 % (13.4-35.0); Mean Corpuscular HGB Conc 34 % (30-34); Mean Corpuscular Volume 98 fl (79-97); Monocytes # (Auto) 0.5 K/mm3 (0.0-0.8); Platelet Count 244 K/mm3 (140-440); Red Blood Count 4.18 M/mm3 (3.65-5.03); Red Cell Distribution Width 12.8 % (13.2-15.2)
[2019-07-12 18:22] LABS: BUN/Creatinine Ratio 17; Blood Urea Nitrogen 19 mg/dL (7-17); Calcium 9.3 mg/dL (8.4-10.2); Hemolysis Index 3
[2019-07-12] MEDS ORDERED: diphenhydrAMINE 25 MG CAP PO ONE (20:53)
[2019-07-12] MEDS ORDERED: methylPREDNISolone Sod Succinate 125 MG/2 ML INJ IM ONE (20:53)
[2019-07-12] MEDS ORDERED: FAMOTIDINE 20 MG TAB PO ONE (20:53)
[2019-07-12] MEDS ORDERED: methylPREDNISolone Sod Succinate 125 MG/2 ML INJ IV ONE (21:06)
[2019-07-12] MEDS ORDERED: SODIUM CHLORIDE 0.9% 1000 ML 1,000 ML IV ONE (23:33)
[2019-07-12] MEDS ORDERED: SODIUM CHLORIDE 0.9% 1000 ML 1,000 ML ONE (23:36)
--- NOTE | 2019-07-13 01:25 | Emergency Department Report ---
ED Allergic Reaction HPI - General Chief complaint: Allergic Reaction Stated complaint: ALLERGIC REACTION Time Seen by Provider: 07/12/19 17:17 Source: patient, family Mode of arrival: Wheelchair Limitations: No Limitations - History of Present Illness Initial Comments: Patient is a 54-year-old [place] Female with a history of recent diagnosis of CHF presented to the ED with acute onset of persistent itchy erythematous maculopapular urticarial rashes diffusely for the last 4 hours. Patient states that she is currently taking lisinopril, carvedilol, spironolactone and aspirin. Patient denies swollen lips, swollen tongue, dysphagia, dysphonia, shortness of breath, fever, chills, cough, nausea, vomiting, diarrhea or abdominal pain or facial swelling. Patient states that she contacted the pharmacy and was told that the most likely etiology of the sinuses may be lisinopril. Patient was advised to come to the ED for evaluation. MD Complaint: allergic reaction, hives, other (diffuse itchy erythematous maculopapular urticaria rashes) -: Sudden, hour(s) (4) Exposure: medication Symptoms: rash, itching. denies: facial swelling, lip swelling, difficulty swallowing, difficulty breathing, orolingual swelling, hoarseness, syncopy, dizziness, nausea, vomiting, other, abdominal pain Severity: moderate Treatment Prior to Arrival: other (Lisinopril) Previous Allergy History: none - Related Data Previous Rx's Medication Instructions Recorded Last Taken Type ALPRAZolam [Xanax TAB] 0.25 mg PO TID PRN #20 tablet 07/11/19 Unknown Rx Aspirin [Aspirin BABY CHEW TAB] 81 mg PO QDAY #30 tab.chew 07/11/19 Unknown Rx Carvedilol [Coreg] 3.125 mg PO BID #60 tablet 07/11/19 Unknown Rx Lisinopril [Zestril TAB] 2.5 mg PO QDAY #30 tablet 07/11/19 Unknown Rx Spironolactone [Aldactone] 25 mg PO QDAY #30 tablet 07/11/19 Unknown Rx Prednisone [predniSONE 10 mg 10 mg PO .TAPER #21 tab.ds.pk 07/13/19 Unknown Rx (6-Day Pack, 21 Tabs)] diphenhydrAMINE [Benadryl CAP] 25 mg PO Q6HR PRN #30 capsule 07/13/19 Unknown Rx raNITIdine HCl [Zantac] 150 mg PO Q12H #30 tablet 07/13/19 Unknown Rx Allergies Allergy/AdvReac Type Severity Reaction Status Date / Time No Known Allergies Allergy Unverified 07/03/19 17:38 ED Review of Systems ROS: Stated complaint: ALLERGIC REACTION Other details as noted in HPI Constitutional: denies: chills, fever Eyes: denies: eye pain, eye discharge, vision change ENT: denies: ear pain, throat pain Respiratory: denies: cough, shortness of breath, wheezing Cardiovascular: denies: chest pain, palpitations Endocrine: no symptoms reported Gastrointestinal: denies: abdominal pain, nausea, diarrhea Genitourinary: denies: urgency, dysuria, discharge Musculoskeletal: denies: back pain, joint swelling, arthralgia Skin: rash, change in color, pruritus, other (diffuse erythematous maculopapular urticarial rashes). denies: lesions Neurological: denies: headache, weakness, paresthesias Psychiatric: denies: anxiety, depression Hematological/Lymphatic: denies: easy bleeding, easy bruising ED Past Medical Hx - Past Medical History Previous Medical History?: Yes Hx Hypertension: Yes (mother grandmother) Hx Congestive Heart Failure: Yes Hx Diabetes: No Hx Psychiatric Treatment: Yes (anx) Hx Asthma: No Hx COPD: No Additional medical history: anxiety - Surgical History Past Surgical History?: Yes Additional Surgical History: hysterectomy - Social History Smoking Status: Never Smoker Substance Use Type: None - Medications Home Medications: Home Medications Medication Instructions Recorded Confirmed Last Taken Type ALPRAZolam [Xanax TAB] 0.25 mg PO TID PRN #20 tablet 07/11/19 Unknown Rx Aspirin [Aspirin BABY CHEW TAB] 81 mg PO QDAY #30 tab.chew 07/11/19 Unknown Rx Carvedilol [Coreg] 3.125 mg PO BID #60 tablet 07/11/19 Unknown Rx Lisinopril [Zestril TAB] 2.5 mg PO QDAY #30 tablet 07/11/19 Unknown Rx Spironolactone [Aldactone] 25 mg PO QDAY #30 tablet 07/11/19 Unknown Rx Prednisone [predniSONE 10 mg 10 mg PO .TAPER #21 tab.ds.pk 07/13/19 Unknown Rx (6-Day Pack, 21 Tabs)] diphenhydrAMINE [Benadryl CAP] 25 mg PO Q6HR PRN #30 capsule 07/13/19 Unknown Rx raNITIdine HCl [Zantac] 150 mg PO Q12H #30 tablet 07/13/19 Unknown Rx ED Physical Exam - General Limitations: No Limitations General appearance: alert, in no apparent distress - Head Head exam: Present: atraumatic, normocephalic, normal inspection - Eye Eye exam: Present: normal appearance, PERRL, EOMI. Absent: scleral icterus, conjunctival injection, nystagmus, periorbital swelling, periorbital tenderness, other Pupils: Present: normal accommodation - ENT ENT exam: Present: normal exam, normal orophraynx, mucous membranes moist, TM's normal bilaterally, normal external ear exam - Neck Neck exam: Present: normal inspection, full ROM - Respiratory Respiratory exam: Present: normal lung sounds bilaterally. Absent: respiratory distress, wheezes, rales, rhonchi, chest wall tenderness - Cardiovascular Cardiovascular Exam: Present: regular rate, normal rhythm, normal heart sounds. Absent: systolic murmur, diastolic murmur, rubs, gallop - GI/Abdominal GI/Abdominal exam: Present: soft, normal bowel sounds. Absent: tenderness, guarding, rigid, hyperactive bowel sounds, hypoactive bowel sounds, organomegaly, bruit - Rectal Rectal exam: Present: deferred - Extremities Exam Extremities exam: Present: normal inspection, full ROM, normal capillary refill - Back Exam Back exam: Present: normal inspection, full ROM. Absent: tenderness, CVA tenderness (R), CVA tenderness (L), muscle spasm, paraspinal tenderness - Neurological Exam Neurological exam: Present: alert, oriented X3, CN II-XII intact, normal gait, reflexes normal - Psychiatric Psychiatric exam: Present: normal affect, normal mood - Skin Skin exam: Present: warm, dry, intact, rash (erythematous maculopapular urticarial rashes), erythema, urticaria ED Course Vital Signs 07/12/19 07/12/19 07/12/19 17:17 21:00 21:01 Temperature 98.8 F 98.2 F Pulse Rate 78 73 72 Respiratory 16 17 17 Rate Blood Pressure 103/64 Blood Pressure 97/67 113/76 [Left] O2 Sat by Pulse 99 100 100 Oximetry 07/12/19 07/12/1907/12/19 21:30 22:00 23:00 Temperature Pulse Rate 65 65 64 Respiratory 19 16 25 H Rate Blood Pressure 105/64 96/62 90/53 Blood Pressure [Left] O2 Sat by Pulse 100 100 99 Oximetry 07/12/19 07/13/19 07/13/19 23:30 00:00 00:12 Temperature Pulse Rate 85 63 Respiratory 37 H 33 H 20 Rate Blood Pressure 92/54 99/56 Blood Pressure [Left] O2 Sat by Pulse 99 99 Oximetry 07/13/19 07/13/19 00:30 01:00 Temperature Pulse Rate 69 72 Respiratory 17 19 Rate Blood Pressure 97/59 102/66 Blood Pressure [Left] O2 Sat by Pulse 100 100 Oximetry - Reevaluation(s) Reevaluation #1: 07/13/19 01:29 This is a 54-year-old -[place] female who presented to the ED with acute onset persistent itchy diffuse erythematous maculopapular ventricular rashes for 4 hours after taking lisinopril for the first time. Patient had been discharged from the hospital about 12 hours ago having been previously admitted for new onset CHF, and was given a prescription for lisinopril, carvedilol, spironolactone and aspirin upon discharge. Patient states that she took these medications for the first time in bed 4 hours afterwards she started having per sistent itchy erythematous maculopapular urticarial rashes throughout. In the ED, patient is alert and oriented 3, scratching herself all over due to diffuse erythematous maculopapular rash. Vital signs are stable. Patient was treated the ED with Solu-Medrol, Benadryl, and Pepcid. Patient also received normal saline 1 L IV bolus. On reevaluation, patient's itching and hives also resolved with medications. Patient resting comfortably and carrying out normal conversation with family and the provider in the room. Patient was discharged home on medications including steroids, and and advised to take carvedilol and aspirin and stopped taking spironolactone and lisinopril, and follow-up with her primary care physician as previously scheduled in the next 2-3 days. Patient was advised to return to the ED immediately if symptoms get worse. 07/13/19 01:30 ED Medical Decision Making - Lab Data Result diagrams: 07/12/19 17:34 07/12/19 17:34 - Medical Decision Making This is a 54-year-old -[place] female who presented to the ED with acute onset persistent itchy diffuse erythematous maculopapular ventricular rashes for 4 hours after taking lisinopril for the first time. Patient had been discharged from the hospital about 12 hours ago having been previously admitted for new onset CHF, and was given a prescription for lisinopril, carvedilol, spironolactone and aspirin upon discharge. Patient states that she took these medications for the first time in bed 4 hours afterwards she started having persistent itchy erythematous maculopapular urticarial rashes throughout. In the ED, patient is alert and oriented 3, scratching herself all over due to diffuse erythematous maculopapular rash. Vital signs are stable. Patient was treated the ED with Solu-Medrol, Benadryl, and Pepcid. Patient also received normal saline 1 L IV bolus. On reevaluation, patient's itching and hives also resolved with medications. Patient resting comfortably and carrying out normal conversation with family and the provider in the room. Patient was discharged home on medications including steroids, and and advised to take carvedilol and aspirin and stopped taking spironolactone and lisinopril, and follow-up with her primary care physician as previously scheduled in the next 2-3 days. Patient was advised to return to the ED immediately if symptoms get worse. - Differential Diagnosis acute allergic reaction; itching with irritation; urticaria Critical care attestation.: If time is entered above; I have spent that time in minutes in the direct care of this critically ill patient, excluding procedure time. ED Disposition Clinical Impression: Itching with irritation, Acute urticaria Acute allergic reaction Qualifiers: Encounter type: initial encounter Qualified Code(s): T78.40XA - Allergy, unspecified, initial encounter Disposition: - TO HOME OR SELFCARE Is pt being admited?: No Does the pt Need Aspirin: No Condition: Stable Instructions: Urticaria (ED), Itchy Skin (ED), Allergies (ED) Additional Instructions: Take medications with food, drink plenty of fluids and follow-up with your primary care physician in 3-5 days for reevaluation. Return to the ED immediately if symptoms get worse. Prescriptions: diphenhydrAMINE [Benadryl CAP] 25 mg PO Q6HR PRN #30 capsule PRN Reason: Itching Prednisone [predniSONE 10 mg (6-Day Pack, 21 Tabs)] 10 mg PO .TAPER #21 tab.ds.pk raNITIdine HCl [Zantac] 150 mg PO Q12H #30 tablet Referrals: SANJAY ACUNA MD [Staff Physician] - 3-5 Days Time of Disposition: 01:23 Print Language: CITIZEN OF [place]
[2019-07-13 02:12] VITALS: BP 105/67
== END 2019-07-13 01:45 | disposition home or self-care (01) ==
LOC: ED 17:10
DX: T78.40XA Allergy, unspecified, initial encounter (principal); L50.9 Urticaria, unspecified; I11.0 Hypertensive heart disease with heart failure; I50.9 Heart failure, unspecified; F41.9 Anxiety disorder, unspecified; Z90.710 Acquired absence of both cervix and uterus; Z79.82 Long term (current) use of aspirin; Z79.899 Other long term (current) drug therapy; X58.XXXA Exposure to other specified factors, initial encounter
CPT/HCPCS: 36415; 80048; 85025; 96374; 96375; 99284; J1200; J2930; J7030